=== PATIENT | female | born 1945 | race Caucasian/White ===

== ENCOUNTER 2025-05-24 13:49 | Emergency (ER) | payer MEDICARE, SELFPAY ==
[2025-05-24] VITALS (10 sets, daily range): BP systolic 111–186; BP diastolic 56–99; PULSE 81–113; RESP 16–24; TEMP 36.5–36.6; O2SAT 95–98; BMI 24.5
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
[2025-05-24 14:24] LABS: Hematocrit 42.5 % (37-47); Hemoglobin 14.4 g/dL (12.0-15.0); Immature Granulocytes Count 0.420 X10^3/uL (0.0-0.0); Mean Corp Hgb Conc 33.9 g/dL (32-36); Mean Corpuscular Volume 93.2 fL (81-99); Mean Platelet Vol. 10.5 fl (6.2-12.0); NRBC Flagged by Analyzer 0 % (0-5); Platelet Count 245 K/mm3 (150-450); RBC Distribution Width CV 12.4 % (11.6-14.6); RBC Distribution Width SD 42.9 fl (35.1-43.9); Red Blood Count 4.56 M/mm3 (4.2-5.4); White Blood Count 11.9 K/mm3 (4.4-11.0)
[2025-05-24 14:41] LABS: Alcohol, Blood (Medical)-Serum < 10.1 mg/dL (<=10.0); Anion Gap 13 (5-15); BUN 20 mg/dL (4-19); BUN/Creat Ratio 33.6 RATIO (10-20); Calcium,Total 9.3 mg/dL (7.6-11.0); Carbon Dioxide 22.9 mmol/L (21.0-32.0); Chloride 107 mmol/L (98-108); Estimated Creatinine Clearance 44.75 ml/min (50-250); Glucose 109 mg/dL (70-99); Potassium 3.3 mmol/L (3.3-5.1)
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
[2025-05-24 15:04] LABS: Troponin T High Sensitivity 17 ng/L (<=14)
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
--- OUTSIDE RECORDS SUMMARY | 2025-05-24 15:14 | XMS RPT_ITS | CCD ---
Author Organization [facility] Care Team Providers Care Procurement Forester Name Role Phone Tabin, Edelmira Kaci Unavailable Unavailab le Ita, Arthur Unavailable Unavailable Arsenio Arteaga Unavailable Unavail able DAI MOY Referring Unavailabl e Tabjag, Edelmira Unavailable Unavailable Arsenio Arteaga Unavailable Unavailable None, No PCP Unavailable Unavailable Tabin, Edelmira F Unavailable Unavailable Ita, Arthur Unavailable Unavailable Mick Edelmira F Unavailable Unavailable Arsenio Arteaga Unavailable Unavailable Unavailable Arsenio Arteaga MD Primary Care Provider [phone] Unavailable Unavailable Arsenio Arteaga Unavailable Janee Spivey Unavailable Dr. Thor James Admitting Un available Christiano, Dr. Pressley Referring Unavailable Dr. Arsenio Arteaga Primary Care Senha Hernandez, Dr. Keegan Leon Attending MD LAURENT Peck Attending Delaney ailsilvia Arteaga, Dr. Arsenio Unger Primary Care Sneha vashanon Arteaga, Dr. Arsenio Unger Primary Care Sneha vailable Elmira, Ms. Swati Richards Attending Sanam Arteaga, Dr. Arsenio Unger Primary Care Sneha vailavasquez Ku, Ms. Swati Richards Attending Sanam Arteaga, Dr. Arsenio Unger Primary Care Sneha vailable Elmira, Ms. Swati Richards Attending Sanam Arteaga, Dr. Arsenio Unger Primary Care Sneha vailavasquez Ku, Ms. Swati Richards Attending Dr. Arsenio Pandey Primary Care Sneha MD JANEE Mello Admitting Unavailable MD JANEE SPIVEY Attending Unavailable MD JANEE SPIVEY Referring Unavailable Arsenio Arteaga MD Primary Care Provide r CECILE FERRO Attending Unavailable ABAOmar BOWLES Referring Unavailable JENNI, ARSENIO POWERSONY Primary Care Unavail able SAPPHIRE FRANCO Attending Unavailable ARTEAGA, ARSENIO YOHANA Primary Care Unavail able ARTHUR JORDAN Attending Unavailable ARSENIO ARTEAGA Primary Care Unavail able JENNI, ARSENIO UNGER Primary Care Unavail silvia Arteaga MD, Arsenio Unger Unavailable [phone] ARSENIO SHABAZZ Referring Unavailable ARTEAGA, ARSENIO UNGER Primary Care Unavail Arsenio Garcia MD A Primary Care Provider [phone] LETY BENAVIDES Attending Unavailable SELF Referring Unavailable ARSENIO ARTEAGA A Primary Care Unavailable SRINIVASAN ARTEAGAWARD A Primary Care Unavailable EVAN DELVALLE Attending Unavailable LETY BENAVIDES Attending Unavailable SRINIVASAN ARTEAGAWARD A Primary Care Unavailable SELF Referring Unavailable Allergies Allergy Classification Reported Allergen(s) Allergy Type Date of Onset Reaction(s) Facility (8 sources) Penicillins; Translations: [PENICILLINS] Propensity to adverse reactions to drug (disorder) 3 Unknown [facility] Repository (1 source) Penicillin Drug Allergy Unknown [facility] (1 source) ALLERGIES NOT ON FILE; Translations: [ALLERGIES NOT ON FILE] Propensity to adverse reactions (disorder) [facility] 3 Repository Medications Current Medications Medication Drug Class(es) Dates Sig (Normalized) Sig (Original) acetaminophen 500 mg oral tablet (1 source) take 2 tablets by mouth three times daily as needed Tylenol 500 mg oral tablet ; 2 tab(s) orally 3 times a day, As Needed Quantity: 0 Refills: 0 Ordered: 21-Mar-2023 Rebecca Walton Generic Substitution Allowed amLODIPine 5 mg / benazepril hydrochloride 10 mg oral capsule (5 sources) Dihydropyridine Calcium Channel Chelsie, Angiotensin Converting Enzyme Inhibitor take 1 capsule by mouth once daily amLODIPine-benazepr il (LOTREL) 5-10 mg per capsule Take 1 capsule by mouth once daily. Active Comment on above: Take 1 capsule by cox branson once daily. cefuroxime 500 mg oral tablet (1 source) Cephalosporin Antibacterial Start: 03-23-2023 take 1 tablet by mouth twice daily at mealtime cefuroxime 500 mg oral tablet ; 1 tab(s) orally 2 times a day Quantity: 10 Refills: 0 Ordered: 23-Mar-2023 Janee Spivey Start: 23-Mar-2023 Generic Substitution Allowed Comments: Finish all this medication unless otherwise directed by prescriber.Medicati on should be taken with plenty of water.Take with food or milk. Comment on above: Finish all this medi cation unless otherwise directed by prescriber.Medication should be taken with plenty of water.Take with food or milk. ergocalciferol 0.2 mg/ml oral solution (3 sources) Provitamin D2 Compound ergocalciferol (Vitamin D-2) 200 mcg/mL (8,000 unit/mL) drops Take by mouth once daily. Active take 1 capsule by mouth every we ek ergocalciferol 1.25 mg (50,000 intl units) oral capsule ; 1 cap(s) orally once a week Quantity: 0 Refills: 0 Ordered: 21-Mar-2023 Toyin Fontana Generic Substitution Allowed Completed/Discontinued Medications Medication Drug Class(es) Dates Sig (Normalized) Sig (Original) amLODIPine 5 mg oral tablet (9 sources) Dihydropyridine Calcium Channel Chelsie Start: 06-23-2017 amLODIPine Besylate 5 MG Oral Tablet Quantity: 90 Refills: 0 Ordered: 16-Oct-2017 DO Start : 23-Jun-2017 Active Start: 06-23-2017 amLODIPine Bes ylate 5 MG Oral Tablet Quantity: 90 Refills: 0 Start : 23-Jun-2017 Active Start: 03-11-2011 End: 03-11-2011 take 1 tablet by mouth once daily amlodipine 5 mg tablet ; 1 tab(s) orally once a day Quantity: 30 Refills: 0 Ordered: 11-Mar-2011 Gretta Campbell Start: 11-Mar-2011 End: 11-Mar-2011 Generic Substitution Allowed ibuprofen 800 mg oral tablet (12 sources) Nonsteroidal Anti-inflammatory Drug Start: 06-23-2017 take 1 tablet by mouth twice daily Ibuprofen 800 MG Oral Tablet take 1 tablet by mouth twice a day for ONE MONTH Quantity: 60 Refills: 0 Ordered: 23-Jun-2017 DO Start : 23-Jun-2017 Active take 1 tablet by jayden th three times daily as needed ibuprofen 800 mg oral tablet ; 1 tab(s) orally 3 times a day, As Needed Quantity: 0 Refills: 0 Ordered: 21-Mar-2023 Rebecca Walton Generic Substitution Allowed Comment on above: Take 800 mg by mouth twice daily. Problems Active Problems Problem Classification Problem Date Documented Da te Episodic/Chronic Allergic reactions (1 source) Allergy status to penicillin; Translations: [Allergy status to penicillin] Onset: 03-27-2023 Episodic Coagulation and hemorrhagic disorders (1 source) Thrombocytopenia, unspecified; Translations: [Thrombocytopenia, unspecified] Onset: 03-28-2023 Chronic Deficiency and other anemia (1 source) Anemia, unspecified; Translations: [Anemia, unspecified] Onset: 03-28-2023 Episodic Essential hypertension (2 sources) Essential (primary) hypertension; Translations: [Essential (primary) hypertension] Onset: 03-22-2023 Chronic Fever of unknown origin (2 sources) Fever; Translations: [Fever, unspecified] 03-22-2023 Episodic Fluid and electrolyte disorders (3 sources) Hypokalemia; Translations: [Hypopotassemia] Onset: 03-22-2023 03-22-2023 Episodic Genitourinary symptoms and ill-defined conditions (3 sources) Increased frequency of urination; Translations: [Frequency of micturition] Onset: 01-24-2024 01-24-2024 Episodic Malaise and fatigue (1 source) Weakness; Translations: [Weakness] Onset: 03-27-2023 Episodic Osteoarthritis (20 sources) Arthritis of hip; Translations: [Unilateral primary osteoarthritis, unspecified hip] Onset: 11-12-2013 Chronic Other connective tissue disease (9 sources) History of total knee arthroplasty; Translations: [Presence of right artificial knee joint] Onset: 08-17-2016 Chronic Other connective tissue disease (1 source) Pain in right lower leg; Translations: [Pain in right lower leg] Onset: 03-28-2023 Episodic Other connective tissue disease (1 source) Pain in right leg; Translations: [Pain of right lower extremity] Onset: 11-01-2024 Episodic Other ear and sense organ disorders (2 sources) Mixed conductive AND sensorineural hearing loss; Translations: [Mixed hearing loss, bilateral] Chronic Other ear and sense organ disorders (2 sources) Bilateral hearing loss; Translations: [Mixed hearing loss, bilateral] Chronic Other ear and sense organ disorders (2 sources) Mixed conductive and sensorineural hearing loss, unilateral, 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; Translations: [Mixed conductive and sensorineural hearing loss, unilateral, 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] Onset: 08-28-2023 Chronic Other ear and sense organ disorders (2 sources) Sensorineural hearing loss, unilateral, right ear, with restricted hearing on the contralateral side; Translations: [Sensorineural hearing loss, unilateral, right ear, with restricted hearing on the contralateral side] Onset: 08-28-2023 Chronic Other ear and sense organ disorders (2 sources) Bilateral tinnitus; Translations: [Tinnitus, unspecified] Episodic Other ear and sense organ disorders (1 source) Presbycusis; Translations: [Presbycusis, bilateral] 09-19-2023 Episodic Other gastrointestinal disorders (1 source) Constipation; Translations: [Constipation, unspecified] 01-24-2024 Episodic Other gastrointestinal disorders (2 sources) Constipation, unspecified; Translations: [Constipation, unspecified] Onset: 01-24-2024 Episodic Other inflammatory condition of skin (2 sources) Other pruritus; Translations: [Other pruritus] Onset: 03-05-2024 Episodic Other nervous system disorders (2 sources) Difficulty walking; Translations: [Difficulty in walking] Chronic Other nervous system disorders (2 sources) Encephalopathy, unspecified; Translations: [Encephalopathy, unspecified] Onset: 03-22-2023 Chronic Other nervous system disorders (1 source) Difficulty in walking, not elsewhere classified; Translations: [Difficulty in walking, not elsewhere classified] Onset: 03-14-2023 Chronic Other nervous system disorders (1 source) Unspecified abnormalities of gait and mobility; Translations: [Unspecified abnormalities of gait and mobility] Onset: 03-27-2023 Episodic Other non-traumatic joint disorders (6 sources) Hip pain; Translations: [Pain in joint, pelvic region and thigh] Episodic Other non-traumatic joint disorders (6 sources) Hip stiff; Translations: [Stiffness of joint, not elsewhere classified, pelvic region and thigh] Episodic Other non-traumatic joint disorders (1 source) Stiffness of unspecified hip, not elsewhere classified; Translations: [Stiffness of unspecified hip, not elsewhere classified] Onset: 03-14-2023 Episodic Other non-traumatic joint disorders (1 source) Pain in left hip; Translations: [Pain in left hip] Onset: 03-14-2023 Episodic Prolapse of female genital organs (3 sources) Midline cystocele; Translations: [Cystocele, midline] Onset: 01-24-2024 01-24-2024 Chronic Residual codes; unclassified (4 sources) Disorientation, unspecified; Translations: [Disorientation, unspecified] Onset: 03-27-2023 Episodic Residual codes; unclassified (2 sources) Altered mental status, unspecified; Translations: [Altered mental status, unspecified] Onset: 03-22-2023 Episodic Residual codes; unclassified (1 source) Transient alteration of awareness; Translations: [Transient alteration of awareness] Onset: 03-27-2023 Episodic Residual codes; unclassified (1 source) Other amnesia; Translations: [Other amnesia] Onset: 03-27-2023 Episodic Spondylosis; intervertebral disc disorders; other back problems (5 sources) Osteoarthritis of lumbar spinal facet joint; Translations: [Spondylosis without myelopathy or radiculopathy, lumbar region] Onset: 12-25-2018 12-25-2018 Chronic Spondylosis; intervertebral disc disorders; other back problems (1 source) Spinal stenosis, lumbar region without neurogenic claudication; Translations: [Spinal stenosis, lumbar region without neurogenic claudication] Onset: 12-25-2018 Sprains and strains (1 source) Sprain of unspecified cruciate ligament of right knee, initial encounter; Translations: [Sprain of cruciate ligament of right knee, initial encounter] Onset: 11-01-2024 Episodic Superficial injury; contusion (2 sources) Contusion of right knee; Translations: [Contusion of right knee, initial encounter] 10-30-2024 Episodic Unclassified (2 sources) R41.0 DELIRIUM ACUTE 03-23-2023 Comment on above: R41.0 DELIRIUM ACUTE Unclassified (1 source) Lactate blood increase 03-22-2023 Unclassified (1 source) Unspecified dementia, unspecified severity, with agitation; Translations: [Unspecified dementia, unspecified severity, with agitation] Onset: 03-28-2023 Unclassified (1 source) Elevation of levels of liver transaminase levels; Translations: [Elevation of levels of liver transaminase levels] Onset: 03-28-2023 Unclassified (1 source) Contact with and (suspected) exposure to COVID-19; Translations: [Contact with and (suspected) exposure to COVID-19] Onset: 03-22-2023 Urinary tract infections (3 sources) Urinary tract infectious disease; Translations: [Urinary tract infection, site not specified] Onset: 03-22-2023 03-22-2023 Episodic Past or Other Problems Problem Classification Problem Date Documented Da te Episodic/Chronic Joint disorders and dislocations; trauma-related (5 sources) Acute tear of lateral meniscus of right knee; Translations: [Other tear of lateral meniscus, current injury, right knee, initial encounter] Onset: 01-05-2016 01-05-2016 Episodic Other bone disease and musculoskeletal deformities (5 sources) Osteopenia; Translations: [Other specified disorders of bone density and structure, other site] Onset: 12-25-2018 12-25-2018 Episodic Other connective tissue disease (5 sources) Iliotibial band friction syndrome of left knee; Translations: [Iliotibial band syndrome, left leg] Onset: 06-17-2014 06-17-2014 Episodic Other ear and sense organ disorders (2 sources) Tinnitus, bilateral; Translations: [Tinnitus, bilateral] Onset: 08-28-2023 Episodic Other non-traumatic joint disorders (8 sources) Pain in right knee; Translations: [Pain in joint, lower leg] Onset: 11-12-2013 11-12-2013 Episodic Other screening for suspected conditions (not mental disorders or infectious disease) (16 sources) Patient encounter status; Translations: [Other screening mammogram] Onset: 08-12-2013 03-22-2023 Episodic Spondylosis; intervertebral disc disorders; other back problems (10 sources) Chronic low back pain; Translations: [Lumbago with sciatica, left side] Onset: 12-25-2018 12-25-2018 Episodic Unclassified (6 sources) Patient encounter status; Translations: [Encounter for screening mammogram for malignant neoplasm of breast] Unclassified (1 source) ALT MENTAL 03-22-2023 Comment on above: ALT MENTAL Unclassified (1 source) DELIRIUM R41.0 03-22-2023 Comment on above: DELIRIUM R41.0 Unclassified (1 source) DELIRIUM R41.0. 03-23-2023 Comment on above: DELIRIUM R41.0. Unclassified (3 sources) Onset: 09-19-2023 09-19-2023 NEGATED: Highlighted row has not occurred!Residual codes; unclassified (17 sources) Disease Episodic Results Test Name Value Interpretation Reference Range Facility CNOVon 11-20-2024 CNOV Office Visit (ACMMOT ) -- MIKO REECE ([id number]) 1945 F Date Time Provider Department 11/20/24 10:30 AM LETY BENAVIDES ACLILLIAN During your visit today, we recorded the following information about you: Weight Height 59 kg 1.6 m Lety Benavides DO 11/20/2024 11:14 AM Signed Miko is here to 3 weeks to follow-up on her right knee sprain. She is doing well. She states she is resumed most of her normal activities. At this point she has unrestricted range of motion of her knee with no strength deficits. There is no gross instability of her prosthesis. Her right lower extremities grossly neurovascularly intact. At this point she can perform activities to her tolerance return to the office as needed. Assessment: Right knee contusion with history of right total knee arthroplasty I spent a total of 10 minutes on the date of the service which included preparing to see the patient, [id number] patient care, completing clinical documentation, performing a medically appropriate examination, and counseling and educating the patient/family/caregiver. Referring Provider: SELF [200] Allergies As of Date: 11/20/2024 Noted Allergy Reaction PENICILLINS 08/12/2013 16 - Unknown Comments: Pt had when wisdom teeth were removed, can't remember the reaction. Date Reviewed: 11/20/2024 Reviewed by: Pamela Wang - Fully Assessed Reason for Visit: Follow Up [171] Knee Pain [132] Primary Visit Diagnosis:Status post total right knee replacement using cement [Z96.651] Other Visit Diagnosis:Contusion of right knee, initial encounter [S80.01XA] Prescriptions as of 11/20/2024 - ibuprofen (MOTRIN) 800 mg tablet Take 800 mg by mouth twice daily. - amLODIPine-benazepril (LOTREL) 5-10 mg per capsule Take 1 capsule by mouth once daily. Problem List As Of Date 11/20/2024 Noted Resolved Special screening for malignant neoplasms, colo*08/12/2013 Knee pain, right [M25.561] 11/12/2013 Osteoarthritis of right knee [M17.11] 11/12/2013 Iliotibial band syndrome of left side [M76.32] 06/17/2014 Osteoarthritis of left knee [M17.12] 06/17/2014 Acute lateral meniscus tear of right knee [S83.*01/05/2016 Primary osteoarthritis of right knee [M17.11] 07/11/2016 Osteoarthrosis, localized, primary, knee [M17.1*07/14/2016 Status post total right knee replacement using *08/17/2016 Chronic bilateral low back pain with left-sided*12/25/2018 Osteopenia of lumbar spine [M85.88] 12/25/2018 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 Follow-up and Disposition History for Encounter Date Provider Department Center 11/20/2024 [id number], [facility] Encounter Status:Closed by LETY BENAVIDES on 11/20/24 [facility] ED NOTEon 11-01-2024 ED NOTE HNO ID: [id number] Author: RADHA MILIAN RN Service: ? Author Type: Registered Nurse Type: ED Notes Filed: 11/01/2024 17:41 Note Text: Reviewed d/c instructions with pt. Pt states that they understand and have no questions regarding d/c and follow- up. Pt was advised to follow up with their PCP and return to ED if symptoms worsen prior to follow-up with PCP. Pt verbalized understanding. [facility] ED NOTE HNO ID: [id number] Author: PATEL BAUMANN RN Service: Nursing Author Type: Registered Nurse Type: ED Notes Filed: 11/01/2024 15:26 Note Text: Report given to Radha ESPINOZA [facility] ED NOTE HNO ID: [id number] Author: PATEL BAUMANN RN Service: Nursing Author Type: Registered Nurse Type: ED Notes Filed: 11/01/2024 14:55 Note Text: Pt AANDOX3 comes to ED with c/o right knee pain, right welch pain, right ankle pain and r foot swelling that started on 10/22/2024 after a fall. Pt stated she went to see PCP and Makayla who did an xray. Pt stated Antonetten said xrays were negative for a fracture. Pt stated swelling to right knee and ankle. Pt not asking for pain meds at this time because she took ibuprofen before she came to ED. [facility] ED PROV NOTEon 11-01-2024 ED PROV NOTE HNO ID: [id number] Author: EVAN DELVALLE MD Service: Emergency Medicine Author Type: Physician Type: ED Provider Notes Filed: 11/01/2024 17:16 Note Text: ED Provider Note Patient Name: Miko Reece : 1945 SERVICE DATE: 11/01/24 History Patient presents with: Knee Pain: Right knee pain/injury that radiates down right leg- pt states she slipped on ice and fell on 10/22/24 and was seen by ortho who did an xray but pain has continued to get worse Leg Pain Location: Fell about a week ago injured right knee x-rays were negative still having pain and no pain to the right calf and right thigh Quality: Right leg. Severity: Moderate Onset quality: Sudden Duration: 10 days Timing: Constant Chronicity: New Context: Slipped and fell injured her right knee Relieved by: Nothing Worsened by: Flexion Associated symptoms: no chest pain, no cough, no shortness of breath, no sore throat, no vomiting and no wheezing PAST MEDICAL HISTORY Diagnosis Date Hypertension PAST SURGICAL HISTORY Procedure Laterality Date ARTHROCENTESIS ASPIRAND/INJ MAJOR JT/BURSA W/O US #3 Euflexxa Rt knee ARTHROCENTESIS ASPIRAND/INJ MAJOR JT/BURSA W/O US 04-23-15-Verdun right knee cortisone injection ARTHROCENTESIS ASPIRAND/INJ MAJOR JT/BURSA W/O US 05-19-15-Verdun #3 Euflexxa right knee ARTHROCENTESIS ASPIRAND/INJ MAJOR JT/BURSA W/O US 05-28-15-Verdun #3 Euflexxa right knee ARTHROCENTESIS ASPIRAND/INJ MAJOR JT/BURSA W/O US 01-26-16-Verdun #3 Euflexxa right knee ARTHRP KNE CONDYLEANDPLATU MEDIALANDLAT COMPARTMENTS Right 07/11/16 KNEE ARTHROSCOPY January 03, 2011 right PAST SURGICAL HISTORY OF 2002 Left big toe joint replacement FAMILY HISTORY Problem Relation Age of Onset Breast Cancer Mother 70 mastectomy Breast Cancer Daughter 43 double mastectomy Cancer Father unknown Prostate Cancer Brother x2 Social History Tobacco Use Smoking status: Never Smokeless tobacco: Never Vaping Use Vaping status: Never Used Substance and Sexual Activity Alcohol use: Yes Alcohol/week: 1.0 standard drink of alcohol Types: 1 Glasses of Wine (5oz) per week Comment: a small glass of wine every day or so Drug use: No Sexual activity: Not on file ALLERGIES Allergen Reactions Penicillins Unknown Pt had when wisdom teeth were removed, can't remember the reaction. Review of Systems Constitutional: Negative. HENT: Negative for sore throat. Eyes: Negative. Respiratory: Negative for cough, shortness of breath and wheezing. Cardiovascular: Negative for chest pain. Gastrointestinal: Negative for vomiting. Genitourinary: Negative. Musculoskeletal: Positive for gait problem. Skin: Negative. Psychiatric/Behavioral: Negative. All other systems reviewed and are negative. Physical Exam Vitals [11/01/24 1433] BP Pulse Temp Temp src Resp SpO2 Weight Height 191/86 106 36.8 ?C (98.2 ?F) Tympanic 16 97 % 59 kg (130 lb) -- Physical Exam Vitals and nursing note reviewed. Constitutional: Appearance: She is well-developed. HENT: Nose: Nose normal. Mouth/Throat: Mouth: Mucous membranes are moist. Eyes: Extraocular Movements: Extraocular movements intact. Conjunctiva/sclera: Conjunctivae normal. Pupils: Pupils are equal, round, and reactive to light. Cardiovascular: Rate and Rhythm: Normal rate and regular rhythm. Pulses: Normal pulses. Heart sounds: Normal heart sounds, S1 normal and S2 normal. No murmur heard. No gallop. Pulmonary: Effort: Pulmonary effort is normal. Breath sounds: Normal breath sounds. Abdominal: General: Bowel sounds are normal. Palpations: Abdomen is soft. Musculoskeletal: General: Normal range of motion. Cervical back: Normal range of motion and neck supple. Legs: Comments: Mild tenderness to the right calf. Mild tenderness medial aspect of the right knee. No laxity. No joint effusion. Full flexion extension to the right knee Skin: General: Skin is warm and dry. Capillary Refill: Capillary refill takes less than 2 seconds. Neurological: General: No focal deficit present. Mental Status: She is alert and oriented to person, place, and time. Psychiatric: Mood and Affect: Mood normal. Diagnostic Testing ED Labs Ordered and Reviewed - No data to display Procedures ED Course / Clinical Impression Clinical Impressions as of 11/01/24 1716 Sprain of cruciate ligament of right knee, initial encounter Pain of right lower extremity MDM / Disposition / Plan MEDICAL DECISION MAKING Number and Complexity of Problems Differential Diagnosis: DVT loose prosthesis MDM Data External documents reviewed prior inpatient notes. My EKG interpretation: My CT interpretation: My X-ray interpretation: My Ultrasound interpretation: Tests considered but not ordered Decision rules/scores evaluated: Discussed with: Treatment and Disposition ED Course: Patient suffered a mechanical injury about (more content not included)... Normal [facility] US DVT LOWER RTon 11-01-2024 US DVT LOWER RT * * *Final Report* * * DATE OF EXAM: Nov 01 2024 4:34PM ASU 1007 - US DVT LOWER RT / PROCEDURE REASON: Leg deep vein thrombosis (DVT), new symptoms * * * * Physician Interpretation * * * * EXAMINATION: RIGHT LOWER EXTREMITY DEEP VENOUS ULTRASOUND WITH DOPPLER IMAGING CLINICAL HISTORY: Leg pain or tenderness. TECHNIQUE: Grayscale with compression maneuvers, color Doppler and spectral Doppler imaging of the right proximal deep veins was performed. Grayscale with compression maneuvers of the peroneal and posterior tibial veins was performed. The right great and small saphenous veins were evaluated at their insertion to the deep system. The contralateral common femoral vein was imaged for comparison. Images were obtained and stored in a permanent archive. MQ: [id number] COMPARISON: None RESULT: RIGHT LOWER EXTREMITY PROXIMAL DEEP VEINS Distal External Iliac, Common Femoral and proximal Profunda Veins: Compression: Normal Doppler: Normal, spontaneous respirophasic flow. Normal response to augmentation. Femoral vein: Compression: Normal Doppler: Normal, spontaneous flow. Normal response to augmentation. Popliteal vein: Compression: Normal Doppler: Normal, spontaneous flow. Normal response to augmentation. CALF DEEP VEINS Peroneal veins: Normal compression. Posterior tibial veins: Normal compression. Gastrocnemius and Soleal veins: Not imaged. SUPERFICIAL VEINS Great saphenous: Patent and compressible at insertion into common femoral vein; not otherwise assessed. Small Saphenous: Patent and compressible in the proximal calf, not otherwise assessed. LEFT LOWER EXTREMITY (FOR COMPARISON) Common Femoral Vein: Compression: Normal Doppler: Normal, spontaneous respirophasic flow. Normal response to augmentation. IMPRESSION: Negative study for proximal DVT in the right lower extremity. Negative study for calf DVT in the right lower extremity. Negative study for superficial thrombophlebitis in the imaged segments of the right lower extremity. Substance Abuse Services Director: EMANI Transcribe Date/Time: Nov 01 2024 5:06P Dictated by : JANEE ALBA MD This examination was interpreted and the report reviewed and electronically signed by: JANEE ALBA MD on Nov 01 2024 5:08PM EST [id number] Normal [facility] XR ANKLE 3V AP/LAT/OBL RTon 11-01-2024 XR ANKLE 3V AP/LAT/OBL RT * * *Final Report* * * DATE OF EXAM: Nov 01 2024 3:23PM ASX [id number] - XR ANKLE 3V AP/LAT/OBL RT / PROCEDURE REASON: Ankle pain, no prior imaging * * * * Physician Interpretation * * * * [id number] INDICATION: Ankle pain, no prior imaging EXAMINATION: XR ANKLE 3V AP/LAT/OBL RT, XR KNEE 2V AP/LAT RT COMPARISON:None RESULT: 3 views of the right ankle demonstrate soft tissue swelling both medially and laterally. No acute bony abnormality is seen. Vascular calcifications are noted. 2 views of the right knee. Right knee prosthesis present. Soft tissue swelling noted involving suprapatellar and infrapatellar soft tissues. No acute abnormality identified IMPRESSION: No acute abnormality identified. Right knee prosthesis. Substance Abuse Services Director: PSCB Transcribe Date/Time: Nov 01 2024 3:30P Dictated by : GERONIMO FABIAN MD This examination was interpreted and the report reviewed and electronically signed by: GERONIMO FABIAN MD on Nov 01 2024 3:34PM EST [id number] [facility] XR KNEE 2V AP/LAT RTon 11-01 XR KNEE 2V AP/LAT RT * * *Final Report* * * DATE OF EXAM: Nov 01 2024 3:23PM ASX 5207 - XR KNEE 2V AP/LAT RT / PROCEDURE REASON: Trauma * * * * Physician Interpretation * * * * [id number] INDICATION: Ankle pain, no prior imaging EXAMINATION: XR ANKLE 3V AP/LAT/OBL RT, XR KNEE 2V AP/LAT RT COMPARISON:None RESULT: 3 views of the right ankle demonstrate soft tissue swelling both medially and laterally. No acute bony abnormality is seen. Vascular calcifications are noted. 2 views of the right knee. Right knee prosthesis present. Soft tissue swelling noted involving suprapatellar and infrapatellar soft tissues. No acute abnormality identified IMPRESSION: No acute abnormality identified. Right knee prosthesis. Substance Abuse Services Director: [facility] Transcribe Date/Time: Nov 01 2024 3:30P Dictated by : GERONIMO FABIAN MD This examination was interpreted and the report reviewed and electronically signed by: GERONIMO FABIAN MD on Nov 01 2024 3:34PM EST [id number] [facility] CNOVon 10-30-2024 CNOV Office Visit (SRIKANTH ) -- MIKO REECE ([id number]) 1945 F Date Time Provider Department 10/30/24 2:00 PM LETY BENVAIDES During your visit today, we recorded the following information about you: Weight Height 59 kg 1.6 m Lety Benavides DO 10/30/2024 2:42 PM Signed Addendum: Assessment/Plan: ASSESSMENT/PLAN: 1. Status post total right knee replacement using cement - ICD9: V43.65, ICD10: Z96.651 (primary diagnosis) At this point did have a discussion with regard to the nature of the problem in the context of her history of a right total knee arthroplasty. I did review the x-rays taken at the outside institution with the patient today. I did recommend the initiation of a home exercise program since she is improving already. She was in agreement this. Did instruct her today. She should continue to use anti-inflammatory medications and acetaminophen as needed for pain. She had no further questions at this time. 2. Contusion of right knee, initial encounter - ICD9: 924.11, ICD10: S80.01XA Lety DO Makayla I spent a total of 30 minutes on the date of the service which included preparing to see the patient, [id number] patient care, completing clinical documentation, obtaining and/or reviewing separately obtained history, performing a medically appropriate examination, counseling and educating the patient/family/caregiver, ordering medications, tests, or procedures, independently interpreting results (not separately reported), and communicating results to the patient/family/caregiver. I agree with the Chief Complaint, ROS, and Past Histories independently gathered by the clinical lab support technician and the remaining scribed note accurately describes my personal service to the patient. CRISTOBAL Reece is a 79 year old female who presents with complaint of right knee pain. Patient has a history of right TKA in 2016. She reports falling from standing without loss of consciousness about 1 week ago. She does report that her leg twisted underneath her. She did not fall directly onto the knee. Her pain is with weightbearing. She does have pain with bed mobility and with sit to stand. She denies numbness or tingling. Current Outpatient Medications Medication Sig ibuprofen (MOTRIN) 800 mg tablet Take 800 mg by mouth twice daily. amLODIPine-benazepril (LOTREL) 5-10 mg per capsule Take 1 capsule by mouth once daily. No current facility-administered medications for this visit. Review of Systems Constitutional: Negative. HENT: Negative. Respiratory: Negative. Cardiovascular: Negative. Gastrointestinal: Negative. Endocrine: Negative. Skin: Negative. Neurological: Negative for numbness. Hematological: Negative. Musculoskeletal: Positive for joint swelling. Right Knee Exam Tenderness The patient is experiencing tenderness in the medial joint line and lateral joint line (TTP in the posterior knee). Range of Motion Extension: 5 Flexion: 120 Tests Varus: negative Valgus: negative Patellar apprehension: negative Other Erythema: absent Scars: present Sensation: normal Pulse: present Swelling: mild Comments: Mild ecchymosis at the medial gastroc and medial ankle. Referring Provider: SELF [[id number]] Allergies As of Date: 10/30/2024 Noted Allergy Reaction PENICILLINS 08/12/2013 16 - Unknown Comments: Pt had when wisdom teeth were removed, can't remember the reaction. Date Reviewed: 10/30/2024 Reviewed by: Pamela Wang - Fully Assessed Reason for Visit: Knee Pain [132] Swelling [205] Primary Visit Diagnosis:Status post total right knee replacement using cement [Z96.651] Other Visit Diagnosis:Contusion of right knee, initial encounter [S80.01XA] Prescriptions as of 10/30/2024 - ibuprofen (MOTRIN) 800 mg tablet Take 800 mg by mouth twice daily. - amLODIPine-benazepril (LOTREL) 5-10 mg per capsule Take 1 capsule by mouth once daily. Problem List As Of Date 10/30/2024 Noted Resolved Special screening for malignant neoplasms, colo*08/12/2013 Knee pain, right [M25.561] 11/12/2013 Osteoarthritis of right knee [M17.11] 11/12/2013 Iliotibial band syndrome of left side [M76.32] 06/17/2014 Osteoarthritis of left knee [M17.12] 06/17/2014 Acute lateral meniscus tear of right knee [S83.*01/05/2016 Primary osteoarthritis of right knee [M17.11] 07/11/2016 Osteoarthrosis, localized, primary, knee [M17.1*07/14/2016 Status post total right knee replacement using *08/17/2016 Chronic bilateral low back pain with left-sided*12/25/2018 Osteopenia of lumbar spine [M85.88] 12/25/2018 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 Follow-up and Disposition History for Encounter Date (more content not included)... Normal [facility] XR KNEE RIGHT 4+ VIEWSon XR KNEE RIGHT 4+ VIEWS Interpreted By: Yasmeen Xavier, STUDY: XR KNEE RIGHT 4+ VIEWS; 10/23/2024 3:52 pm INDICATION: Signs/Symptoms:right knee pain. COMPARISON: none ACCESSION NUMBER(S): [id number] ORDERING CLINICIAN: INTERFACE UNSPECIFIELDPROVIDER FINDINGS: Right Total knee arthroplasty without evidence of hardware complication. No effusion. No fracture or dislocation. No osseous lesion. Extensive atherosclerotic calcifications of the arterial vasculature without IMPRESSION Right Total knee arthroplasty without evidence of hardware complication. MACRO none Signed by: Yasmeen Xavier 10/24/2024 3:55 PM Dictation workstation: [id number] Normal [facility] Creatine kinaseon 03-05-2024 CK [Catalytic activity/Vol] 87 U/L Normal 0-215 [facility] Comment on above: Performed By: #### 2 157-6 #### FARIDA Crenshaw ([id number]) [facility] ([facility]) [address] [place] [address] Lactate dehydrogenaseon 02-07 LDH Lactate to pyruvate reaction [Catalytic activity/Vol] 151 U/L Normal 84-246 [facility] Comment on above: Performed By: #### 1 4804-9 #### FARIDA Crenshaw ([id number]) [facility] ([facility]) [address] [place] [address] MISCELLANEOUS LAB TESTon SCAN RESULT See Scanned Result Normal [facility] Comment on above: Order Comment: Ivis almodovar Performed By: #### M ISC1 #### EXT NON INTERFACED LABS (BEAKER) ([facility]) [id number] [place] [address] Nuclear Abon 03-05-2024 Nuclear Ab Hep2 substrate Ql (S) Negative Normal Negative [facility] Comment on above: Result Comment: The Antinuclear Antibody (FAHAD) test was performed using indirect immunofluorescence assay with HEp-2 cells slide. Performed By: #### 5 9069-5 #### FARIDA Crenshaw ([id number]) [facility] ([facility]) [id number] [place] [address] POCT UA (nonautomated) maxwell celaya resultedon 01-24-2024 Glucose Test strip (U) [Mass/Vol] Negative NEGATIVE mg/dl [facility] Work Phone: Hemoglobin Ql (U) Negative NEGATIVE [facility] Work Phone: Leukocyte esterase Test strip Ql (U) Negative NEGATIVE [facility] Work Phone: Nitrite Ql (U) Negative NEGATIVE [facility] Work Phone: POC Protein, Urine Negative NEGATIVE, 30 (1+) mg/dl [facility] Work Phone: [facility] Work Phone: CBCon 03-28-2023 Erythrocyte distribution width (RBC) [Ratio] 15.2 % High 11.5 - 14.5 [facility] Comment on above: Performed By: #### C OAGS #### [facility] [address] [place] [address] Hematocrit (Bld) [Volume fraction] 29.0 % Low 36.0 - 46.0 [facility] Comment on above: Performed By: #### C OAGS #### [facility] [address] [place] [address] Hemoglobin (Bld) [Mass/Vol] 9.7 g/dL Low 12.0 - 16.0 [facility] Comment on above: Performed By: #### C OAGS #### [facility] [address] [place] [address] MCHC (RBC) [Mass/Vol] 33.4 g/dL Normal 32.0 - 36.0 [facility] Comment on above: Performed By: #### C OAGS #### [facility] [address] [place] [address] MCV (RBC) [Entitic vol] 90 fL Normal 80 - 100 [facility] Comment on above: Performed By: #### C OAGS #### [facility] [address] [place] [address] Platelets (Bld) [#/Vol] 125 10*3/uL Low 150 - 450 [facility] Comment on above: Performed By: #### C OAGS #### [facility] [address] [place] [address] RBC 3.21 x10E12/L Low 4.00 - 5.20 [facility] Comment on above: Performed By: #### C OAGS #### [facility] [address] [place] [address] WBC (Bld) [#/Vol] 4.9 10*3/uL Normal 4.4 - 11.3 [facility] Comment on above: Performed By: #### C OAGS #### [facility] [id number] [place] [address] COMPREHENSIVE PANELon 03-28- 2022 Albumin [Mass/Vol] 2.3 g/dL Low 3.4 - 5.0 [facility] Comment on above: Performed By: #### C MP #### [facility] [address] [place] [address] ALP [Catalytic activity/Vol] 182 U/L High 33 - 136 [facility] Comment on above: Performed By: #### C MP #### [facility] [id number] [place] [address] ALT [Catalytic activity/Vol] 37 U/L Normal 7 - 45 [facility] Comment on above: Result Comment: Елена ents treated with Sulfasalazine may generate falsely decreased results for ALT. Performed By: #### C MP #### [facility] [address] [place] [address] Anion gap [Moles/Vol] 11 mmol/L Normal 10 - 20 [facility] Comment on above: Performed By: #### C MP #### [facility] [address] [place] [address] AST [Catalytic activity/Vol] 58 U/L High 9 - 39 [facility] Comment on above: Performed By: #### C MP #### [facility] [address] [place] [address] Bilirubin [Mass/Vol] 1.0 mg/dL Normal 0.0 - 1.2 [facility] Comment on above: Performed By: #### C MP #### [facility] [address] [facility] [place] [address] Calcium [Mass/Vol] 7.8 mg/dL Low 8.6 - 10.3 [facility] Comment on above: Performed By: #### C MP #### [facility] [address] [facility] [place] [address] Chloride [Moles/Vol] 107 mmol/L Normal 98 - 107 [facility] Comment on above: Performed By: #### C MP #### [facility] [address] [place] [address] Creatinine [Mass/Vol] 0.53 mg/dL Normal 0.50 - 1.05 [facility] Comment on above: Performed By: #### C MP #### [facility] [address] [place] [address] eGFR FEMALE >90 Normal >90 [facility] Comment on above: Result Comment: CALC ULATIONS OF ESTIMATED GFR ARE PERFORMED USING THE 2020 CKD-EPI STUDY REFIT EQUATION WITHOUT THE RACE VARIABLE FOR THE IDMS-TRACEABLE CREATININE METHODS. https://jasn.asnjournals.org/content//ASN.33593728 88 Performed By: #### C MP #### [facility] [address] [facility] [place] [address] Glucose [Mass/Vol] 83 mg/dL Normal 74 - 99 [facility] Comment on above: Performed By: #### C MP #### [facility] [address] [place] [address] HCO3 (Bld) [Moles/Vol] 27 mmol/L Normal 21 - 32 [facility] Comment on above: Performed By: #### C MP #### [facility] [address] [place] [address] Potassium [Moles/Vol] 3.6 mmol/L Normal 3.5 - 5.3 [facility] Comment on above: Performed By: #### C MP #### [facility] [address] [place] [address] Protein [Mass/Vol] 5.2 g/dL Low 6.4 - 8.2 [facility] Comment on above: Performed By: #### C MP #### [facility] [address] [place] [address] Sodium [Moles/Vol] 141 mmol/L Normal 136 - 145 [facility] Comment on above: Performed By: #### C MP #### [facility] [address] [place] [address] Urea nitrogen [Mass/Vol] 30 mg/dL High 6 - 23 [facility] Comment on above: Performed By: #### C MP #### [facility] [address] [place] [address] MAGNESIUMon 03-28-2023 Magnesium [Mass/Vol] 1.96 mg/dL Normal 1.60 - 2.40 [facility] Comment on above: Performed By: #### C OAGS #### [facility] [address] [place] [address] PHOSPHORUSon 03-28-2023 Phosphate [Mass/Vol] 4.1 mg/dL Normal 2.5 - 4.9 [facility] Comment on above: Result Comment: The performance characteristics of phosphorus testing in heparinized plasma have been validated by the individual laboratory site where testing is performed. Testing on heparinized plasma is not approved by the FDA; however, such approval is not necessary. Performed By: #### C OAGS #### [facility] [address] [place] [address] ACUTE TOXICOLOGY PANEL, BLOO Don 03-27-2023 Acetaminophen [Mass/Vol] ug/mL Normal 10.0 - 30.0 [facility] Comment on above: Performed By: #### D RUBL #### [facility] [address] [place] [address] Ethanol [Mass/Vol] mg/dL Normal [facility] Comment on above: Result Comment: FOR MEDICAL USE ONLY. . REF VALUES <10 Performed By: #### D RUBL #### [facility] [address] [place] [address] SALICYLATE <3 Normal 4 - 20 [facility] Comment on above: Performed By: #### D RUBL #### [facility] [address] [place] [address] CBC AND DIFFERENTIALon 03-27 % AUTOMATED IMMATURE GRAN 1.5 % High 0.0 - 0.9 [facility] Comment on above: Result Comment: Mayra ture Granulocyte Count (IG) includes promyelocytes, myelocytes and metamyelocytes but does not include bands. Percent differential counts (%) should be interpreted in the context of the absolute cell counts (cells/L). Performed By: #### C BCDF #### [facility] [address] [place] [address] Basophils (Bld) [#/Vol] 0.03 10*3/uL Normal 0.00 - 0.10 [facility] Comment on above: Result Comment: Auto mated WBC differential has been confirmed by manual smear. Performed By: #### C BCDF #### [facility] [address] [place] [address] Basophils/100 WBC (Bld) 0.6 % Normal 0.0 - 2.0 [facility] Comment on above: Performed By: #### C BCDF #### [facility] [address] [place] [address] Eosinophils (Bld) [#/Vol] 0.02 10*3/uL Normal 0.00 - 0.40 [facility] Comment on above: Performed By: #### C BCDF #### [facility] [address] [place] [address] Eosinophils/100 WBC (Bld) 0.4 % Normal 0.0 - 6.0 [facility] Comment on above: Performed By: #### C BCDF #### [facility] [address] [place] [address] Erythrocyte distribution width (RBC) [Ratio] 14.9 % High 11.5 - 14.5 [facility] Comment on above: Performed By: #### C BCDF #### [facility] [address] [facility] [place] [address] Hematocrit (Bld) [Volume fraction] 35.6 % Low 36.0 - 46.0 [facility] Comment on above: Performed By: #### C BCDF #### [facility] [address] [facility] [place] [address] Hemoglobin (Bld) [Mass/Vol] 11.7 g/dL Low 12.0 - 16.0 [facility] Comment on above: Performed By: #### C BCDF #### [facility] [address] [place] [address] Lymphocytes (Bld) [#/Vol] 2.39 10*3/uL Normal 0.80 - 3.00 [facility] Comment on above: Performed By: #### C BCDF #### [facility] [id number] [place] [address] [place] [address] Lymphocytes/100 WBC (Bld) 50.1 % Normal 13.0 - 44.0 [facility] Comment on above: Performed By: #### C BCDF #### [facility] [address] [place] [address] [place] [address] MCHC (RBC) [Mass/Vol] 32.9 g/dL Normal 32.0 - 36.0 [facility] Comment on above: Performed By: #### C BCDF #### [facility] [address] [place] [address] MCV (RBC) [Entitic vol] 89 fL Normal 80 - 100 [facility] Comment on above: Performed By: #### C BCDF #### [facility] [address] [place] [address] Monocytes (Bld) [#/Vol] 0.60 10*3/uL Normal 0.05 - 0.80 [facility] Comment on above: Performed By: #### C BCDF #### [facility] [address] [place] [address] Monocytes/100 WBC (Bld) 12.6 % Normal 2.0 - 10.0 [facility] Comment on above: Performed By: #### C BCDF #### [facility] [address] [facility] [place] [address] Neutrophils (Bld) [#/Vol] 1.66 10*3/uL Normal 1.60 - 5.50 [facility] Comment on above: Performed By: #### C BCDF #### [facility] [address] [facility] [place] [address] Neutrophils/100 WBC (Bld) 34.8 % Normal 40.0 - 80.0 [facility] Comment on above: Performed By: #### C BCDF #### [facility] [address] [place] [address] Platelets (Bld) [#/Vol] 103 10*3/uL Low 150 - 450 [facility] Comment on above: Performed By: #### C BCDF #### [facility] [address] [place] [address] RBC 4.01 x10E12/L Normal 4.00 - 5.20 [facility] Comment on above: Performed By: #### C BCDF #### [facility] [address] [facility] [place] [address] WBC (Bld) [#/Vol] 4.8 10*3/uL Normal 4.4 - 11.3 [facility] Comment on above: Performed By: #### C BCDF #### [facility] [address] [place] [address] COAGULATION SCREENon 023 aPTT Coag (Bld) [Time] 25 s Low 26 - 39 [facility] Comment on above: Result Comment: THE APTT IS NO LONGER USED FOR MONITORING UNFRACTIONATED HEPARIN THERAPY. FOR MONITORING HEPARIN THERAPY, USE THE HEPARIN ASSAY. Performed By: #### C OAGS #### [facility] [address] [facility] [place] [address] PT Coag (PPP) [Time] 10.9 s Normal 9.8 - 13.4 [facility] Comment on above: Performed By: #### C OAGS #### [facility] [address] [place] [address] PT, INR 0.9 Normal 0.9 - 1.1 [facility] Comment on above: Performed By: #### C OAGS #### [facility] [address] [place] [address] COMPREHENSIVE PANELon 2022 Albumin [Mass/Vol] 2.7 g/dL Low 3.4 - 5.0 [facility] Comment on above: Performed By: #### C OAGS #### [facility] [address] [place] [address] ALP [Catalytic activity/Vol] 237 U/L High 33 - 136 [facility] Comment on above: Performed By: #### C OAGS #### [facility] [address] [place] [address] ALT [Catalytic activity/Vol] 46 U/L High 7 - 45 [facility] Comment on above: Result Comment: Елена ents treated with Sulfasalazine may generate falsely decreased results for ALT. Performed By: #### C OAGS #### [facility] [address] [place] [address] Anion gap [Moles/Vol] 14 mmol/L Normal 10 - 20 [facility] Comment on above: Performed By: #### C OAGS #### [facility] [address] [place] [address] AST [Catalytic activity/Vol] 82 U/L High 9 - 39 [facility] Comment on above: Performed By: #### C OAGS #### [facility] [address] [place] [address] Bilirubin [Mass/Vol] 1.6 mg/dL High 0.0 - 1.2 [facility] Comment on above: Performed By: #### C OAGS #### [facility] [address] [place] [address] Calcium [Mass/Vol] 8.5 mg/dL Low 8.6 - 10.3 [facility] Comment on above: Performed By: #### C OAGS #### [facility] [address] [facility] [place] [address] Chloride [Moles/Vol] 103 mmol/L Normal 98 - 107 [facility] Comment on above: Performed By: #### C OAGS #### [facility] [address] [place] [address] Creatinine [Mass/Vol] 0.73 mg/dL Normal 0.50 - 1.05 [facility] Comment on above: Performed By: #### C OAGS #### [facility] [address] [place] [address] GFR/1.73 sq M.predicted among non-blacks MDRD (S/P/Bld) [Vol rate/Area] 83 mL/min/{1.73_m2} Normal >90 [facility] Comment on above: Result Comment: CALC ULATIONS OF ESTIMATED GFR ARE PERFORMED USING THE 2020 CKD-EPI STUDY REFIT EQUATION WITHOUT THE RACE VARIABLE FOR THE IDMS-TRACEABLE CREATININE METHODS. https://jasn.asnjournals.org/content//ASN.40388977 88 Performed By: #### C OAGS #### [facility] [address] [place] [address] Glucose [Mass/Vol] 95 mg/dL Normal 74 - 99 [facility] Comment on above: Performed By: #### C OAGS #### [facility] [address] [place] [address] HCO3 (Bld) [Moles/Vol] 26 mmol/L Normal 21 - 32 [facility] Comment on above: Performed By: #### C OAGS #### [facility] [address] [place] [address] Potassium [Moles/Vol] 3.5 mmol/L Normal 3.5 - 5.3 [facility] Comment on above: Performed By: #### C OAGS #### [facility] [address] [facility] [place] [address] Protein [Mass/Vol] 6.1 g/dL Low 6.4 - 8.2 [facility] Comment on above: Performed By: #### C OAGS #### [facility] [address] [place] [address] Sodium [Moles/Vol] 139 mmol/L Normal 136 - 145 [facility] Comment on above: Performed By: #### C OAGS #### [facility] [address] [place] [address] Urea nitrogen [Mass/Vol] 42 mg/dL High 6 - 23 [facility] Comment on above: Performed By: #### C OAGS #### [facility] [address] [place] [address] HIV 1/2 ANTIGEN/ANTIBODY SCR EEN WITH REFLEX TO CONFIRMATIONon 03-27-2023 HIV 1/2 AG/AB SCREEN Non-Reactive Normal NONREACTIVE [facility] Comment on above: Result Comment: HIV Ag/Ab screen is performed using the [employer] HIV Ag/Ab Combo assay which detects the presence of HIV p24 antigen as well as antibodies to HIV-1 (Group M and O) and HIV-2. . No laboratory evidence of HIV infection. If acute HIV infection is suspected, consider testing for HIV RNA by PCR (viral load). Performed By: #### H IV #### [facility] [address] [place] [address] Lab Specimen Source Normal [facility] Comment on above: Performed By: #### H IV #### [facility] [address] [place] [id number] Performed By: #### S YPHR #### [facility] [address] [place] [address] MAGNESIUMon 03-27-2023 Magnesium [Mass/Vol] 2.17 mg/dL Normal 1.60 - 2.40 [facility] Comment on above: Performed By: #### C OAGS #### [facility] [address] [place] [address] NR MRI BRAIN WOon 03-27-2023 NR MRI BRAIN WO Patient Name: MIKO REECE STUDY: MRI BRAIN WO; 03/27/2023 4:35 pm INDICATION: Encephalopathy, Gait instability . COMPARISON: CT head dated 03/26/2023; ACCESSION NUMBER(S): [id number] ORDERING CLINICIAN: KEEGAN HERNANDEZ TECHNIQUE: Axial T2, FLAIR, DWI, gradient echo T2 and sagittal and coronal T1 weighted images of brain were acquired. FINDINGS: No diffusion restriction abnormality is present to suggest an acute infarct. No intracranial hemorrhage is identified. There is no mass effect or midline shift. [id number]-[id number] diffuse parenchymal volume loss is present without ventricular dilatation. Basal cisterns are patent. No abnormal extra-axial fluid collections are identified. Several small foci of hyperintense FLAIR and T2 signal are present in the periventricular and subcortical white matter bilateral cerebral hemispheres, a nonspecific finding likely representing sequela of microvascular disease. Visualized large arterial flow voids, including intracranial carotid and basilar artery are preserved. Bilateral mastoid effusions are present. Paranasal sinuses are unremarkable in appearance. IMPRESSION: 1. No evidence of new infarct or other acute intracranial abnormality. 2. Several small foci of hyperintense FLAIR and T2 signal present in the periventricular and subcortical white matter bilateral cerebral hemispheres are nonspecific finding, likely representing sequela of microvascular disease. 3. Bilateral mastoid effusions. Electronically signed by: LILLIE SNOWDEN MD Normal [facility] PHOSPHORUSon 03-27-2023 Phosphate [Mass/Vol] 4.0 mg/dL Normal 2.5 - 4.9 [facility] Comment on above: Result Comment: The performance characteristics of phosphorus testing in heparinized plasma have been validated by the individual laboratory site where testing is performed. Testing on heparinized plasma is not approved by the FDA; however, such approval is not necessary. Performed By: #### P HOS #### [facility] [address] [place] [address] Provider Note - ED Care Ingram sitionon 03-27-2023 Provider Note - ED Care Transition ED Care Transition: Chart Review: ED NOTES ED NOTES: 1999 -- received report from Dr Sena 5237 -- patient examined, chart reviewed RESULTS/VITAL SIGNS RESULTS: Recent Lab Results: I have reviewed these laboratory results: Ammonia, Plasma 26-Mar-2023 17:52:00 ResultValue Ammonia, Plasma 34 Glucose_POCT 26-Mar-2023 15:04:00 ResultValue Glucose-POCT 111 H Complete Blood Count + Differential 26-Mar-2023 14:30:00 ResultValue White Blood Cell Count 5.2 Red Blood Cell Count 3.98 L HGB 12.2 HCT 35.5 L MCV 89 MCHC 34.4 PLT 82 L RDW-CV 14.7 H Neutrophil % 51.0 Immature Granulocytes % 1.0 H Lymphocyte % 36.6 Monocyte % 11.0 Basophil % 0.4 Neutrophil Count 2.64 Lymphocyte Count 1.89 Monocyte Count 0.57 Basophil Count 0.02 Comprehensive Metabolic Panel 26-Mar-2023 14:30:00 ResultValue Glucose, Serum 112 H NA 136 K 3.6 CL 101 Bicarbonate, Serum 26 Anion Gap, Serum 13 BUN 47 H CREAT 1.01 GFR Female 56 A Calcium, Serum 8.7 ALB 2.8 L ALKP 203 H T Pro 6.2 L T Bili 2.3 H Alanine Aminotransferase, Serum 40 Aspartate Transaminase, Serum 78 H Urinalysis with Culture if Indicated 26-Mar-2023 14:27:00 ResultValue Color, Urine ESPERANZA Reference Range: STRAW,YELLOW Appearance, Urine HAZY Specific [place], Urine 1.020 pH, Urine 5.0 Protein, Urine 30(1+) A Glucose, Urine NEGATIVE Blood, Urine NEGATIVE Ketones, Urine 5(Trace) A Bilirubin, Urine NEGATIVE Urobilinogen, Urine 4.0 H Nitrite, Urine NEGATIVE Leukocyte Esterase, Urine NEGATIVE Urinalysis, Microscopic 26-Mar-2023 14:27:00 ResultValue White Cells 0-5 Red Blood Cells 0-5 Epithelial Cells, Squamous 3+ Radiology Results: Impression: 1. No evidence of acute cardiopulmonary process. Xray Chest 1 View [Mar 26 2023 4:15PM] Impression: No acute findings. CT Head without Contrast [Mar 26 2023 4:14PM] VITAL SIGNS: T PRBP SpO2O2(LPM) %FiO2 Method 27-Mar-2023 01:30:[id number] 93 26-Mar-2023 23:45:00-1247434/64 94 26-Mar-2023 21:45:00-3852311/58 90 26-Mar-2023 19:45:00-6274877/50 95 26-Mar-2023 17:45:00-5666800/51 95 room air, no respiratory support 26-Mar-2023 17:13:00-9995146/45 97 room air, no respiratory support 26-Mar-2023 16:15:00-9598749/62 96 room air, no respiratory support 26-Mar-2023 14:25:00-36.45511040/54 95 room air, no respiratory support MEDICAL DECISION MAKING/ED COURSE MDM/ED COURSE: S: Patient had presented to the emergency department for increasing confusion and generalized weakness. Being unable to safely ambulate even with a walker; therefore, transfer has been arranged by Dr. Sena. She was signed out to me pending bed placement. Patient and are notified that she has been accepted at [facility] and there is a bed available, but we are waiting for transport with ETA of 04 07. Patient is alert, cooperative, denying any pain. O: Rate and rhythm. Lungs clear to auscultation. Skin warm, pink, dry. Pleasantly confused, conversational. Moves all extremities. Following commands. A/P: Continue patient under safe supervision until transport arrives. Patient has been denying any needs at this time. CLINICAL IMPRESSION Diagnosis/Annotation: ED Dx Name:Confusion Code:R41.0 Name:Gait disturbance Code:R26.9 Disposition: transferred ATTESTATION CRITICAL CARE TIME Is this a critically ill patient: no Electronic Signatures: Debra Aviles) (Signed 27-Mar-2023 02:09) Authored: ED Notes, Results/Vital Signs, MDM/ED Course, Clinical Impression, Attestation, Chart Review, Scores Last Updated: 27-Mar-2023 02:09 by Debra Aviles) Normal [facility] RED CELL MORPHOLOGYon 2022 RBC morphology finding Nom (Bld) SEE COMMENT Normal [facility] Comment on above: Result Comment: NO S IGNIFICANT RBC ABNORMALITIES SEEN ON SMEAR REVIEW. Performed By: #### M ORP2 #### [facility] [address] [place] [address] SYPHILIS SCREENING WITH REFL EXon 03-27-2023 SYPHILIS TOTAL AB Non-Reactive Normal NONREACTIVE [facility] Comment on above: Result Comment: No s erologic evidence of syphilis infection. If recent exposure is suspected, repeat syphilis testing is recommended in 2 to 4 weeks. Performed By: #### S YPHR #### [facility] [address] [place] [address] VITAMIN B12on 03-27-2023 Cobalamin (Vitamin B12) [Mass/Vol] 1628 pg/mL High 211 - 911 [facility] Comment on above: Performed By: #### V TB12 #### [facility] [address] [place] [address] VITAMIN B12 Canceled Normal [facility] Comment on above: Order Comment: TEST VITAMIN B12 WAS CANCELLED, 03/27/2023 14:06 added to other order. Performed By: #### C OAGS #### [facility] [address] [place] [address] VITAMIN D, 25-HYDROXYon 03-09 VITAMIN D, 25-HYDROXY 90 ng/mL Normal [facility] Comment on above: Result Comment: . DEFICIENCY: < 20 NG/ML INSUFFICIENCY: 20-29 NG/ML SUFFICIENCY: 30-100 NG/ML THIS ASSAY ACCURATELY QUANTIFIES THE SUM OF VITAMIN D3, 25-HYDROXY AND VIT D2,25-HYDROXY. Performed By: #### V TDOH #### [facility] [address] [place] [address] AMMONIAon 03-26-2023 Ammonia (P) [Moles/Vol] 34 umol/L Normal [facility] Comment on above: Result Comment: . REFERENCE VALUES DAY 1 to DAY 7 <110 DAY 8 to DAY 14 < 90 DAY 15 to ADULT 16-53 Performed By: #### B LDC #### [facility] [address] [place] [address] BLOOD CULTURE, BACTERIALon 0 03-26-2023 BLOOD CULTURE, BACTERIAL LEFT HAND PATIENT: MIKO REECE LOCATION: [address]#: [id number] : 41 AGE: SEX: F ORDERED BY: LAURENT SENA SOURCE: Blood COLLECTED: 03/26/23 15:46 ANTIBIOTICS AT [place].: RECEIVED : 03/27/23 09:14 SITE: PERIPHERAL R E S U L T S BLOOD CULTURE, BACTERIAL FINAL 03/31/23 09:42 No Growth at 1 days No Growth at 2 days No Growth at 3 days NO GROWTH at 4 days - FINAL REPORT Normal [facility] Comment on above: Performed By: #### B LDC #### [facility] [address] [place] [address] BLOOD CULTURE, BACTERIAL RIGHT AC PATIENT: MIKO REECE LOCATION: [place] [address] BILL#: [id number] : 41 AGE: SEX: F ORDERED BY: LAURENT SENA SOURCE: Blood COLLECTED: 03/26/23 15:40 ANTIBIOTICS AT [place].: RECEIVED : 03/27/23 09:16 SITE: PERIPHERAL R E S U L T S BLOOD CULTURE, BACTERIAL FINAL 03/31/23 09:42 No Growth at 1 days No Growth at 2 days No Growth at 3 days NO GROWTH at 4 days - FINAL REPORT Normal [facility] Comment on above: Performed By: #### B LDC #### [facility] [address] [place] [address] CBC AND DIFFERENTIALon 03-26 % AUTOMATED IMMATURE GRAN 1.0 % High 0.0 - 0.9 [facility] Comment on above: Result Comment: Mayra ture Granulocyte Count (IG) includes promyelocytes, myelocytes and metamyelocytes but does not include bands. Percent differential counts (%) should be interpreted in the context of the absolute cell counts (cells/L). Performed By: #### C BCDF ####[facility] [place] [address] Basophils (Bld) [#/Vol] 0.02 10*3/uL Normal 0.00 - 0.10 [facility] Comment on above: Performed By: #### C BCDF ####[facility] [place] [address] Basophils/100 WBC (Bld) 0.4 % Normal 0.0 - 2.0 [facility] Comment on above: Performed By: #### C BCDF ####[facility] [place] [address] Erythrocyte distribution width (RBC) [Ratio] 14.7 % High 11.5 - 14.5 [facility] Comment on above: Performed By: #### C BCDF ####[facility] [place] [address] Hematocrit (Bld) [Volume fraction] 35.5 % Low 36.0 - 46.0 [facility] Comment on above: Performed By: #### C BCDF ####[facility] [place] [address] Hemoglobin (Bld) [Mass/Vol] 12.2 g/dL Normal 12.0 - 16.0 [facility] Comment on above: Performed By: #### C BCDF ####[facility] [place] [address] Lymphocytes (Bld) [#/Vol] 1.89 10*3/uL Normal 0.80 - 3.00 [facility] Comment on above: Performed By: #### C BCDF ####[facility] [place] [address] Lymphocytes/100 WBC (Bld) 36.6 % Normal 13.0 - 44.0 [facility] Comment on above: Performed By: #### C BCDF ####[facility] [place] [address] MCHC (RBC) [Mass/Vol] 34.4 g/dL Normal 32.0 - 36.0 [facility] Comment on above: Performed By: #### C BCDF ####[facility] [place] [address] MCV (RBC) [Entitic vol] 89 fL Normal 80 - 100 [facility] Comment on above: Performed By: #### C BCDF ####[facility] [place] [address] Monocytes (Bld) [#/Vol] 0.57 10*3/uL Normal 0.05 - 0.80 [facility] Comment on above: Performed By: #### C BCDF ####[facility] [place] [address] Monocytes/100 WBC (Bld) 11.0 % Normal 2.0 - 10.0 [facility] Comment on above: Performed By: #### C BCDF ####[facility] [place] [address] Neutrophils (Bld) [#/Vol] 2.64 10*3/uL Normal 1.60 - 5.50 [facility] Comment on above: Performed By: #### C BCDF ####[facility] [place] [address] Neutrophils/100 WBC (Bld) 51.0 % Normal 40.0 - 80.0 [facility] Comment on above: Performed By: #### C BCDF ####[facility] [place] [address] Platelets (Bld) [#/Vol] 82 10*3/uL Low 150 - 450 [facility] Comment on above: Performed By: #### C BCDF ####[facility] [place] [address] RBC 3.98 x10E12/L Low 4.00 - 5.20 [facility] Comment on above: Performed By: #### C BCDF ####[facility] [place] [address] WBC (Bld) [#/Vol] 5.2 10*3/uL Normal 4.4 - 11.3 [facility] Comment on above: Performed By: #### C BCDF ####[facility] [place] [address] COMPREHENSIVE PANELon 2022 Albumin [Mass/Vol] 2.8 g/dL Low 3.4 - 5.0 [facility] Comment on above: Performed By: #### B LDC #### [facility] [address] [place] [address] ALP [Catalytic activity/Vol] 203 U/L High 33 - 136 [facility] Comment on above: Performed By: #### B LDC #### [facility] [address] [place] [address] ALT [Catalytic activity/Vol] 40 U/L Normal 7 - 45 [facility] Comment on above: Result Comment: Елена ents treated with Sulfasalazine may generate falsely decreased results for ALT. Performed By: #### B LDC #### [facility] [address] [place] [address] Anion gap [Moles/Vol] 13 mmol/L Normal 10 - 20 [facility] Comment on above: Performed By: #### B LDC #### [facility] [address] [place] [address] AST [Catalytic activity/Vol] 78 U/L High 9 - 39 [facility] Comment on above: Performed By: #### B LDC #### [facility] [address] [place] [address] Bilirubin [Mass/Vol] 2.3 mg/dL High 0.0 - 1.2 [facility] Comment on above: Performed By: #### B LDC #### [facility] [address] [place] [address] Calcium [Mass/Vol] 8.7 mg/dL Normal 8.6 - 10.3 [facility] Comment on above: Performed By: #### B LDC #### [facility] [address] [place] [address] Chloride [Moles/Vol] 101 mmol/L Normal 98 - 107 [facility] Comment on above: Performed By: #### B LDC #### [facility] [address] [place] [address] Creatinine [Mass/Vol] 1.01 mg/dL Normal 0.50 - 1.05 [facility] Comment on above: Performed By: #### B LDC #### [facility] [address] [place] [address] GFR/1.73 sq M.predicted among non-blacks MDRD (S/P/Bld) [Vol rate/Area] 56 mL/min/{1.73_m2} Abnormal >90 [facility] Comment on above: Result Comment: CALC ULATIONS OF ESTIMATED GFR ARE PERFORMED USING THE 2020 CKD-EPI STUDY REFIT EQUATION WITHOUT THE RACE VARIABLE FOR THE IDMS-TRACEABLE CREATININE METHODS. https://jasn.asnjournals.org/content/early/ASN.08570586 88 Performed By: #### B LDC #### [facility] [address] [place] [address] Glucose [Mass/Vol] 112 mg/dL High 74 - 99 [facility] Comment on above: Performed By: #### B LDC #### [facility] [address] [place] [address] HCO3 (Bld) [Moles/Vol] 26 mmol/L Normal 21 - 32 [facility] Comment on above: Performed By: #### B LDC #### [facility] [address] [place] [address] Potassium [Moles/Vol] 3.6 mmol/L Normal 3.5 - 5.3 [facility] Comment on above: Performed By: #### B LDC #### [facility] [address] [place] [address] Protein [Mass/Vol] 6.2 g/dL Low 6.4 - 8.2 [facility] Comment on above: Performed By: #### B LDC #### [facility] [address] [place] [address] Sodium [Moles/Vol] 136 mmol/L Normal 136 - 145 [facility] Comment on above: Performed By: #### B LDC #### [facility] [address] [place] [address] Urea nitrogen [Mass/Vol] 47 mg/dL High 6 - 23 [facility] Comment on above: Performed By: #### B LDC #### [facility] [address] [place] [address] GLUCOSE-POCTon 03-26-2023 Glucose [Mass/Vol] 111 mg/dL High 74 - 99 [facility] Comment on above: Performed By: #### B LDC #### [facility] [address] [place] [address] Provider Note - ED v3on 03-09 Provider Note - ED v3 Provider Note: Results/Vital Signs: Pediatric Clinical Scoring (VERONICA) is no recent VERONICA charted on this account Chart Review: ED NOTES ED NOTES: CC: Confusion HPI: Patient was discharged home last after being treated for urinary tract infection and altered mental status. She was doing well until Monday when she began to sleep more and become less responsive. Today she was hard to arouse and get out of bed due to her lack of responsiveness. She is more confused than her baseline as well. Here in the ER she is awake alert and pleasantly confused. She denies any headache chest pain shortness of breath or abdominal pain. She has been taking cefuroxime For recent urine tract infection treated for 1 day in the hospital last week. PMH: Hypertension, arthritis, cervical atypia post conization procedure, hypertension, tonsillectomy, recent urine tract infection Social History Patient lives with her ROS: Except as noted above review of systems is negative and deemed to be noncontributory to today's episode of care. 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 Other complaints include: Patient to ED via WC from home, DCd from Med-Surg on for UTI. Still working on finishing prescribed cefuroxime. states that she has been confused and memory problems have not resolved. (1). Triage Information: Most recent Vital Sign Value Date Temp (F): 97.4 03-26-2023 14:25 Temp (C): 36.3 03-26-2023 14:25 Heart Rate (beats/min): 90 03-26-2023 14:25 Respirations (breaths/min): 16 03-26-2023 14:25 SpO2 (%): 95 03-26-2023 14:25 BP Systolic (mm Hg): 146 03-26-2023 14:25 BP Diastolic (mm Hg): 54 03-26-2023 14:25 PAST MEDICAL HISTORY ALLERGIES/INTOLERANCES: Allergy Allergen: penicillin Type: Drug Reaction: Unknown HEALTH HISTORY: No documented data. OUTPATIENT MEDICATIONS: Home Medications Review Status for Reconciliation: Incomplete Med Status: Incomplete Medication History Drug Name: amlodipine 5 mg tablet Instructions: 1 tab(s) orally once a day Drug Name: ibuprofen 800 mg oral tablet Instructions: 1 tab(s) orally 3 times a day, As Needed Drug Name: Tylenol 500 mg oral tablet Instructions: 2 tab(s) orally 3 times a day, As Needed Drug Name: ergocalciferol 1.25 mg (50,000 intl units) oral capsule Instructions: 1 cap(s) orally once a week Drug Name: cefuroxime 500 mg oral tablet Instructions: 1 tab(s) orally 2 times a day SIGNIFICANT EVENTS: Clinical Events Description:Surgical Procedure Additional Notes:Cervical Conization Leep Past Medical History Description:HTN Past Surgical History Description:Tonsillectomy Additional Notes:age 10 Description:Tubal ligation Additional Notes:1980s Description:Left foot great toe joint replacement Description:Right knee arthroscopy REVIEW OF SYSTEMS All other systems reviewed and are negative PHYSICAL EXAM CONSTITUTIONAL: Well appearing, well nourished, awake, alert, oriented to person, place, time/situation and in no apparent distress. HENMT: Airway patent, ears with clear tympanic membranes bilaterally. Nasal mucosa clear. Mouth with normal mucosa. Throat has no vesicles, no oropharyngeal exudates and uvula is midline. Face with no lymph node enlargement. EYES: Clear bilaterally, pupils equal, round and reactive to light. CARDIOVASCULAR: Normal rate, regular rhythm. Heart sounds S1, S2. No murmurs, rubs or gallops. PMI non-displaced. RESPIRATORY: Breath sounds clear and equal bilaterally. GASTROINTESTINAL: Abdomen soft, non-distended, no rebound, no guarding. Bowel sounds normal in all 4 quadrants. MUSCULOSKELETAL: Spine appears normal, range of motion is not limited, no muscle or joint tenderness. NEUROLOGICAL: Alert and oriented, no focal deficits, no motor or sensory deficits. SKIN: Skin normal color for race, warm, dry and intact. No evidence of trauma. PSYCHIATRIC: Alert and pleasantly confused. normal mood and affect. No apparent risk to self or others. CRITICAL CARE RESULTS: Recent Lab Results: I have reviewed these laboratory results: Ammonia, Plasma 26-Mar-2023 17:52:00 ResultValue Ammonia, Plasma 34 Glucose_POCT 26-Mar-2023 15:04:00 ResultValue Glucose-POCT 111 H Complete Blood Count + Differential 26-Mar-2023 14:30:00 ResultValue White Blood Cell Count 5.2 Red Blood Cell Count 3.98 L HGB 12.2 HCT 35.5 L MCV 89 MCHC 34.4 PLT 82 L RDW-CV 14.7 H Neutrophil % 51.0 Immature Granulocytes % 1.0 H Lymphocyte % 36.6 Monocyte % 11.0 Basophil % 0.4 Neutrophil Count 2.64 Lym (more content not included)... Normal [facility] Risk Screen - Adult Emergenc yon 03-26-2023 Risk Screen - Adult Emergency Preferred Language: Preferred Language: Preferred Language for Discussing Health Care (patient/designee)Persian Patient Preferred Pharmacy: Patient Preferred Pharmacy Statement: I have reviewed and updated the patient's preferred pharmacy selection for today's visit. Advanced Directives: Advance Directive/DNRno Family Violence Adult: Abuse Screen: Are you or have you been threatened or abused physically, emotionally, or sexually by anyoneno Learning Assessment (Patient): Learning Assessment (Patient): Patient is Able to be Assessed for Learningyes Factors Influencing Readiness to Learnacuteness of illness Factors that Impact Ability to Learnnone Devices/Methods Used to Communicatenone Learning Preferencesskill demonstration Cultural Considerationsnone Developmental Considerationsnone Zoroastrian Considerationsnone Learning Assessment (Other Learner): Learning Assessment (Other Learner): Other learner availableno Pressure Injury/TB/Substance: Pressure Injury: Do you have a coughno Smoking Statusunable to assess Admission Risk Screen: Significant IndicatorsComplete CAGE: CAGE: Is this an injured patient at a Trauma Center ([facility]/[place] no Electronic Signatures: Isis Linn (RN) (Signed 26-Mar-2023 14:32) Authored: Preferred Language, Patient Preferred Pharmacy, Advanced Directives, Family Violence Adult, Learning Assessment (Patient), Learning Assessment (Other Learner), Pressure Injury/TB/Substance, Pressure Injury, CAGE Last Updated: 26-Mar-2023 14:32 by Isis Linn (RN) Normal [facility] Triage - EDon 03-26-2023 Triage - ED Quick Triage: The patient and/or guardian verbally acknowledges placement for services into the following (when Urgent Care Service hours are operating):emergency department Chart Review: ARRIVAL INFORMATION Mode of Arrival: private vehicle CHIEF COMPLAINT MIKO REECE is a Female patient with a chief complaint of urinary tract infection. Other Complaints: Patient to ED via WC from home, DCd from Med-Surg on for UTI. Still working on finishing prescribed cefuroxime. states that she has been confused and memory problems have not resolved. Triage Date/Time: 26-Mar-2023 14:25 DESIREE: 3 Pain Rating (0-10): 3 = Mild Vital Signs: Temperature: 97.4F ( 36.3C) taken temporal Blood Pressure: 146/54 Mean: Heart Rate: 90 Respiratory Rate: 16 Pulse Oximetry: 95% on room air, no respiratory support. Height: 5 feet 2.00 inches. 157.4 CM Weight: 123.4 pounds. Calculated 56.0 kg. Calculated BMI (kg/m2): 22.603 Calculated BSA (m2) 1.56 Allergies: yes Patient has homicidal thoughts: no Risk Screens Suicide Risk Screen In the Past Month: Have you wished you were or wished you could go to sleep and not wake up no In the Past Month: Have you had any actual thoughts of killing yourself no In Your Lifetime: Have you ever done anything, started to do anything, or prepared to do anything to end your life no Ken Fall Scale Screening Has the patient fallen before (or is the patient in the ED as a result of a fall) has not had a fall Does the patient have an impaired gait does not have impaired gait Is the patient cognitively impaired cognitively impaired Ken Fall Scale History of falling (immediate or previous) yes (25) Secondary Diagnosis yes (15) Intravenous Therapy/ Heparin/Saline Lock yes (20) Gait/Transferring impaired (20) Ambulatory Aids crutches/walker/cane (15) Mental Status oriented to own ability (0) Kne Fall Risk Score: 95 Interventions: Ken Fall Interventions: HIGH INTERVENTIONS *Low and Moderate Interventions Plus: * supervised toileting at all times TRAVEL HISTORY Travel History Coronavirus Screening: no exposure or symptoms Travel Exposure History: NO travel to International locations in the past 30 days PAIN Pain Scale Used: KIKA Pain Rating (0-10): 3 = Mild Past Medical History: Past Medical History Reviewedyes Electronic Signatures: Farida Trimble (OLGA) (Signed 26-Mar-2023 14:33) Authored: Quick Triage, Risk Screens, Pain, Travel History, Chart Review, Scores, Past Medical History Last Updated: 26-Mar-2023 14:33 by Farida Trimble (OLGA) Normal [facility] UA MICROSCOPICon 03-26-2023 RBC 0-5 Normal 0-5 [facility] Comment on above: Performed By: #### B [facility] #### [facility] [address] [place] [address] SQUAMOUS EPITH. CELLS 3+ /HPF Normal [facility] Comment on above: Performed By: #### B LD #### [facility] [address] [place] [address] WBC 0-5 Normal 0-5 [facility] Comment on above: Performed By: #### B LD #### [facility] [address] [place] [address] URINALYSIS WITH CULTURE IF I NDICATEDon 03-26-2023 Appearance (U) HAZY Normal CLEAR [facility] Comment on above: Performed By: #### U ARFX #### [facility] [address] [place] [address] Bilirubin Ql (U) Negative Normal NEGATIVE [facility] Comment on above: Performed By: #### U ARFX #### [facility] [address] [place] [address] Color (U) ESPERANZA Normal STRAW,YELLOW [facility] Comment on above: Performed By: #### U ARFX #### [facility] [address] [place] [address] Glucose Ql (U) Negative Normal NEGATIVE [facility] Comment on above: Performed By: #### U ARFX #### [facility] [address] [place] [address] Hemoglobin Ql (U) Negative Normal NEGATIVE [facility] Comment on above: Performed By: #### U ARFX #### [facility] [address] [place] [address] Ketones Ql (U) 5(Trace) Abnormal NEGATIVE [facility] Comment on above: Performed By: #### U ARFX #### [facility] [address] [place] [address] Leukocyte esterase Test strip Ql (U) Negative Normal NEGATIVE [facility] Comment on above: Performed By: #### U ARFX #### [facility] [address] [place] [address] Nitrite Ql (U) Negative Normal NEGATIVE [facility] Comment on above: Performed By: #### U ARFX #### [facility] [address] [place] [address] pH (U) 5.0 [pH] Normal 5.0 - 8.0 [facility] Comment on above: Performed By: #### U ARFX #### [facility] [address] [place] [address] Protein Ql (U) 30(1+) Abnormal NEGATIVE [facility] Comment on above: Performed By: #### U ARFX #### [facility] [address] [place] [address] Specific gravity (U) [Rel density] 1.020 Normal 1.005 - 1.035 [facility] Comment on above: Performed By: #### U ARFX #### [address] [address] Urobilinogen (U) [Mass/Vol] 4.0 mg/dL High 0.0 - 1.9 [facility] Comment on above: Result Comment: SOME PIGMENTS AND MEDICATIONS MAY CAUSE A FALSE POSITIVE UROBILINOGEN Performed By: #### U ARFX #### [facility] [address] [place] [address] BASIC METABOLIC PANELon 03-09 Anion gap [Moles/Vol] 11 mmol/L Normal 10 - 20 [facility] Comment on above: Performed By: #### B LDC #### [facility] [address] [place] [address] Calcium [Mass/Vol] 7.9 mg/dL Low 8.6 - 10.3 [facility] Comment on above: Performed By: #### B LDC #### [facility] [address] [place] [address] Chloride [Moles/Vol] 100 mmol/L Normal 98 - 107 [facility] Comment on above: Performed By: #### B LDC #### [facility] [address] [place] [address] Creatinine [Mass/Vol] 0.86 mg/dL Normal 0.50 - 1.05 [facility] Comment on above: Performed By: #### B LDC #### [facility] [address] [place] [address] GFR/1.73 sq M.predicted among non-blacks MDRD (S/P/Bld) [Vol rate/Area] 68 mL/min/{1.73_m2} Normal >90 [facility] Comment on above: Result Comment: CALC ULATIONS OF ESTIMATED GFR ARE PERFORMED USING THE 2020 CKD-EPI STUDY REFIT EQUATION WITHOUT THE RACE VARIABLE FOR THE IDMS-TRACEABLE CREATININE METHODS. https://jasn.asnjournals.org/content/early//ASN.97756403 88 Performed By: #### B LD #### [facility] [address] [place] [address] Glucose [Mass/Vol] 78 mg/dL Normal 74 - 99 [facility] Comment on above: Performed By: #### B LDC #### [facility] [address] [place] [address] HCO3 (Bld) [Moles/Vol] 25 mmol/L Normal 21 - 32 [facility] Comment on above: Performed By: #### B LDC #### [facility] [address] [place] [address] Potassium [Moles/Vol] 3.4 mmol/L Low 3.5 - 5.3 [facility] Comment on above: Performed By: #### B LDC #### [facility] [address] [place] [address] Sodium [Moles/Vol] 133 mmol/L Low 136 - 145 [facility] Comment on above: Performed By: #### B LDC #### [facility] [address] [place] [address] Urea nitrogen [Mass/Vol] 29 mg/dL High 6 - 23 [facility] Comment on above: Performed By: #### B LDC #### [facility] [address] [place] [address] CBCon 03-23-2023 Erythrocyte distribution width (RBC) [Ratio] 14.0 % Normal 11.5 - 14.5 [facility] Comment on above: Performed By: #### B LDC #### [facility] [address] [place] [address] Hematocrit (Bld) [Volume fraction] 31.1 % Low 36.0 - 46.0 [facility] Comment on above: Performed By: #### B LDC #### [facility] [address] [place] [address] Hemoglobin (Bld) [Mass/Vol] 10.6 g/dL Low 12.0 - 16.0 [facility] Comment on above: Performed By: #### B LDC #### [facility] [address] [place] [address] MCHC (RBC) [Mass/Vol] 34.1 g/dL Normal 32.0 - 36.0 [facility] Comment on above: Performed By: #### B LDC #### [facility] [address] [place] [address] MCV (RBC) [Entitic vol] 92 fL Normal 80 - 100 [facility] Comment on above: Performed By: #### B LDC #### [facility] [address] [place] [address] Platelets (Bld) [#/Vol] 71 10*3/uL Low 150 - 450 [facility] Comment on above: Result Comment: Plat elet count verified by smear review. Performed By: #### B LDC #### [facility] [address] [place] [address] RBC 3.39 x10E12/L Low 4.00 - 5.20 [facility] Comment on above: Performed By: #### B LDC #### [facility] [address] [place] [address] WBC (Bld) [#/Vol] 9.0 10*3/uL Normal 4.4 - 11.3 [facility] Comment on above: Performed By: #### B LDC #### [facility] [address] [place] [address] EMR ADDONon 03-23-2023 ADDON CONFIRMATION REQUEST REC'D Normal [facility] Comment on above: Performed By: #### B LDC #### [facility] [address] [place] [address] FERRITINon 03-23-2023 FERRITIN 1311 ug/L High 8 - 150 [facility] Comment on above: Performed By: #### B LDC #### [facility] [address] [place] [address] IRON + TIBCon 03-23-2023 % SATURATION NOT CALC. Normal 25 - 45 [facility] Comment on above: Result Comment: One or more analytes used in this calculation is outside of the analytical measurement range. Calculation cannot be performed. Performed By: #### I ALICE ####[facility] [place] [address] Iron [Mass/Vol] ug/dL Abnormal 35 - 150 [facility] Comment on above: Performed By: #### I ALICE ####[facility] [place] [address] TIBC <154 Abnormal 240 - 445 [facility] Comment on above: Result Comment: Inte rpret results with caution. One or more analytes used in this calculation is outside of the analytical measurement range. Performed By: #### I ALICE ####[facility] [place] [address] Order Reconciliationon 03-23 Order Reconciliation Page 1 Discharge Reconciliation Document Reconciliation Type: Discharge requested on behalf of Janee Spivey (Physician) done by Janee Spivey) Discharge - Reconciliation: 23-Mar-2023 13:29 by: Janee Spivey) Home Medications EnteredHOME MEDICATIONS AT DISCHARGE DateReconciliation Comment/ Additional Information amlodipine 5 mg tablet 1 tab(s) orally once a day 11-Mar-2011 08:05 amlodipine 5 mg tablet 1 tab(s) orally once a day 11-Mar-2011 08:05 amlodipine 5 mg tablet is continued as amlodipine 5 mg tablet ergocalciferol 1.25 mg (50,000 intl units) oral capsule 1 cap(s) orally once a week 21-Mar-2023 23:43 ergocalciferol 1.25 mg (50,000 intl units) oral capsule 1 cap(s) orally once a week 21-Mar-2023 23:43 ergocalciferol 1.25 mg (50,000 intl units) oral capsule is continued as ergocalciferol 1.25 mg (50,000 intl units) oral capsule ibuprofen 800 mg oral tablet 1 tab(s) orally 3 times a day, As Needed 21-Mar-2023 23:10 ibuprofen 800 mg oral tablet 1 tab(s) orally 3 times a day, As Needed 21-Mar-2023 23:10 ibuprofen 800 mg oral tablet is continued as ibuprofen 800 mg oral tablet Tylenol 500 mg oral tablet 2 tab(s) orally 3 times a day, As Needed 21-Mar-2023 23:10 Tylenol 500 mg oral tablet 2 tab(s) orally 3 times a day, As Needed 21-Mar-2023 23:10 Tylenol 500 mg oral tablet is continued as Tylenol 500 mg oral tablet Current OrdersDateHOME MEDICATIONS AT DISCHARGE DateReconciliation Comment/ Additional Information Acetaminophen Tablet (TYLENOL)DOSE = 650 mg Oral Every 8 HoursClinician Notes: ALTERNATING WITH IBUPROFEN 22-Mar-2023 16:26 Acetaminophen is not required amLODIPine (NORVASC) TabletDOSE = 5 mg Oral Daily 22-Mar-2023 03:25 amLODIPine (NORVASC) is not required cefTRIAXone 1 gram/ Dextrose 5% IVPB Premixed Soln 50 mL (ROCEPHIN)Every 24 HoursRecommended Infusion Time: 30 minute(s) 22-Mar-2023 03:31 cefTRIAXone 1 gram/ Dextrose 5% IVPB Premixed Soln 50 mL is not required Enoxaparin SubCutaneous (LOVENOX)DOSE = 40 mg SubCutaneous Every 24 Hours 22-Mar-2023 03:31 Enoxaparin SubCutaneous is not required Ibuprofen Tablet (ADVIL, MOTRIN)DOSE = 600 mg Oral Every 8 HoursClinician Notes: ALTERNATING WITH TYLENOL 22-Mar-2023 16:25 Ibuprofen is not required Ondansetron Injectable (ZOFRAN)DOSE = 4 mg IntraVenous Push Every 4 Hours, PRN Nausea and/or Vomiting 22-Mar-2023 03:31 Ondansetron Injectable is not required Sodium Chloride 0.9% Infusion IV Bag Volume = 1,000 mL Run at: 75 mL/hr IntraVenous 22-Mar-2023 03:31 Sodium Chloride 0.9% Infusion is not required Sodium Chloride 0.9% Injectable Flush via Peripheral LineVolume = 10 mL IntraVenous Flush Every 8 Hours and as Needed 22-Mar-2023 03:31 Sodium Chloride 0.9% Injectable Flush is not required Home Medications Added During Discharge Reconciliation cefuroxime 500 mg oral tablet 1 tab(s) orally 2 times a day All Active Home Medications at time of Discharge Reconciliation: 23-Mar-2023 13:29 amlodipine 5 mg tablet 1 tab(s) orally once a day cefuroxime 500 mg oral tablet 1 tab(s) orally 2 times a day ergocalciferol 1.25 mg (50,000 intl units) oral capsule 1 cap(s) orally once a week ibuprofen 800 mg oral tablet 1 tab(s) orally 3 times a day, As Needed Tylenol 500 mg oral tablet 2 tab(s) orally 3 times a day, As Needed Normal [facility] RED CELL MORPHOLOGYon 2022 RBC morphology finding Nom (Bld) SEE COMMENT Normal [facility] Comment on above: Result Comment: NO S IGNIFICANT RBC ABNORMALITIES SEEN ON SMEAR REVIEW. Performed By: #### M ORP2 #### [facility] [address] [place] [address] Rehab Note-individual therap yon 03-23-2023 Rehab Note-individual therapy Rehab: Info: Disciplinephysical therapist Mode of Treatmentphysical therapy; individual therapy Time IN10:32 Time OUT10:56 Total Treatment [id number] Patient in ... at end of sessionchair; alarm on; tray table in front of pt, all needs within reach Communicated with ... at end of sessionbedside nurse Patient Effortgood Symptoms Noted During/After Treatmentnone Treatment Considerations/CommentsCha ir alarm Fall precautions Confusion UA shows 1+ bacteria with +white cells, culture pending Patient Response to TreatmentPt in good spirits this AM. Continues to present with intermittent confusion and requires increased time to respond with questions as well as short, simple cues. Pt with difficulty multitasking as she needed to stop walking in order to answer therapists questions regarding pain. Pt also demonstrated decreased safety awareness around stairs, as therapist instructed pt to ascend/descend 2 steps, but pt continued down other side of staircase towards window despite cueing. Pt also began ambulating towards chair without ww impulsively, with mildly unsteady gait and CGA. Overall, pt functioning at supervision level but confusion remains. Recommend low intensity PT needs at d/c to address home safety. Patient/Family/Caregiver Comments/ObservationsPt cleared for PT by RN. Pt reports feeling much better today. I think they said I can go home tonight. They don't think I'm nuts anymore. Pt reports seeing Peter in outpatient for back pain and was scheduled for reassessment on day of admission. Reports having RLE pain. Initially describes symptoms from groin, thigh, knee (previous TKA) to anterior lower leg. Upon ambulation, pt primarily c/o R thigh and knee pain, but is easily distracted and unable to clarify symptoms. Vision/Cognition: Affect/Mental Status (Cognitive)confused Mobility/Tone: Transfer Assessment/Interventionssi t to stand transfer; stand to sit transfer Sit-Stand [place] (Transfers)supervision Sit-Stand Assistive Device (Transfers)walker, front-wheeled Stand-Sit [place] (Transfers)supervision Stand-Sit Assistive Device (Transfers)walker, front-wheeled Gait/Stairs Locomotiongait/ambulation independence; gait/ambulation assistive device; stairs negotiation Gait Locomotion (Gait)supervision Assistive Device (Gait Training)walker, front-wheeled Stairs Negotiation (Stairs)stairs activity; handrail location [place] Level (Stairs Training)supervision; pt reports going up stairs at home on her butt due to RLE pain; pt has 10 stairs, landing, +10 stairs with L HR to bedroom Handrail Location (Stairs Training)left side (ascending); both hands on L HR Comment, Gait/Stairs Trainingamb 150'x2 with slow, steady gait navigated 2x6 steps x2 Safety Issues Impacting Function (Mobility)ability to follow commands; impulsivity; judgment; positioning of assistive device; sequencing abilities Impairments Impacting Function (Mobility)cognition; pain Sensory: Pain Locationc/o RLE pain, but does not rate intensity Outcomes Tools: Turning from your back to your side while in a flat bed without using bedrails none Moving from lying on your back to sitting on the side of a flat bed without using bedrailsnone Moving to and from bed to chair (including a wheelchair)none Standing up from a chair using your arms (e.g. wheelchair or bedside chair) none To walk in hospital roomnone Climbing 3-5 steps with railingnone AM-PAC (PT) Total Score24 Short Term Goals: Bed Mobility: Date [id number] Bed Mobility: [place] Level Goalmodified independent Transfer: Established Transfer: Transfer Type Goalall transfers Transfer: [place] Level Goalmodified independent Gait: Established Gait: [place] Level Goalmodified independent; Sunil goals contingent upon patient cognitive improvement. Otherwise will default to supervision level goals. Gait: Assistive Device Goalrolling walker Gait: Distance Goal50 Stair: Established Stair: [place] Level Goalstand-by assist Stair: Goal Detailswith/HR/AD as needed for home entry. Education: Learnerpatient Barriers to Learningcognitive limitations barrier; acuteness of illness barrier Methoddemonstration; verbal Outcome Evaluation1=partially meets; needs review Topicfall prevention; proper use of adaptive equipment to increase safety and decrease fall risk Outcome Summary: Progress: Physical Therapyprogress toward functional goals as expected DC Recommendations: Discharge Recommendation (PT Eval)LOW intensity PT services at d/c; pt with new onset of confusion and decreased safety awareness Demonstrates Need for Referral to Another Service (PT Eval)speech language pathology Electronic Signatures: Jonna Sotelo (PT) (Signed 23-Mar-2023 11:26) Authored: Info, Vision/Cognition, Mobility/Tone, Senso (more content not included)... Normal [facility] Admission Risk Screen - Adul ton 03-22-2023 Admission Risk Screen - Adult Allergies: Allergies: penicillin: Unknown Patient Verification: New W ID Band Applied in my Departmentyes Patient Identity Verified Bypatient ID Band FULL Name, include Middle, spelling matches patient's ID used for verificationyes ID Band Matches Patient ID used for Verficationyes ID Band MRN Matches EMR MRNyes Visitor Restriction: Coronavirus Visitor Restriction: Reasonable restrictions to in-person visitors will be observed due to current coronavirus pandemic. Travel History: COVID-19 Screening Completedno exposure or symptoms(1) Travel or Exposure Past 30 DaysNO travel to International locations in the past 30 days Ebola AlertFor Ebola-like Symptoms: Isolate Patient and Notify Provider/Athletic Scout For Contact: Notify Provider/Athletic Scout Advance Directive: Advance Directive/DNRno Advance Directive Information Givenpatient/family declined Ken Fall Screen: History of falling (immediate or previous)no (0) Secondary Diagnosisyes (15) Intravenous Therapy/ Heparin/Saline Lockyes (20) Gait/Transferringnormal/be drest/wheelchair (0) Ambulatory Aidscrutches/walker/cane (15) Mental Statusoverestimates/forget s limitations (15) Score: Low risk (<25). Moderate risk (25-44). High risk (>44).65 Ken InterventionsHIGH INTERVENTIONS *Low and Moderate Interventions Plus: * supervised toileting at all times Family Violence Screen: Are you or have you been threatened or abused physically, emotionally, or sexually by anyoneno Do you feel UNSAFE going back to the place where you are livingno Clinical assessment: Are there any apparent signs of injuries/behaviors that could be related to abuse/neglectno Social Service Consult for abuse/neglect needed this visitno Functional Screen: Functional Screen: In the recent/past 2-4 weeks, patient or family have noticedno issues that require a speech/language consult at this time AM-PAC- Basic Mobility/Daily Activity: Patient baseline bedboundno Turning from your back to your side while in a flat bed without using bedrailsnone Moving from lying on your back to sitting on the side of a flat bed without using bedrailsnone Moving to and from bed to chair (including a wheelchair)none Standing up from a chair using your arms (e.g. wheelchair or bedside chair) none To walk in hospital rooma vaishali Climbing 3-5 steps with railinga vaishali Basic Mobility - Total Score22 Putting on and taking off regular lower body clothingnone Bathing (including washing, rinsing, drying)none Putting on and taking off regular upper body clothingnone Toileting, which includes using toilet, bedpan or urinalnone Taking care of personal grooming such as brushing teethnone Eating Mealsnone Daily Activity - Total Score24 Learning Assessment (Patient): Patient is Able to be Assessed for Learningyes Factors Influencing Readiness to Learnacuteness of illness Factors that Impact Ability to Learnacuteness of illness, comprehension Devices/Methods Used to Communicatecommunication board Learning Preferencesindividual instruction; verbal instruction Cultural Considerationsnone Developmental Considerationsnone Zoroastrian Considerationsnone Learning Assessment (Other Learner): Other learner availableno Depression Screen: During the past month, have you often been bothered by feeling down, depressed or hopelessno During the past month, have you often had little interest or pleasure in doing thingsno Have you had any thoughts of harming anyone elseunable to assess (1) [place] Suicide: Risk Screen Not Applicable/Able to Answerable to be screened In the Past Month: Have you wished you were or could go to sleep and not wake upno In the Past Month: Have you had any actual thoughts of killing yourselfno Lifetime: Have you ever done, started to do, or prepared to do anything to end your lifeno [place] Suicide Risknegative Adult Nutrition Screen: Have you recently lost weight without tryingunsure Have you been eating poorly because of a decreased appetiteno Malnutrition Screening Tool Score2 Malnutrition Screening Tool RiskMST = 2 or more At Risk. Eating poorly and/or recent weight loss Nutrition Consult needed this visityes Can Patient Participate in Room Serviceyes, with assistance Patient requires Paper Dishes/Plastic Utensilsno Pain Screen: Pain Scalenumerical 0-10 Pain Scale Educationteaching provided Current Pain Level3 = Mild Acceptable Pain Level3 = Mild Expression of Pain (nonverbal)verbalization Chronic Painyes Chronic Lower Extremity pain locationright, leg Spiritual Screen: Are there any cultural, spiritual, gnosticism practices/values/needs that are important for us to knowno CAGE: Is this an injured patient at a Trauma Center ([facility]/Nicky/Teo/Mikel/Omar Martell/Ronni): no (2) Vaccinations: Vaccination - Influenza Vaccination Screen: (more content not included)... [facility] BLOOD CULTURE, BACTERIALon 0 03-22-2023 BLOOD CULTURE, BACTERIAL PATIENT: MIKO REECE LOCATION: [place] [address] BILL#: [id number] : 41 AGE: SEX: F ORDERED BY: MYRNA BROOKS SOURCE: Blood COLLECTED: 03/22/23 16:53 ANTIBIOTICS AT [place].: RECEIVED : 03/23/23 09:08 SITE: PERIPHERAL R E S U L T S BLOOD CULTURE, BACTERIAL FINAL 03/27/23 09:42 No Growth at 1 days No Growth at 2 days No Growth at 3 days NO GROWTH at 4 days - FINAL REPORT [facility] Comment on above: Performed By: #### B LDC ####[id number] [place] [address] BLOOD CULTURE, BACTERIAL PATIENT: MIKO REECE LOCATION: [place] [address] BILL#: [id number] : 41 AGE: SEX: F ORDERED BY: MYRNA BROOKS SOURCE: Blood COLLECTED: 03/22/23 16:45 ANTIBIOTICS AT [place].: RECEIVED : 03/23/23 09:06 SITE: PERIPHERAL R E S U L T S BLOOD CULTURE, BACTERIAL FINAL 03/27/23 09:42 No Growth at 1 days No Growth at 2 days No Growth at 3 days NO GROWTH at 4 days - FINAL REPORT [facility] Comment on above: Performed By: #### B LDC #### [facility] [address] [place] [address] CBCon 03-22-2023 Erythrocyte distribution width (RBC) [Ratio] 14.0 % Normal 11.5 - 14.5 [facility] Comment on above: Performed By: #### B LDC #### [facility] [address] [place] [address] Hematocrit (Bld) [Volume fraction] 36.7 % Normal 36.0 - 46.0 [facility] Comment on above: Performed By: #### B LDC #### [facility] [address] [place] [address] Hemoglobin (Bld) [Mass/Vol] 12.1 g/dL Normal 12.0 - 16.0 [facility] Comment on above: Performed By: #### B LDC #### [facility] [address] [place] [address] MCHC (RBC) [Mass/Vol] 33.0 g/dL Normal 32.0 - 36.0 [facility] Comment on above: Performed By: #### B LDC #### [facility] [address] [place] [address] MCV (RBC) [Entitic vol] 94 fL Normal 80 - 100 [facility] Comment on above: Performed By: #### B LDC #### [facility] [address] [place] [address] Platelets (Bld) [#/Vol] 124 10*3/uL Low 150 - 450 [facility] Comment on above: Performed By: #### B LDC #### [facility] [address] [place] [address] RBC 3.90 x10E12/L Low 4.00 - 5.20 [facility] Comment on above: Performed By: #### B LDC #### [facility] [address] [place] [address] WBC (Bld) [#/Vol] 9.9 10*3/uL Normal 4.4 - 11.3 [facility] Comment on above: Performed By: #### B LDC #### [facility] [address] [place] [address] CT BILATERAL LOWER EXT WO CO NTRASTon 03-22-2023 CT BILATERAL LOWER EXT WO CONTRAST Patient Name: MIKO REECE STUDY: CT BILATERAL LOWER EXT WO CONTRAST; ; 03/21/2023 10:03 pm INDICATION: alterered LOC h/o falling, hip pain, fever. ?occult fx, ?joint effusion . COMPARISON: None. ACCESSION NUMBER(S): [id number] ORDERING CLINICIAN: DEBRA AVILES TECHNIQUE: Noncontrast axial CT images of the bilateral hips with sagittal coronal reconstructed images. FINDINGS: Right hip: No acute fracture or malalignment. Moderate hip osteoarthrosis. No osseous destruction or aggressive periosteal bone formation is there is a trace right hip joint effusion. The imaged the gluteal and proximal thigh musculature is within normal limits. There is calcification of the femoral artery. Left hip: No acute fracture or malalignment. Moderate hip osteoarthrosis. No osseous destruction or aggressive periosteal bone formation. No hip joint effusion. The imaged gluteal and proximal thigh musculature is within normal limits. There are calcifications of the femoral artery. IMPRESSION: No acute fracture or malalignment. Moderate bilateral hip osteoarthrosis. Trace right hip joint effusion. Electronically signed by: AZRA FIELDS MD [facility] Discharge Planning Hidl1vc 0 03-22-2023 Discharge Planning Note2 Discharge Planning: Planned Dispositionhome [facility] < 20yes Home Health Consultedno; Pt wants to go outpt PT (Adult Med/Surg) Is the Patient Being Discharged on an Opioidno Anticipated Discharge [id number] Discharge Planning 03/23/2023 1033 Met with pt in room: she recognized this SW but did not remember meeting with me yesterday. She was very shocked by that as she was under the impression that her SO sent her here for no reason. She is now accepting that she was altered and that after treatment and good rest, she is getting better. [facility] today is 19. PT was going to outpt PT and she would like to resume this therapy. PT is willing to see neurology if this happens again and 'I will trust Geroinmo if he sees this level of confusion again. Pt feels she has everything she needs to manage her health at home. MARIBELL Gary Assessment: Discharge Planning Assessment [id number] Discharge Planning Assessment Completed byMARIBELL Gary Primary Contact [facility] and Number[facility] [phone] Prior Level of Functioningindependent- recently using a walker Lives Withsignificant other(1) Living Arrangementshouse(1) Stated Reason for AdmissionConfusion(2) Arrived Fromemergency department (2) PCPE. Jenni Equipment Currently Used at Homewalker Resource/Environmental Concernsnone(2) Anticipated Transition Tosaint charles with help/services(2) [facility](2) InsuranceAnthem Medicare Anticipated Changes Related to Illnessnone Equipment Needed After Dischargenone Anticipated Discharge Facility/Level of Care [facility] - New Discharge Planning Comments03/22/2023 0932 Met with pt in room: she lives with her SO- Geronimo and has been independent with ADLS. Just this week she purchased a walker for safety. PT/OT evals pending- [facility] 18. Pt is a little more alert today but not entirely focussed. She does not understand why she is here and does not agree that she was confused. SW to follow for transitional support. MARIBELL Gary Social Determinants of Health Identifiedconfused Transportation Home Who/HowSO/car Medication Adherence/Afford/Obtainyes Nursing Checklist: Lines/Cathetersremoved/winston ropriate for next level of care Discharge Med Rec Reconciled with Dennis Patient has Prescriptionsyes Transportation for Discharge Confirmedyes Follow up Reviewedyes Discharge Instructions Reviewed WithPatient Discharge Instructions Outcomeverbalize recall/understanding Discharge Instructions Review Completed with Patient/Family (diet, activity, pt instructions)yes Discharge Documentation: Discharge/Transfer Date/[id number] 15:17 Discharged Accompanied Bysignificant other/partner Transportation Methodprivate car Discharge Modewheelchair Code StatusCode Status order at time of discharge: Full Code Discharge Order Writtenyes [place] DNR Form Sent with Patient and/or Familyn/a Valuables/Medications/Belo ngings Returnedyes Final Disposition.Home Electronic Signatures: Jossy Hernández (OLGA) (Signed 23-Mar-2023 16:11) Authored: Discharge Planning, Nursing Checklist, Discharge Documentation Deepti Magdaleno) (Signed 23-Mar-2023 11:42) Authored: Discharge Planning, Assessment, Discharge Documentation Last Updated: 23-Mar-2023 16:11 by Jossy Hernández (OLGA) References: 1. Data Referenced From PT Evaluation v2-physical therapy 22-Mar-2023 08:39 2. Data Referenced From Patient Profile - Adult v2 21-Mar-2023 23:58 [facility] Discharge Hikenlu6jx 06-14-2 023 Discharge Profile2 Discharge Orders: Anticipated Discharge Date: Anticipated Discharge [id number] Code Status: Code Status at Discharge: Full Code DNR Order Additional Instructions (peds only): Activity: activity as tolerated. May shower. May return to school/work Instructions: No pushing, pulling, or lifting objects greater than 10 pounds. Weight-bearing Instructions: full weight bearing. Diet: Dietresume normal diet Call Provider If (Homegoing Patients): Breathing faster than normal. Breathing harder than normal or having retractions. Fever of 100.4 F (38 C) or higher. Temperature is greater than 102 degrees. Chills. Drinking less than normal. Not being able to go 4-6 hours between albuterol treatments. Urinating less than normal, over 1 day. Urinating less than 4 times per day. Acting very sleepy and difficult to awaken. Vomiting (throwing up) and not able to eat or drink for 12 hours. 3 or more loose, watery bowel movements in 24 hours (diarrhea). Hospital Course (Home Care/Gold Form): Hospital Course: Hospital Course: include significant abnormal lab values MIKO REECE is a 78 year old Female with a PMH of HTN, arthritis who presents to [facility] ED due to altered mental status. Patient states that she is unsure why she is here and would like to get to the bottom of it. is not present in the room during exam, but reports state that he reported the patient fell one week ago. states that the patient has had intermittent confusion as well. The patient has been coming to the outpatient PT team at [facility] from a long time, and the stated that he thinks maybe the patient caught something from the hospital. Patient attests to this as well saying she fell in the bathtub from a mechanical fall on her tailbone. Denies hitting head. In addition, patient states that her keeps saying she is confused but she repeatedly tells us im not nuts. Patient is able to deny CP, palpitations, SOB, cough, fever, n/v/d, COREAS, abdominal pain, changes in vision/hearing. 10 points ROS negative except what was discussed above. 1) Acute Encephalopathy likely 2/2 UTI vs other - UA shows 1+ bacteria with +white cells, culture pending - no leukocytosis - On Rocephin IV Day 2---> to finish out course of cefuroxime 500mg by mouth twice a day - CT Head, C spine negative for acute findings - denies new medications, recent illness, ill contacts - I saw the patient a second time today after my initial exam and noted that she was having an episode where she was responsive to her name but was essentially AOX0 and repeatedly closing her eyes. Borderline lethargic and not able to follow commands or answer questions appropriately. Several minutes later, she came out of this episode and returned to her baseline AOx3. She had no recollection that of this episode occurring. I am considering that this patient may potentially have an underlying seizure disorder that has not been previously diagnosed. She did deny knowledge of a seizure hx and I could not locate any reports of this in the EMR. I dod not think this is acute delirium. However, her symptoms may also be secondary to the UTI. - Will continue to monitor and assess for any other episodes of the above. May consider Neurology/EEG/MRI based on clinical course and findings. 2) mild UTI- will finish out cefuroxime. If episodes of this occur out of the context of a correlative cause like UTI, may consider neurology or other workup. Provider FINAL REVIEW of Orders: Final Review: Final Review of Medication Reconciliation and Orders Completedby Physician Reviewing ProviderJanee Spivey MD at 23-Mar-2023 13:34:25 Other Clinician Instructions: Other Instructions: Hearing Examiner/Care Transitions Team InstructionsMARIBELL Gary, CARE TRANSITIONS [phone]. It is important to me that you understand your transition plan so that you are able to remain healthy outside of the hospital. I am available for any concerns, questions you may have after discharge. The number above is a secure message line. If I do not answer, please leave a message and I will return your call as soon as I get back to the office: M-F 8-4:30pm. Electronic Signatures: Janee Spivey) (Signed 23-Mar-2023 13:34) Authored: Discharge Orders, Hospital Course (Home Care/Gold Form), Provider FINAL REVIEW of Orders Deepti Magdaleno) (Signed 22-Mar-2023 10:13) Authored: Discharge Orders, Other Clinician Instructions, Gold Form - Pbx Manager Summary Last Updated: 23-Mar-2023 13:34 by Janee Spivey) [facility] Nutrition Therapy-Assessment on 03-22-2023 Nutrition Therapy-Assessment Assessment Subjective/Objective: Note Type: Assessment Note Authored by: Registered Dietitian Editor [employer] Nutrition Note: The patient is a 78 year old Female with delirium. MST = 2 or more At Risk. Unsure of wt loss. HPI: Pt presented to the ED with altered mental status. According to patient's she fell about a week ago and had injured her hip. She went to the hospital after the fall and has been having fatigue and congestion since discharge. reports she is not eating or drinking and is having confusion off and on. also report she can not sleep due to hip pain. called squad for ongoing confusion. MARGARETN consulted - pt reported on admission she was unsure if she has had wt loss. Pt admitted with poor / decline in cognition. %PO for breakfast per flowsheet - 75% Pt discussed at IDT meeting. PT recommending mild intensity therapy if cognition clears, OT eval pending. Pt visited at lunch, able to feed herself, but could not stay awake to eat her meal. Medical Surgical History: HTN Objective Information: T PRBPMAPSpO2 [id number]% Date/Time03/22 5: 5: 5: 5: 5: 5:51 Range(36.7C - 38.3C ) (92 - 121 ) (15 - 23 ) (99 - 158 )/ (51 - 80 ) (71 - 106 ) (94% - 96% ) Highest temp of 38.3 C was recorded at 03/21 20:03 Pain reported at 03/22 8:51: 0 = None Weights 03/21 23:58: Weight in kg (Weight (kg)) 55.9 03/21 23:58: Weight in lbs ((lbs)) 123.2 03/21 23:58: BMI (kg/m2) (BMI (kg/m2)) 22.911 Height/Weight: Height in feet: 5 feet Height in inches: 3 inch(es) Height in cm: 160 centimeter(s) Weight (kg): 55.9 BMI (kg/m2): 21.835 square meter DBW (kg): 59 %DBW: 95 Weight history/ % weight change: Per community rec: *limited wt hx 09/21/21 - 130 lbs / 59 kg Recent Lab Results: Results: I have reviewed these laboratory results: Complete Blood Count 22-Mar-2023 06:40:00 ResultValue White Blood Cell Count 9.9 Red Blood Cell Count 3.90 L HGB 12.1 HCT 36.7 MCV 94 MCHC 33.0 PLT 124 L RDW-CV 14.0 Thyroid Stimulating Hormone, Serum 22-Mar-2023 06:40:00 ResultValue Thyroid Stimulating Hormone, Serum 0.97 Comprehensive Metabolic Panel 21-Mar-2023 19:30:00 ResultValue Glucose, Serum 125 H NA 136 K 3.2 L CL 96 L Bicarbonate, Serum 29 Anion Gap, Serum 14 BUN 24 H CREAT 0.90 GFR Female 65 Calcium, Serum 8.8 ALB 4.0 ALKP 93 T Pro 7.7 T Bili 1.1 Alanine Aminotransferase, Serum 28 Aspartate Transaminase, Serum 32 Current Active Medications/PN: amLODIPine (NORVASC), Tablet DOSE = 5 mg Oral Daily, 22-Mar-2023 Enoxaparin SubCutaneous, (LOVENOX) DOSE = 40 mg SubCutaneous Every 24 Hours, 22-Mar-2023 Acetaminophen, Tablet (TYLENOL) DOSE = 650 mg Oral Every 4 Hours, PRN Pain - Mild (1-3), 22-Mar-2023 Ondansetron Injectable, (ZOFRAN) DOSE = 4 mg IntraVenous Push Every 4 Hours, PRN Nausea and/or Vomiting, 22-Mar-2023 Sodium Chloride 0.9% Injectable Flush, via Peripheral Line Volume = 10 mL IntraVenous Flush Every 8 Hours and as Needed, 22-Mar-2023 cefTRIAXone 1 gram/ Dextrose 5% IVPB Premixed Soln 50 mL, (ROCEPHIN) Every 24 Hours Recommended Infusion Time: 30 minute(s), 22-Mar-2023 Sodium Chloride 0.9% Infusion, IV Bag Volume = 1,000 mL Run at: 75 mL/hr IntraVenous , 22-Mar-2023 Nutrition Orders: Diet May Participate in Room Service W. Assistance, Yes Order entered from Admission Screens., 22-Mar-2023 Diet, Regular, 22-Mar-2023 Food/Nutrition Related History: Energy Intake: fair 50-75% GI Symptoms: none, BM 03/21/23 Oral Problems: denies Mobility: difficulty with normal activity, -home with significant other; some difficulty with activity due to decrease in cognition Nutrition Focused Physical Findings: Physical Findings: deferred lethargy; decline in cognition Edema: Edema: none Physical Findings (nutrition deficiency/toxicity): Skin: WDL Estimated Needs: kcals/day: [id number] Predictive Equation Used: kcals/kg; 25-30 gms protein/day: 59 Weight Used: actual body wt; 1.0 mL fluid/day: 1 mL/Kcal Nutrition Diagnosis: Additional Assessment Information: Difficult to determine nutrition status at this time due to lethargy and lack of weight history. Not appropriate to send nutrition supplements at this time as pt unable to stay awake to safety eat lunch. Nutrition Interventions: Individualized Nutrition Prescription Provided for: diet, fluids Coordination of Care with: IDT meeting Nutrition Education: Diet Education: not applicable Nutrition Goals: Goals: Nutrition Therapy: oral intake greater than 75%, lab values within normal limits, maintain stable weight Nutrition Goal Outcomes: will assess upon f/u Nutrition Therapy Recommendations: Nutrition Therapy Recommendations: Agree with regular liberalized diet; encourage intake and offer intake (more content not included)... [facility] OT Evaluation v2-occupationa l therapyon 03-22-2023 OT Evaluation v2-occupational therapy Rehab: Info: Mode of Treatmentoccupational therapy Time IN11:20 Time OUT11:40 Total Treatment [id number] Patient in ... at end of sessionbed, 2 railings up; alarm on Communicated with ... at end of sessionbedside nurse Patient Effortadequate Symptoms Noted During/After Treatmentnone Patient Profile Reviewedyes Onset of Illness/Injury or Date of [id number] Reason for ReferralAltered mental status, UTI Referring PhysicianDajonn Barrera NP General Observations of PatientNsg cleared patient for evaluation. Pt supine in bed, confused and cold. Pertinent History of Current Functional Problemincreased confusion, brought to ER for assessment. Found to have UTI Hand Dominanceright Hearing Precautions/LimitationsWFL Precautions/Limitationsfal l precautions Limitations/Impairmentssaf ety/cognitive Ambulation Skills - Previous Level of Functionindependent Transfer Skills - Previous Level of Functionindependent ADL Skills - Previous Level of Functionindependent Living Arrangementshouse Lives Withsignificant other Vision/Cognition: Affect/Mental Status (Cognitive)confused Orientation Status (Cognition)person; oriented to; place Cognitive Function (Cognitive)executive function deficit; memory deficit Executive Function Deficit (Cognition)severe deficit; insight/awareness of deficits; planning/decision making; problem solving/reasoning; organization/sequencing; judgment Memory Deficit (Cognitive)moderate deficit; short-term memory; long-term memory; recall, recent events ROM: Upper Extremity: Range of Motionleft upper extremity ROM WFL; right upper extremity ROM WFL Hand: Range of MotionB arthritic changes in hands MMT: Upper Extremity: Manual Muscle Testing (MMT)left upper extremity strength WFL; right upper extremity strength WFL Mobility/Tone: Bed Mobility Assessment/Interventionssu pine to sit; sit to supine Rheact-jr-Zav [place] (Bed Mobility)supervision; verbal cues Dxb-ik-Akeehw [place] (Bed Mobility)minimum assist (75% patient effort); 1 person assist; verbal cues Transfer Assessment/Interventionssi t to stand transfer; stand to sit transfer; toilet transfer Sit-Stand [place] (Transfers)supervision; verbal cues Sit-Stand Assistive Device (Transfers)walker, front-wheeled Stand-Sit [place] (Transfers)supervision; verbal cues Stand-Sit Assistive Device (Transfers)walker, front-wheeled Toilet [place] (Transfers)standby assist; verbal cues Toilet Assistive Device (Transfer)walker, front-wheeled Gait/Stairs Locomotiongait/ambulation independence; gait/ambulation assistive device Gait Locomotion (Gait)verbal cues; contact guard; 1 person assist Assistive Device (Gait Training)walker, front-wheeled Safety Issues Impacting Function (Mobility)ability to maintain safety precautions; insight into deficits/self awareness; problem solving; judgment; sequencing abilities; awareness of need for assistance Impairments Impacting Function (Mobility)balance; endurance/activity tolerance; cognition ADL: BADL Assessment/Interventiontoi leting; lower body dressing; upper body dressing [place] Level (Upper Body Dressing)minimum assist (75% patient effort) [place] Level (Lower Body Dressing)moderate assist (50% patient effort) [place] Level (Toileting)moderate assist (50% patient effort) Impairments, BADL Safety/Performancecognitio n Cognitive Impairments, BADL Safety/Performanceinsight into deficits/self awareness; judgment; problem solving/reasoning; sequencing abilities Motor: Sitting, Static (Balance)good balance Sitting, Dynamic (Balance)good balance Standing, Static (Balance)fair balance Standing, Dynamic (Balance)fair balance Sensory: Pre-Treatment Pain Rating0/10 - no pain Post-Treatment Pain Rating0/10 - no pain Health: Observed Emotional Statecooperative Plan of Care Reviewed Withpatient Impression: Criteria for Skilled Therapeutic Interventions Met (OT Eval)yes; treatment indicated OT DiagnosisImpaired ADL's and cognition Patient/Family Goals Statement (OT Eval)unable to state Rehab Potential (OT Eval)good, to achieve stated therapy goals Therapy Frequency (OT Eval)2 times/wk Predicted Duration of Therapy Intervention5 days Functional Limitations in Following Categoriesself-care Expected Duration Therapy Eymykiv78 minutes; 30 minutes Planned Therapy Interventions (OT Eval)transfer training; ADL retraining Outcomes Tools: Putting on and taking off regular lower body clothinga lot Bathing (including washing, rinsing, drying)a lot Toileting, which includes using toilet, bedpan or urinala lot Putting on and taking off regular upper body clothinga little Taking care of personal grooming such as brushing teetha little Eating Mealsa little AM-PAC (OT) Total Score15 Short Term Goals: Bed Mobility: Date [id number] Bed Mobility: [place] Level Goalmodified (more content not included)... [facility] Order Reconciliationon 03-22 Order Reconciliation Page 1 Admission Reconciliation Document Reconciliation Type: ED to Observation requested on behalf of Janee Barrera (Advanced Practice Nurse-Admit) done by Janee Barrera ([facility]) ED to Observation - Reconciliation: 22-Mar-2023 03:25 by: Janee Barrera ([facility]) ED to Observation - AutoLinked: 22-Mar-2023 03:25 by: Janee Barrera ([facility]) Home MedicationsEnteredLast Dose TakenReconciled with current Order Reconciliation Comment/ Additional Information amlodipine 5 mg tablet 1 tab(s) orally once a day AM amLODIPine (NORVASC) TabletDOSE = 5 mg Oral Dailyamlodipine 5 mg tablet continued as the inpatient order amLODIPine (NORVASC) ergocalciferol 1.25 mg (50,000 intl units) oral capsule 1 cap(s) orally once a [id number] Reviewed and Held ibuprofen 800 mg oral tablet 1 tab(s) orally 3 times a day, As Needed 22-Mar-2023 Reviewed and Held Tylenol 500 mg oral tablet 2 tab(s) orally 3 times a day, As [id number] Reviewed and Held [facility] PT Evaluation v2-physical th erapyon 03-22-2023 PT Evaluation v2-physical therapy Rehab: Info: Mode of Treatmentphysical therapy Time IN08:15 Time OUT08:43 Total Treatment [id number] Patient in ... at end of sessionchair; alarm on Communicated with ... at end of sessionbedside nurse; CTA/NA/PROGRAM RESEARCH SPECIALIST Patient Effortgood Symptoms Noted During/After Treatmentincreased pain; Has some minor R knee discomfort with ambulation. Patient Profile Reviewedyes Onset of Illness/Injury or Date of [id number] Reason for ReferralAssess mobility after admission with delirium. Referring PhysicianDajonn Barrera NP General Observations of PatientAlert. Patient familiar to therapist from past and current OP courses of PT. She was initially unable to identify this facility and is unable to recall her ambulance transfer here yesterday. (patient typically A@)x4). Pertinent History of Current Functional ProblemFound to be confused by SO. To [facility] for assessment and management. Hearing Precautions/LimitationsWFL Precautions/Limitationsfal l precautions Limitations/Impairmentssaf ety/cognitive Ambulation Skills - Previous Level of Functionindependent Transfer Skills - Previous Level of Functionindependent Living Arrangementshouse Lives Withsignificant other Vision/Cognition: Affect/Mental Status (Cognitive)unable/difficul t to assess Orientation Status (Cognition)person; verbal cues/prompts needed for orientation; time ROM: Upper Extremity: Range of Motionleft upper extremity ROM WFL; right upper extremity ROM WFL Lower Extremity: Range of Motionleft lower extremity ROM WFL; right lower extremity ROM WFL MMT: Upper Extremity: Manual Muscle Testing (MMT)left upper extremity strength WFL; right upper extremity strength WFL Lower Extremity: Manual Muscle Testing (MMT)left lower extremity strength WFL; right lower extremity strength WFL Mobility/Tone: Bed Mobility Assessment/Interventionssu pine to sit to supine Supine to Sit to Supine [place] (Bed Mobility)supervision; verbal cues Transfer Assessment/Interventionssi t to stand transfer; stand to sit transfer Sit-Stand [place] (Transfers)supervision; verbal cues Stand-Sit [place] (Transfers)supervision; verbal cues Gait/Stairs Locomotiongait/ambulation independence; distance ambulated; gait deviations; gait/ambulation assistive device Gait Locomotion (Gait)supervision; verbal cues Assistive Device (Gait Training)walker, front-wheeled Distance in Feet (Gait Training)50 Gait Deviations Identified (Gait)decrease trunk rotation; increased time in double stance; decreased velocity of limb motion; decreased step length; decreased stride length Comment, Gait/Stairs TrainingMildly R antalgic gait 2/2 knee pain. Safety Issues Impacting Function (Mobility)ability to maintain safety precautions; insight into deficits/self awareness; problem solving Impairments Impacting Function (Mobility)balance; endurance/activity tolerance; pain Sensory: Pre-Treatment Pain Rating0/10 - no pain Post-Treatment Pain Rating0/10 - no pain Pain LimitationFunctional mobility limited due pain Health: Observed Emotional Statecooperative Plan of Care Reviewed Withpatient Impression: Criteria for Skilled Therapeutic Interventions Met (PT Eval)yes PT DiagnosisDecreased mobility, mild deconditioning. Physical Therapy PrognosisGood Functional Level at Time of Evaluation (PT Eval)Supervision Patient/Family Goals Statement (PT Eval)None voiced System Pathology/Pathophysiology Noted (PT Eval)genitourinary Impairments Found (PT Eval)aerobic capacity/endurance; gait, locomotion, and balance Functional Limitations in Following Categoriescommunity/leisur e; mobility/gait; stairs Disability: Inability to Perform Actions/Activities of Required Roles community/leisure Assessment (PT Eval)Patient demonstrating mild mobility deficits related to new onset of delirium. Will benefit from progressive mobility training as her cognition improves. Rehab Potential (PT Eval)good, to achieve stated therapy goals Therapy Frequency (PT Eval)3 times/wk Predicted Duration of Therapy Intervention7 days Expected Duration Therapy [id number] minutes Planned Therapy Interventions (PT Eval)balance training; bed mobility training; gait training; home exercise program; neuromuscular re-education; patient/family education; stair training; strengthening; transfer training Outcomes Tools: Turning from your back to your side while in a flat bed without using bedrails none Moving from lying on your back to sitting on the side of a flat bed without using bedrailsa little Moving to and from bed to chair (including a wheelchair)a little Standing up from a chair using your arms (e.g. wheelchair or bedside chair)a little To walk in hospital rooma little Climbing 3-5 steps with railinga little AM-PAC (PT) Total Score19 Short Term Goals: Bed Mobility: Date [id number] Bed Mobility: [place] Level Goalmodified (more content not included)... Normal [facility] Patient Profile - Adult v2on 03-22-2023 Patient Profile - Adult v2 Profile: Initial Info: How to be AddressedVirgin[place] Spoken Language PreferredEnglish Stated Reason for AdmissionConfusion Wants Family/Rep Notified of Admissionn/a; family present Notify PCPnotify PCP Informed of Patient Visiting Rightsyes [facility] Patient Belongingsremains with patient Patient Belongings Remaining with Patientclothing Medications Brought to Hospitalno General Health: Weight in kg55.9 kilogram(s)(1) Weight in wnd795.2 pound(s) Weight Methodactual (measured) (1) Scale Typebed (1) Height in cm156.2 centimeter(s)(1) Height in feet5 feet Height in inches1.5 inch(es) Height Methodstated BMI (kg/m2)22.911 square meter RSP Based Care: How would you like to participate in your careI don't know What is the number one concern for you during this hospitalizationI don't know why Im here What is the most important thing we can do to support you during this hospitalizationI don't know Is there anything we need to know to best care for youno Substance: Smoking Statusnever smoker (2) Alcohol Usedenies(3) Drug Usedenies (3) Health Mgmt: Symptoms/Conditions Managed at [facility] coordinator (May Saunders, [place] Only) Previous Colonoscopyno Colonoscopy Final Recommendationschedule colonoscopy Sleep Apnea Screeningno Previous Osteoporosis Screeningno Over 65yes Prior coronary calcium scoringno Without known coronary artery disease and one of the following risk factors none Coronary Calcium Final Recommendationscreening not indicated Relationship/Environ: Resource/Environmental Concernsnone Primary Source of Support/Comfortspouse Lives Withspouse Living Arrangementshouse Services [facility] Anticipated Transition Tosaint charles with help/services Significant IndicatorsComplete Information Review: Allergies, Home Meds and Significant Events have been Reviewed and Verified with Patient/Familyyes ALLERGY, INTOLERANCE, ADVERSE EVENT: Allergies: penicillin: Drug, Unknown, Active Electronic Signatures: Toyin Fontana (OLGA) (Signed 22-Mar-2023 00:48) Authored: Initial Info, General Health, RSP Based Care, Substance, Health Mgmt, Relationship/Environ, Additional Information Last Updated: 22-Mar-2023 00:48 by Toyin Fontana (OLGA) References: 1. Data Referenced From 1. Vital Signs 21-Mar-2023 23:55 2. Data Referenced From Provider Note - ED v3 21-Mar-2023 22:17 3. Data Referenced From Risk Screen - Adult Emergency 21-Mar-2023 20:20 Normal [facility] Provider Note - ED v3on 03-09 Provider Note - ED v3 Provider Note: Chart Review: ED NOTES ED NOTES: This patient presents to the emergency department via ambulance for altered mental status. According to patient's she had a fall about a week ago and had injured her hip. She was getting outpatient physical therapy for it. says he thinks she might of picked something up at the hospital because she had some fatigue and congestion and spent 3 days in bed. He says she was not eating or drinking very well and has been confused off and on. He said last night she could not sleep at all because she said her hip was hurting and was confused again this evening; therefore, he had the squad bring her. EMS reports patient was febrile for them. States that she was [place] negative but oriented only to person. Patient is denying any pain anywhere. She ambulated from house to the ambulance stretcher without any limp. She does not recall the fall. She is oriented to person only at this time. HISTORY OF PRESENTING ILLNESS MIKO is a 78 year old Female and was seen by me at 21-Mar-2023 19:50 for a chief complaint of altered mental status . Other complaints include: To ED via EMS with report of altered mental status. Per EMS, patient fell one week ago, did not seek medical attention. states she hasn't been sleeping d/t right leg/hip pain. noted patient is confused today. On arrival, patient oriented to name only.(1). The historian is the Jacki. Triage Information: Most recent Vital Sign Value Date Temp (F): 101.1 03-21-2023 20:03 Temp (C): 38.3 03-21-2023 20:03 Heart Rate (beats/min): 111 03-21-2023 20:03 Respirations (breaths/min): 20 03-21-2023 20:03 SpO2 (%): 95 03-21-2023 20:03 BP Systolic (mm Hg): 156 03-21-2023 20:03 BP Diastolic (mm Hg): 78 03-21-2023 20:03 PAST MEDICAL HISTORY CURRENT OR FORMER SUBSTANCE USE: Tobacco/Nicotine Use: never smoker ALLERGIES/INTOLERANCES: Allergy Allergen: penicillin Type: Drug Reaction: Unknown HEALTH HISTORY: No documented data. OUTPATIENT MEDICATIONS: Home Medications Review Status for Reconciliation: Complete Med Status: Patient Currently Takes Medications Drug Name: amlodipine 5 mg tablet Instructions: 1 tab(s) orally once a day Drug Name: ibuprofen 800 mg oral tablet Instructions: 1 tab(s) orally 3 times a day, As Needed Drug Name: Tylenol 500 mg oral tablet Instructions: 2 tab(s) orally 3 times a day, As Needed SIGNIFICANT EVENTS: Clinical Events Description:Surgical Procedure Additional Notes:Cervical Conization Leep Past Medical History Description:HTN Past Surgical History Description:Tonsillectomy Additional Notes:age 10 Description:Tubal ligation Additional Notes: Description:Left foot great toe joint replacement Description:Right knee arthroscopy PHYSICAL EXAM CONSTITUTIONAL: Appearance: well appearing Distress: no apparent Mentation: awake and alert (oriented only to person) Nourishment: well HENMT: Head Examination: atraumatic Face: no signs of abnormality Ear: - BILATERAL TM's CLEAR Throat: normal pharynx EYES: Clear bilaterally, pupils equal, round and reactive to light. CARDIOVASCULAR: Normal rate, regular rhythm. Heart sounds S1, S2. No murmurs, rubs or gallops. PMI non-displaced. RESPIRATORY: Breath sounds clear and equal bilaterally. GASTROINTESTINAL: Abdomen soft, non-distended, no rebound, no guarding. Bowel sounds normal in all 4 quadrants. MUSCULOSKELETAL: Spine appears normal, range of motion is not limited, no muscle or joint tenderness. No meningismus. NEUROLOGICAL: Level of Consciousness: alert and follows commands Neck: normal Speech: clear NIH Stroke Scale: NIH (baseline) NIH 1a. Level of Consciousness: (0) Alert; keenly responsive NIH 1b. LOC Questions: (1) Answers one question correctly NIH 1c. LOC Commands: (0) Performs both tasks correctly NIH 2. Best Gaze: (0) Normal NIH 3. Visual: (0) No visual loss NIH 4. Facial Palsy: (0) Normal symmetrical movements NIH 5a. Motor Arm, Left: (0) No drift; limb holds 90 (or 45) degrees for full 10 secs NIH 5b. Motor Arm, Right: (0) No drift; limb holds 90 (or 45) degrees for full 10 secs NIH 6a. Motor Leg, Left: (0) No drift; leg holds 30 degree position for full 5 secs NIH 6b. Motor Leg, Right: (0) No drift; leg holds 30 degree position for full 5 secs NIH 7: Limb Ataxia: (0) Absent NIH 8: Sensory: (0) Normal; no sensory loss NIH 9. Best Language: (1) Zlgx-sp-biqnbrln aphasia; some obvious loss of fluency or facility of comprehension, w/o significant limitation on ideas expressed or form of expression. Reduction of speech and/or comprehension, however, makes conversation about provided material difficult or impossible. For example, in conversation about provided materials, examiner can identify picture or naming card content from patient's response. NIH 10. Dysarthria: (0) Normal (more content not included)... Normal [facility] TSHon 03-22-2023 TSH Qn 0.97 m[IU]/L Normal 0.44 - 3.98 [facility] Comment on above: Result Comment: TSH testing is performed using different testing methodology at [facility] than at other [facility]. Direct result comparisons should only be made within the same method. Performed By: #### B LDC #### [facility] [address] [place] [address] BLOOD CULTURE, BACTERIALon 0 03-21-2023 BLOOD CULTURE, BACTERIAL PATIENT: MIKO REECE LOCATION: [place] [address] BILL#: [id number] : 41 AGE: SEX: F ORDERED BY: DEBRA AVILES SOURCE: Blood COLLECTED: 03/21/23 20:35 ANTIBIOTICS AT [place].: RECEIVED : 03/22/23 10:07 SITE: R E S U L T S BLOOD CULTURE, BACTERIAL FINAL 03/26/23 11:42 No Growth at 1 days No Growth at 2 days No Growth at 3 days NO GROWTH at 4 days - FINAL REPORT Normal [facility] Comment on above: Performed By: #### B LDC #### [facility] [address] [place] [address] BLOOD CULTURE, BACTERIAL PATIENT: MIKO REECE LOCATION: [place] [address] BILL#: [id number] : 41 AGE: SEX: F ORDERED BY: DEBRA AVILES SOURCE: Blood COLLECTED: 03/21/23 20:35 ANTIBIOTICS AT [place].: RECEIVED : 03/22/23 10:07 SITE: R E S U L T S BLOOD CULTURE, BACTERIAL FINAL 03/26/23 11:42 No Growth at 1 days No Growth at 2 days No Growth at 3 days NO GROWTH at 4 days - FINAL REPORT Normal [facility] Comment on above: Performed By: #### B [facility] #### [facility] [address] [place] [address] CBC AND DIFFERENTIALon 03-21 % AUTOMATED IMMATURE GRAN 0.5 % Normal 0.0 - 0.9 [facility] Comment on above: Result Comment: Mayra ture Granulocyte Count (IG) includes promyelocytes, myelocytes and metamyelocytes but does not include bands. Percent differential counts (%) should be interpreted in the context of the absolute cell counts (cells/L). Performed By: #### C BCDF #### [facility] [address] [place] [address] Basophils (Bld) [#/Vol] 0.01 10*3/uL Normal 0.00 - 0.10 [facility] Comment on above: Performed By: #### C BCDF #### [facility] [address] [place] [address] Basophils/100 WBC (Bld) 0.1 % Normal 0.0 - 2.0 [facility] Comment on above: Performed By: #### C BCDF #### [facility] [address] [place] [address] Erythrocyte distribution width (RBC) [Ratio] 13.5 % Normal 11.5 - 14.5 [facility] Comment on above: Performed By: #### C BCDF #### [facility] [address] [place] [address] Hematocrit (Bld) [Volume fraction] 42.7 % Normal 36.0 - 46.0 [facility] Comment on above: Performed By: #### C BCDF #### [facility] [address] [place] [address] Hemoglobin (Bld) [Mass/Vol] 14.4 g/dL Normal 12.0 - 16.0 [facility] Comment on above: Performed By: #### C BCDF #### [facility] [address] [place] [address] Lymphocytes (Bld) [#/Vol] 0.55 10*3/uL Low 0.80 - 3.00 [facility] Comment on above: Performed By: #### C BCDF #### [facility] [address] [place] [address] Lymphocytes/100 WBC (Bld) 5.2 % Normal 13.0 - 44.0 [facility] Comment on above: Performed By: #### C BCDF #### [facility] [address] [place] [address] MCHC (RBC) [Mass/Vol] 33.7 g/dL Normal 32.0 - 36.0 [facility] Comment on above: Performed By: #### C BCDF #### [facility] [address] [place] [address] MCV (RBC) [Entitic vol] 91 fL Normal 80 - 100 [facility] Comment on above: Performed By: #### C BCDF #### [facility] [address] [place] [address] Monocytes (Bld) [#/Vol] 0.43 10*3/uL Normal 0.05 - 0.80 [facility] Comment on above: Performed By: #### C BCDF #### [facility] [address] [place] [address] Monocytes/100 WBC (Bld) 4.1 % Normal 2.0 - 10.0 [facility] Comment on above: Performed By: #### C BCDF #### [facility] [address] [place] [address] Neutrophils (Bld) [#/Vol] 9.49 10*3/uL High 1.60 - 5.50 [facility] Comment on above: Performed By: #### C BCDF #### [facility] [address] [place] [address] Neutrophils/100 WBC (Bld) 90.1 % Normal 40.0 - 80.0 [facility] Comment on above: Performed By: #### C BCDF #### [facility] [address] [place] [address] Platelets (Bld) [#/Vol] 180 10*3/uL Normal 150 - 450 [facility] Comment on above: Performed By: #### C BCDF #### [facility] [address] [place] [address] RBC 4.70 x10E12/L Normal 4.00 - 5.20 [facility] Comment on above: Performed By: #### C BCDF #### [facility] [address] [place] [address] WBC (Bld) [#/Vol] 10.5 10*3/uL Normal 4.4 - 11.3 [facility] Comment on above: Performed By: #### C BCDF #### [facility] [address] [place] [address] COMPREHENSIVE PANELon 2022 Albumin [Mass/Vol] 4.0 g/dL Normal 3.4 - 5.0 [facility] Comment on above: Performed By: #### B LDC #### [facility] [address] [place] [address] ALP [Catalytic activity/Vol] 93 U/L Normal 33 - 136 [facility] Comment on above: Performed By: #### B LDC #### [facility] [address] [place] [address] ALT [Catalytic activity/Vol] 28 U/L Normal 7 - 45 [facility] Comment on above: Result Comment: Елена ents treated with Sulfasalazine may generate falsely decreased results for ALT. Performed By: #### B LDC #### [facility] [address] [place] [address] Anion gap [Moles/Vol] 14 mmol/L Normal 10 - 20 [facility] Comment on above: Performed By: #### B LDC #### [facility] [address] [place] [address] AST [Catalytic activity/Vol] 32 U/L Normal 9 - 39 [facility] Comment on above: Performed By: #### B LDC #### [facility] [address] [place] [address] Bilirubin [Mass/Vol] 1.1 mg/dL Normal 0.0 - 1.2 [facility] Comment on above: Performed By: #### B LDC #### [facility] [address] [place] [address] Calcium [Mass/Vol] 8.8 mg/dL Normal 8.6 - 10.3 [facility] Comment on above: Performed By: #### B LDC #### [facility] [address] [place] [address] Chloride [Moles/Vol] 96 mmol/L Low 98 - 107 [facility] Comment on above: Performed By: #### B LDC #### [facility] [address] [place] [address] Creatinine [Mass/Vol] 0.90 mg/dL Normal 0.50 - 1.05 [facility] Comment on above: Performed By: #### B LDC #### [facility] [address] [place] [address] GFR/1.73 sq M.predicted among non-blacks MDRD (S/P/Bld) [Vol rate/Area] 65 mL/min/{1.73_m2} Normal >90 [facility] Comment on above: Result Comment: CALC ULATIONS OF ESTIMATED GFR ARE PERFORMED USING THE 2020 CKD-EPI STUDY REFIT EQUATION WITHOUT THE RACE VARIABLE FOR THE IDMS-TRACEABLE CREATININE METHODS. https://jasn.asnjournals.org/content/early//ASN.60823170 88 Performed By: #### B LDC #### [facility] [address] [place] [address] Glucose [Mass/Vol] 125 mg/dL High 74 - 99 [facility] Comment on above: Performed By: #### B LDC #### [facility] [address] [place] [address] HCO3 (Bld) [Moles/Vol] 29 mmol/L Normal 21 - 32 [facility] Comment on above: Performed By: #### B LDC #### [facility] [address] [place] [address] Potassium [Moles/Vol] 3.2 mmol/L Low 3.5 - 5.3 [facility] Comment on above: Performed By: #### B LDC #### [facility] [address] [place] [address] Protein [Mass/Vol] 7.7 g/dL Normal 6.4 - 8.2 [facility] Comment on above: Performed By: #### B LDC #### [facility] [address] [place] [address] Sodium [Moles/Vol] 136 mmol/L Normal 136 - 145 [facility] Comment on above: Performed By: #### B LDC #### [facility] [address] [place] [address] Urea nitrogen [Mass/Vol] 24 mg/dL High 6 - 23 [facility] Comment on above: Performed By: #### B LDC #### [facility] [address] [place] [address] CORONAVIRUS 2019 BY PCRon SARS-CoV-2 (COVID-19) RNA JOSÉ+probe Ql (Unsp spec) Not detected Normal Not Detected [facility] Comment on above: Result Comment: . This test has received FDA Emergency Use Authorization (EUA) and has been verified by [facility]. This test is only authorized for the duration of time that circumstances exist to justify the authorization of the emergency use of in vitro diagnostic tests for the detection of SARS-CoV-2 virus and/or diagnosis of COVID-19 infection under section 564(b)(1) of the Act, 21 U.S.C. 360bbb-3(b)(1), unless the authorization is terminated or revoked sooner. [facility] is certified under CLIA-88 as qualified to perform high complexity testing. Testing is performed in the [facility] laboratory located at [address] [place] [address]. SARS-CoV-2/Flu/RSV Multiplex Test: Fact sheet for providers: https://www.fda.gov/media/628986/download Fact sheet for patients: https://www.fda.gov/media/239144/download Performed By: #### B LDC #### [facility] [address] [place] [address] Lab Specimen Source Nasal, Nasopharyngeal Normal [facility] Comment on above: Performed By: #### B LDC #### [facility] [address] [place] [address] Covid 19 Resultson 3 SARS-CoV-2 (COVID-19) RNA JOSÉ+probe Ql (Unsp spec) NEGATIVE COVID-19 Test Coronaviruses are common world-wide and are the cause of many common colds. SARS-COV2 is a new coronavirus that began circulating worldwide in 2019 so we are calling it COVID-19. It has been estimated that four out of five patients with COVID-19 will recover at home without the need for medical attention. Symptoms of COVID-19 may include cough, fever, shortness of breath, loss of taste or smell and other flu-like symptoms including chills, sore muscles, sore throat, and headache. Severe illness is more common in older people and people with other health problems such as high blood pressure, obesity, and immune system problems. If the test is positive, you have COVID-19. You will be contacted by the ordering physicians office and instructed to remain on home isolation, in accordance with CDC guidelines. You may also be contacted by the [facility] to see if any of your close contacts may have been exposed to the virus and need to quarantine. If the test is negative, you likely do not have COVID-19 at this time, but you still may have a different illness that can spread to other people (like Influenza, or the Flu) and could still be at risk for getting COVID-19. We recommend that you stay away from other people to limit the spread of illness until your symptoms are improving and you are fever-free for 24 hours without the use of fever lowering medications such as acetaminophen or ibuprofen. No test is 100% accurate so if you are still concerned you may have COVID-19, talk to your doctor about the need to continue to stay away from others. Medicines Unless your provider told you not to use the following: Acetaminophen (Tylenol and others) is generally safe. Anti-inflammatory medications, such as Ibuprofen (Advil or Motrin) or Naproxen (Aleve) can also be used. Yvgl-nce-xvtawnp cough and cold medicines can be used according to the instructions on the package. Some wrkg-opc-mwiuvem medicines also contain acetaminophen. Make sure you are not taking more than your recommended dose. For those not hospitalized, there is no specific treatment available for this illness. Antibiotics do not treat Coronaviruses. Follow-Up Follow up with your doctor by scheduling a virtual visit or consider follow-up at one of our urgent care fever clinics. If you are having difficulty breathing, or are very weak and having difficulty standing, this is a medical emergency. Call 911 or have someone take you to the nearest emergency room immediately. If possible, wear a facemask. Additional guidance from the CDC for patients who tested POSITIVE for COVID-19 How to isolate: Isolate yourself in a specific room at home and limit your contact with others. Use a separate bathroom from other members of the household, when possible. Leave home only to get essential medical care. Do not go to work, school or public areas. Avoid using public transportation, ride-sharing, or taxis. Restrict contact with pets and other animals. If you must care for your pet or be around animals while you are sick, wash your hands before and after your interaction and wear a facemask. Make sure that shared spaces in the home have good airflow, such as by an air conditioner or an opened window, weather permitting. Personal Hygiene Procedures: Wear a face mask when in the same room as other people or pets. If a face mask interferes with your breathing, others should wear a mask when sharing space with you. Frequent hand-washing: wash your hands with soap and water for at least 20 seconds. If soap and water are not available, use alcohol-based hand street light servicer helper. Avoid touching your eyes, nose, and mouth with unwashed hands. Household Hygiene Procedures: Avoid sharing personal household items such as dishes, glassware, cups, eating utensils, towels or bedding with other people or pets in your home. After use, these items should be washed with soap and hot water. Disinfect all high-touch surfaces every day with antibacterial cleaning solutions such as Lysol wipes, bleach, cleansers, etc. High-touch surfaces include tabletops, doorknobs, bathroom fixtures, toilets, phones, keyboards, tablets and bedside tables. Immediately clean any surfaces that may have blood, poop or body fluids on them, using antibacterial cleaning solutions such as Lysol wipes, bleach, cleansers, etc. If clothing or bedding come into contact with blood, poop or body fluids, they should be washed immediately. Follow the directions on the laundry detergent and clothing labels but hot water is recommended when possible. Stopping home isolation precautions: If possible, consult your doctor before stopping home isolation precautions. According to the CDC, you can discontinue home isolation precautions when you have met both of these criteria: Your fever and respiratory symptoms have been gone for 24 melissa (more content not included)... Normal [facility] LACTATEon 03-21-2023 Lactate [Moles/Vol] 1.1 mmol/L Normal 0.4 - 2.0 [facility] Comment on above: Result Comment: Isabela puncture immediately after or during the administration of Metamizole may lead to falsely low results. Testing should be performed immediately prior to Metamizole dosing. Performed By: #### L ACT ####[address] [address] Lactate [Moles/Vol] 2.1 mmol/L High 0.4 - 2.0 [facility] Comment on above: Result Comment: Isabela puncture immediately after or during the administration of Metamizole may lead to falsely low results. Testing should be performed immediately prior to Metamizole dosing. Performed By: #### B LDC #### [facility] [address] [place] [address] Risk Screen - Adult Emergenc yon 03-21-2023 Risk Screen - Adult Emergency Preferred Language: Preferred Language: Preferred Language for Discussing Health Care (patient/designee)Persian Patient Preferred Pharmacy: Patient Preferred Pharmacy Statement: I have reviewed and updated the patient's preferred pharmacy selection for today's visit. Advanced Directives: Advance Directive/DNRunable to answer Family Violence Adult: Abuse Screen: Are you or have you been threatened or abused physically, emotionally, or sexually by anyoneunable to assess Clinical assessment: Are there any apparent signs of injuries/behaviors that could be related to abuse/neglectno Learning Assessment (Patient): Learning Assessment (Patient): Patient is Able to be Assessed for Learningno Reason Unable to Assessdevelopmental level Learning Assessment (Other Learner): Learning Assessment (Other Learner): Other learner availableno Pressure Injury/TB/Substance: Pressure Injury: Pressure Injury Present on Admissionno Do you have a coughno Smoking Statusnever smoker Alcohol Usedenies Drug Usedenies Admission Risk Screen: Significant IndicatorsComplete CAGE: CAGE: Is this an injured patient at a Trauma Center ([facility]/[place]): no Electronic Signatures: Gwen Linn (RN PRN) (Signed 21-Mar-2023 20:21) Authored: Preferred Language, Patient Preferred Pharmacy, Advanced Directives, Family Violence Adult, Learning Assessment (Patient), Learning Assessment (Other Learner), Pressure Injury/TB/Substance, Pressure Injury, CAGE Last Updated: 21-Mar-2023 20:21 by Gwen iLnn (RN PRN) Normal [facility] Triage - EDon 03-21-2023 Triage - ED Chart Review: ARRIVAL INFORMATION Mode of Arrival: ambulance Agency Name: [facility] CHIEF COMPLAINT MIKO REECE is a Female patient with a chief complaint of altered mental status. Other Complaints: To ED via EMS with report of altered mental status. Per EMS, patient fell one week ago, did not seek medical attention. states she hasn't been sleeping d/t right leg/hip pain. noted patient is confused today. On arrival, patient oriented to name only. Triage Date/Time: 21-Mar-2023 20:03 DESIREE: 3 Pain Rating (0-10): unable to assess Vital Signs: Temperature: 101.1F ( 38.3C) taken oral Blood Pressure: 156/78 Mean: Heart Rate: 111 Respiratory Rate: 20 Pulse Oximetry: 95% on room air, no respiratory support. Height: 5 feet 3.00 inches. 160.0 CM Weight: 126.7 pounds. Calculated 57.5 kg. Calculated BMI (kg/m2): 22.460 Calculated BSA (m2) 1.60 [place] Coma Scale: Best Eye Response: (E4) spontaneous Best Motor Response: (M6) obeys commands Best Verbal Response: (V5) oriented Juan Score: 15 Allergies: no Patient has homicidal thoughts: unable to assess Last Known Well: known Time Last Known Well Date/Time: 18-Mar-2023 Risk Screens Suicide Risk Screen [place] Risk Screen: unable to assess [place] Risk Screen Ken Fall Scale Screening Unable to assess unable to assess Interventions: Ken Fall Interventions: HIGH INTERVENTIONS *Low and Moderate Interventions Plus: * supervised toileting at all times TRAVEL HISTORY Travel History Coronavirus Screening: no exposure or symptoms Travel Exposure History: NO travel to International locations in the past 30 days PAIN Pain Scale Used: KIKA Pain Rating (0-10): unable to assess Past Medical History: Past Medical History Reviewedyes Electronic Signatures: Gwen Linn (RN PRN) (Signed 21-Mar-2023 20:13) Entered: Risk Screens, Pain, Travel History, Chart Review, Scores, Past Medical History Authored: Quick Triage, Risk Screens, Pain, Travel History, Chart Review, Scores, Past Medical History Last Updated: 21-Mar-2023 20:13 by Gwen Linn (RN PRN) Normal [facility] UA MICROSCOPICon 03-21-2023 AMORPHOUS CRYSTAL 3+ /HPF Abnormal [facility] Comment on above: Performed By: #### U AMIC ####[facility] [place] [address] BACTERIA 1+ /HPF Abnormal [facility] Comment on above: Performed By: #### U AMIC ####[facility] [place] [address] RBC 0-5 Normal 0-5 [facility] Comment on above: Performed By: #### U AMIC ####[facility] [place] [address] SQUAMOUS EPITH. CELLS FEW Normal [facility] Comment on above: Performed By: #### U AMIC ####[facility] [place] [address] WBC 5-20 Abnormal 0-5 [facility] Comment on above: Performed By: #### U AMIC ####[facility] [place] [address] URINALYSIS WITH CULTURE IF I NDICATEDon 03-21-2023 Appearance (U) HAZY Normal CLEAR [facility] Comment on above: Performed By: #### U ARFX #### [facility] [address] [place] [address] Bilirubin Ql (U) Negative Normal NEGATIVE [facility] Comment on above: Performed By: #### U ARFX #### [facility] [address] [place] [address] Color (U) YELLOW Normal STRAW,YELLOW [facility] Comment on above: Performed By: #### U ARFX #### [facility] [address] [place] [address] Glucose Ql (U) Negative Normal NEGATIVE [facility] Comment on above: Performed By: #### U ARFX #### [facility] [address] [place] [address] Hemoglobin Ql (U) SMALL(1+) Abnormal NEGATIVE [facility] Comment on above: Performed By: #### U ARFX #### [facility] [address] [place] [address] Ketones Ql (U) 5(Trace) Abnormal NEGATIVE [facility] Comment on above: Performed By: #### U ARFX #### [facility] [address] [place] [address] Leukocyte esterase Test strip Ql (U) Negative Normal NEGATIVE [facility] Comment on above: Performed By: #### U ARFX #### [facility] [address] [place] [address] Nitrite Ql (U) Negative Normal NEGATIVE [facility] Comment on above: Performed By: #### U ARFX #### [facility] [address] [place] [address] pH (U) 5.0 [pH] Normal 5.0 - 8.0 [facility] Comment on above: Performed By: #### U ARFX #### [facility] [address] [place] [address] Protein Ql (U) 30(1+) Abnormal NEGATIVE [facility] Comment on above: Performed By: #### U ARFX #### [facility] [address] [place] [address] Specific gravity (U) [Rel density] 1.016 Normal 1.005 - 1.035 [facility] Comment on above: Performed By: #### U ARFX #### [facility] [address] [place] [address] Urobilinogen (U) [Mass/Vol] 2.0 mg/dL High 0.0 - 1.9 [facility] Comment on above: Result Comment: Due to a manufacturing issue, low positive urobilinogen results may be falsely positive. Correlate with urine bilirubin and additional clinical/laboratory findings to assess the risk of hemolytic anemia or liver disease. If clinically indicated, repeat testing with an alternate method is available by contacting the laboratory within 24 hours. . Some pigments and medications may cause a false positive urobilinogen. Performed By: #### U ARFX #### [facility] [address] [place] [address] Lab Specimen Source Normal [facility] Comment on above: Performed By: #### U ARFX #### [facility] [address] [place] [address] Performed By: #### U AMIC ####[address] [address] URINE CULTURE,BACTERIALon URINE CULTURE,BACTERIAL PATIENT: MIKO REECE LOCATION: [address]#: [id number] : 41 AGE: SEX: F ORDERED BY: DEBRA AVILES SOURCE: URINE COLLECTED: 03/21/23 20:13 ANTIBIOTICS AT [facility].: RECEIVED : 03/22/23 10:42 SITE: R E S U L T S URINE CULTURE,BACTERIAL FINAL 03/23/23 10:09 NO GROWTH Normal [facility] Comment on above: Performed By: #### U RINC #### [facility] [address] [place] [address] PT Progress Noteon 3 PT Progress Note Therapy Diagnosis Assessed Difficulty walking (719.7) (R26.2) Hip stiffness (719.55) (M25.659) Left hip pain (719.45) (M25.552) Plan Progress with POC, as tolerated. Assessment Some difficulty with ER stretch. Patient was slightly unsteady during agility ladder trials. She was able to complete all exercise with no increase in pain. Response to treatment: improved joint mobility/ROM and improved knowledge and understanding of condition. Patient was able to complete today's treatment with some difficulty. Insurance Insurance reviewed Visit number: 3 Subjective Patient reports:. Patient states she has no pain today, feels slightly unsteady on her feet. She had a bout of illness last week and has not done any of her exercises at home. Notes stiffness in B hips. Home program performing as directed: No. Precautions: Fall Risk: low Treatment Time in clinic started at 9:00 Time in clinic ended at 9:46 Total time in clinic is 46 minutes. Therapeutic exercise (36552): timed minutes 46, units 3 . phyiostep x10 min, chandler hip and back ext 3x10, hip ER stretch 5x15 sec, side lying hip abd 2x10, bridges 3x10, agility ladder drills x4 patterns. 'Scores and Scales' Signatures Electronically signed by : Clair Lagnua SHIFT LAB TECHNICIAN; Mar 14 2023 9:45AM EST (Author) Electronically signed by : Keegan Marquez PT; Mar 14 2023 12:45PM EST (Author) Normal [facility] Progress Noteon 3 PT Progress Note Therapy Diagnosis Assessed Hip stiffness (719.55) (M25.659) Difficulty walking (719.7) (R26.2) Plan Progress with POC, as tolerated. Assessment Noting patient to be limited with B ER of hips. Completing all interventions well. Response to treatment: improved joint mobility/ROM, improved strength, improved flexibility and improved knowledge and understanding of condition. Insurance Insurance reviewed Visit number: 2 Subjective Patient reports:. Patient states on Monday she was feeling good and walked about a mile and a half. [place] very sore the next day with sharp pains up to 8/10. Today is feeling better, but still having soreness in L groin region. Home program performing as directed: Yes. Treatment Time in clinic started at 125 pm Time in clinic ended at 210 pm Total time in clinic is 45 minutes. Therapeutic exercise (17689):. phyiostep x10 min, chandler hip and back ext 3x10, hip ER stretch 5x15 sec, side lying hip abd 2x10, bridges 3x10, agility ladder drills x4 patterns. 'Scores and Scales' Signatures Electronically signed by : Chaya Millan SHIFT LAB TECHNICIAN; Mar 07 2023 2:14PM EST (Author) Electronically signed by : Keegan Marquez, PT; Mar 07 2023 4:30PM EST (Author) Normal [facility] PT Initial Evaluationon 02-07 PT Initial Evaluation Therapy Diagnosis Assessed Hip stiffness (719.55) (M25.659) Difficulty walking (719.7) (R26.2) Plan of Care Goals: Goals set and discussed today. By discharge MIKO REECE will achieve the following goals: Flexibility: Patient will be I in HEP to maintain flexibility gained in clinic Gait/Locomotion: Ambulate >10 minutes with no hip pain >1/10 to allow community ambulation with comfort. Pain: Decrease pain to <=1/10 for quality of life improvement during ADL's Range Of Motion/Joint Mobility: Increase bilateral hip ER to >=60, abduction >=30, and extension to >=20 to facilitate increase ease of car transfers and push off during push off.. Strength: Increase hip girdle MMT to 5/5 to allow return to full community based ambulatory activities. Planned interventions include: education/instruction, gait training, home program, neuromuscular re-education, therapeutic activities and therapeutic exercises. Frequency and duration: 1 time(s) a week, for 4 weeks. Potential to achieve rehab goals is good Plan of care was developed with input and agreement by the patient. Assessment Patient referred by ortho for soft tissue balancing 2/2 pain associated with decreased R hip ROM and adaptive gait changes. She will benefit from clinic based instruction with strong HEP component. Clinical Presentation: Stable and/or uncomplicated characteristics. Level of Complexity: low Problem List: activity limitations, flexibility, gait/locomotion, pain, range of motion/joint mobility and strength. Reason For Visit Initial Evaluation. Referred by: Swati Ku [employer] Adult Risk Screening There are no spiritual/cultural practices/values/needs that are important to know Initial Fall Risk Screening: MIKO has not fallen in the last 6 months. MIKO does not have a fear of falling. She does not need assistance with sitting, standing or walking. Does not need assistance walking in her home. She does not need assistance in an unfamiliar setting. The patient is not using an assistive device. Pain Scale: On a scale of 0 to 10, the patient rates the pain at 3. Please identify location of pain: R inguinal. Pain Quality: aching. The pain makes it hard for the patient to do these things: walking. Do you feel UNSAFE? The patient feels safe in the home. Depression/Suicide Screening: She does not have a risk of suicide. Insurance Insurance reviewed Visit number: 1 35$ Onset Date: 2021 Subjective Mechanism of Injury:. Patient referred by ortho 2/2 R inguinal and anterior thigh pain. Also some occasional R lumbar pain and stiffness of insidious onset. Xrays positive for mild R hip OA, no issues noted with the R TKR done 6-7 years ago. Patient referred for soft tissue rebalancing. Little improvement with chiropractic treatment of lumbar spine. Pain Exacerbating Factors: stairs, walking and weightbearing. Pain Relieving Factors: stretching. Medical Screening: Reviewed medical history form with patient and medical screening assessed. Precautions: Fall Risk: low Functional Assessment Prior level of function: I. Functional limitations: walking and stairs . Patient stated goal(s) for treatment include: relieving pain , increasing mobility , walking with a normal gait , reducing symptoms , reducing/preventing future occurrences and returning to regular activity levels . Work Status: retired. Current Status: unchanged. Living Environment: reviewed and no concern. Objective Ortho ROM / Joint Mobility (Range of Motion in degrees) Hip: (Barlow = P! Denotes Pain with Movement) Extension: R Active 5, L Active 8. External Rotation: R Active 46, L Active 50. Internal Rotation: R Active 12, L Active 18. Knee: (Barlow = P! Denotes Pain with Movement) Knee within normal limits active on the right side. Knee motion within normal limits active on the left. Foot and Ankle: (Barlow = P! Denotes Pain with Movement) Foot and Ankle within normal limits active on the right side. Foot and Ankle motion within normal limits active on the left. Flexibility Right: hip flexors tight, quadriceps tight, hamstrings hypermobile. Left: hip flexors tight, quadriceps tight, hamstrings hypermobile. Gait / Mobility Gait: Amb to dept without AD. Noted decrease lumbar rotation and decreased hip extension at toe off R>L. Deviation: decrease push-off Strength Hip: (Barlow: P! Denotes Pain with Movement) Extension: 3+/5 on right and 4-/5 on left. Abduction: 4-/5 on right and 4-/5 on left. Knee: (Barlow: P! Denotes Pain with Movement) Knee strength was within normal limits bilaterally. Foot and Ankle: (Barlow: P! Denotes Pain with Movement) Foot and ankle strength was within normal limits bilaterally. Neurological Neurological Myotomal Testing No focal weakness. Neurological Dermatomal Testing No sensory abnormality. Balance and Coordination Static Standing Balance: right single (more content not included)... Normal [facility] IO UA (nonautomated w/o micr oscopy)on 09-21-2021 Protein (U) [Mass/Vol] Negative GW-Psglc-Vit tor Work Phone: IO UA (nonautomated w/o microscopy) Negative VB-Enofp-Rvi tor Work Phone: LMPon 09-21-2021 Last menstrual period start date post menopausal HY-Zoxlr-Tcp tor Work Phone: CNOVon 12-31-2018 CNOV Office Visit (RMRIHL ) -- BRITTANIEMIKO SUAREZ ([id number]) 1945 F Date Time Provider Department 12/31/18 1:00 PM [facility] OPEN (OPEN/1T)RMRIHL During your visit today, we recorded the following information about you: Colette Woodall Tech 12/31/2018 1:14 PM Signed Radiology Service Progress Note PATIENT NAME: Miko Reece DATE OF SERVICE: December 31, 2018 TIME: 1:13 PM PATIENT IDENTITY VERIFICATION COMPLETED USING TWO (2) METHODS: Patient confirmed name verbally and ID band matches.. PATIENT GENDER DATA: Female. status: : No status: NO. PATIENT RELEVANT IMPLANT DATA REVIEWED: Yes RADIOLOGY DEPARTMENT: MR; Exam(s) Completed: Spine: Lumbar spine PERIPHERAL IV DATA: Not applicable SIGNED BY: Colette Woodall December 31, 2018 1:13 PM Referring Provider: DAI MOY [[id number]] Allergies As of Date: 12/31/2018 Noted Allergy Reaction PENICILLINS 08/12/2013 16 - Unknown Comments: Pt had when wisdom teeth were removed, can't remember the reaction. Date Reviewed: 12/25/2018 Reviewed by: Dai Moy - Fully Assessed Reason for Visit: Radiology MRI [1487] Visit Diagnosis:Spinal stenosis of lumbar region without neurogenic claudication [M48.061] Order(s):MRI LUMBAR SPINE WO IVCON [[id number]] Order #: [id number] #:[id number] Prescriptions as of 12/31/2018 Sig: IBUPROFEN 800 MG TABLET Take 800 mg by mouth twice da* AMLODIPINE 5 MG-BENAZEPRIL 10* Take 1 capsule by mouth once * Problem List As Of Date 12/31/2018 Noted Resolved Special screening for malignant neoplasms, colo*INVALID FOR* Knee pain, right [M25.561] INVALID FOR* Osteoarthritis of right knee [M17.11] INVALID FOR* Iliotibial band syndrome of left side [M76.32] INVALID FOR* Osteoarthritis of left knee [M17.12] INVALID FOR* Acute lateral meniscus tear of right knee [S83.*INVALID FOR* Primary osteoarthritis of right knee [M17.11] INVALID FOR* Osteoarthrosis, localized, primary, knee [M17.1*INVALID FOR* Status post total right knee replacement using *INVALID FOR* Chronic bilateral low back pain with left-sided*INVALID FOR* Osteopenia of lumbar spine [M85.88] INVALID FOR* 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] INVALID FOR* Spinal stenosis of lumbar region without neurog*INVALID FOR* Encounter Status:Closed by FERN CONDON on 12/31/18 [facility] MRI LUMBAR SPINE WO IVCONon 12-31-2018 MRI LUMBAR SPINE WO IVCON * * *Final Report* * * DATE OF EXAM: Dec 31 2018 1:08PM [facility] 0303 - MRI LUMBAR SPINE WO IVCON / PROCEDURE REASON: Spinal stenosis of lumbar region without neurogenic claudication * * * * Physician Interpretation * * * * RESULT: EXAMINATION: MRI LUMBAR SPINE WO IVCON CLINICAL HISTORY: Low back pain radiating to the left groin TECHNIQUE: Routine lumbosacral spine MR protocol without gadolinium. MQ: [id number] COMPARISON: None. RESULT: Counting reference: Lumbosacral junction. For the purposes of this report, Alignment: Alignment is anatomic. Bone marrow signal/fracture: Chronic mild anterior wedge deformity and superior endplate concavity of T12. No evidence of a focal marrow replacement process. No other distinct fracture deformities. Conus: The conus is within normal limits of signal intensity and morphology. Paraspinal soft tissues: Paraspinal soft tissues are within normal limits. Lower thoracic spine: Visualized lower thoracic canal and foramina are patent. T12-L1: Canal and foramina are patent. L1-L2: Canal and foramina are patent. L2-L3: Mild disc height loss and bulging. Mild right greater than left subarticular zone encroachment and otherwise patent spinal canal. Minimal bilateral foraminal narrowing. L3-L4: Mild disc height loss and bulging and mild facet hypertrophy. Mild bilateral subarticular zone encroachment and otherwise patent spinal canal. Mild bilateral foraminal stenosis. L4-L5: Minimal disc pseudobulging and moderate facet hypertrophy. Mild bilateral subarticular zone encroachment and otherwise patent spinal canal. No significant foraminal stenosis. L5-S1: Facet hypertrophy. No significant spinal canal or foraminal stenosis. Sacrum and iliac wings: The visualized sacrum and iliac wings are within normal limits. IMPRESSION: Degenerative changes notable for multilevel subarticular zone encroachment, as well as mild bilateral foraminal stenosis at L3-4. No high-grade spinal canal stenosis. Anatomic Thoracic/Lumbar Variant: None. L4-5 is considered the level of the iliac crest and assume there are 5 lumbar-type vertebrae. Transcribed Using Voice Recognition Transcribe Date/Time: Dec 31 2018 1:43P Dictated by: CECILE FELICIANO MD This examination was interpreted and the report reviewed and electronically signed by: CECILE FELICIANO MD on Dec 31 2018 1:54PM EST [id number] [facility] PROGRESSon 12-31-2018 Protein mass conc HNO ID: [id number] Author: Colette Woodall (Tech) Service: ? Author Type: Solution Coordinator Type: Progress Notes Filed: 12/31/2018 1:14 PM Note Text: Radiology Service Progress Note PATIENT NAME: Miko Reece DATE OF SERVICE: December 31, 2018 TIME: 1:13 PM PATIENT IDENTITY VERIFICATION COMPLETED USING TWO (2) METHODS: Patient confirmed name verbally and ID band matches.. PATIENT GENDER DATA: Female. status: : No status: NO. PATIENT RELEVANT IMPLANT DATA REVIEWED: Yes RADIOLOGY DEPARTMENT: MR; Exam(s) Completed: Spine: Lumbar spine PERIPHERAL IV DATA: Not applicable SIGNED BY: Colette Woodall December 31, 2018 1:13 PM [facility] Vital Signs Date Time Vital Sign Value Performing Clinician Facility 11-20-2024 10:17-0500 Body height 160 cm Lety Verdun DO Work Phone: [facility] 11-20-2024 10:17-0500 Body mass index (BMI) [Ratio] 23.03 kg/m2 Lety Verdun DO Work Phone: [facility] 11-20-2024 10:17-0500 Body weight 58.97 kg Lety Verdun DO Work Phone: [facility] 10-30-2024 13:58-0500 Body height 160 cm Lety Verdun DO Work Phone: [facility] 10-30-2024 13:58-0500 Body mass index (BMI) [Ratio] 23.03 kg/m2 Lety Verdun DO Work Phone: [facility] 10-30-2024 13:58-0500 Body weight 58.97 kg Lety Verdun DO Work Phone: [facility] 01-24-2024 10:05-0400 Body height 152.4 cm Arthur Jordan MD Work Phone: [facility] 01-24-2024 10:05-0400 Body mass index (BMI) [Ratio] 25.19 kg/m2 Arthur Jordan MD Work Phone: [facility] 01-24-2024 10:05-0400 Body weight 58.51 kg Arthur Jordan MD Work Phone: [facility] 01-24-2024 10:05-0400 Diastolic blood pressure 68 mm[Hg] Arthur Jordan MD Work Phone: [facility] 01-24-2024 10:05-0400 Systolic blood pressure 168 mm[Hg] Arthur Jordan MD Work Phone: [facility] 03-23-2023 14:00-0400 Body temperature 98.42 [degF] Edjose Arteaga Other Phone: [facility] 03-23-2023 14:00-0400 Diastolic blood pressure 57 mm[Hg] Edward Arteaga Other Phone: [facility] 03-23-2023 14:00-0400 Heart rate 110 /min Edward Arteaga Other Phone: [facility] 03-23-2023 14:00-0400 Respiratory rate 19 /min Edward Arteaga Other Phone: [facility] 03-23-2023 14:00-0400 SaO2% (BldA) [Mass fraction] 94 % Edward Arteaga Other Phone: [facility] 03-23-2023 14:00-0400 Systolic blood pressure 117 mm[Hg] Edward Arteaga Other Phone: [facility] 02-15-2023 12:50-0400 Body height 160 cm Lety Verdun DO Work Phone: [facility] 02-15-2023 12:50-0400 Body weight 58.97 kg Lety Verdun DO Work Phone: [facility] 09-21-2021 13:28-0500 Body height 160.02 cm Arsenio Arteaga Work Phone: SL-Lxeby-Jlhlzf Work Phone: 09-21-2021 13:28-0500 Body mass index (BMI) [Ratio] 23.03 kg/m2 Arsenio Marillo Work Phone: AC-Uazzy-Uiqhfq Work Phone: 09-21-2021 13:28-0500 Body surface area Derived from formula 1.61 m2 Arsenio Tatum Arteaga Work Phone: LW-Cimye-Svxxpq Work Phone: 09-21-2021 13:28-0500 Body weight 58.97 kg Arsenio Marillo Work Phone: HP-Ujzdy-Bjjiki Work Phone: 09-21-2021 13:28-0500 Diastolic blood pressure 70 mm[Hg] Arsenio Marillo Work Phone: QP-Nqjqz-Qvgtjq Work Phone: 09-21-2021 13:28-0500 Systolic blood pressure 168 mm[Hg] Arsenio Marillo Work Phone: WA-Euagm-Utftdq Work Phone: 09-21-2021 13:28-0500 3 1 Arsenio Marillo Work Phone: AV-Hiljy-Pcgdfa Work Phone: Comment on above: GRAV PARA 09-19-2020 14:32-0500 BMI (Body Mass Index) 23.74 kg/m2 Arthur Almanzauja VF-Wbxrq-Syynbgpnm 3315 Work Phone: 09-19-2020 14:32-0500 Body Temperature 97.3 [degF] Arthur Ita AK-Foflw-Cmixzy andra 3315 Work Phone: 09-19-2020 14:32-0500 Body weight 60.78 kg Arthur Ita TH-Cmypj-Aklzxla la 3315 Work Phone: 09-19-2020 14:32-0500 BP Diastolic 77 mm[Hg] Arthur Jordan QQ-Cguzo-Vvetbsk la 3315 Work Phone: 09-19-2020 14:32-0500 BP Systolic 171 mm[Hg] Arthur Jordan PY-Ksgao-Fefbmuw la 3315 Work Phone: 09-19-2020 14:32-0500 BSA (Body Surface Area) 1.63 m2 Arthur Jordan RG-Bzntj-Qypwghcud 3315 Work Phone: 09-19-2020 14:32-0500 Height 160.02 cm Arthur Jordan MB-Eldji-Iddkiyh la 3315 Work Phone: 09-19-2020 14:32-0500 Pulse (Heart Rate) 95 /min Arthur Jordan MP-Ahuja-Asht abula 3315 Work Phone: 08-29-2020 13:42-0500 BMI (Body Mass Index) 24.27 kg/m2 Edelmira Jimenezin IG-Urwsj-Rbtddirhr 3315 Work Phone: 08-29-2020 13:42-0500 Body Temperature 97.3 [degF] Edelmira Jimenezin HH-Njpef-Oltrgv andra 3315 Work Phone: 08-29-2020 13:42-0500 Body weight 62.14 kg Edelmira Jimenezin VE-Whfkc-Unquahl la 3315 Work Phone: 08-29-2020 13:42-0500 BP Diastolic 65 mm[Hg] Edelmira Tabin MC-Quqtq-Xqyvdrd la 3315 Work Phone: 08-29-2020 13:42-0500 BP Systolic 150 mm[Hg] Edelmira Tonyin GE-Fbmeh-Zcucqbc la 3315 Work Phone: 08-29-2020 13:42-0500 BSA (Body Surface Area) 1.65 m2 Edelmira Tabin UD-Oukrj-Dwnvuqrup 331 Work Phone: 08-29-2020 13:42-0500 Height 160.02 cm Edelmira Barton MP-Ahuja-Ashtabu la 3317 Work Phone: 08-29-2020 13:42-0500 Pulse (Heart Rate) 73 /min Edelmira Barton MP-Ahuja-Asht abula 3313 Work Phone: Encounters Encounter Date Encounter Type Care Provider Facility Start: 11-20-2024 End: 11-20-2024 Patient encounter procedure Lety Whitmann DO Work Phone: [facility] Orthopaedic Comment on above: Status post total ri ght knee replacement using cement (Primary Dx); Contusion of right knee, initial encounter Start: 11-20-2024 End: 11-20-2024 ambulatory LETY BENAVIDES Facility:[id number] Start: 11-01-2024 End: 11-01-2024 Emergency department patient visit ARSENIO RUTLEDGEO Facility:[id number] Start: 11-01-2024 End: 11-01-2024 Telephone encounter Swati Ku APRN.[employer] Work Phone: Orthopaedics Comment on above: Patient Question Start: 10-30-2024 End: 10-30-2024 ambulatory LETY BENAVIDES Facility:[facility] Start: 10-30-2024 End: 10-30-2024 Patient encounter procedure Lety Whitmann DO Work Phone: Orthopaedics Comment on above: Status post total ri ght knee replacement using cement (Primary Dx); Contusion of right knee, initial encounter Start: 10-23-2024 End: 10-23-2024 ambulatory [facility] Start: 10-23-2024 End: 10-23-2024 Subsequent hospital visit by physician Con X-Ray 2 [facility] Comment on above: Right knee pain Start: 03-05-2024 End: 03-05-2024 ambulatory ARSENIO UNGER [facility] Start: 01-24-2024 End: 01-24-2024 ambulatory [facility] Ambulatory Start: 01-24-2024 End: 01-24-2024 Office outpatient visit 25 minutes Arthur Jordan MD Work Phone: [facility] Comment on above: Midline cystocele (P rimary Dx); Urine frequency; Constipation, unspecified constipation type Start: 09-19-2023 End: 09-19-2023 ambulatory [facility] Ambulatory Start: 09-19-2023 End: 09-19-2023 Office outpatient new 30 minutes Sapphire Franco MD Work Phone: [facility] Comment on above: Presbycusis of both ears (Primary Dx) Start: 08-28-2023 End: 08-28-2023 ambulatory [facility] Ambulatory Start: 03-27-2023 End: 03-28-[address] Thor James Facility: Start: 03-26-2023 End: 03-27-2023 Emergency department patient visit MD LAURENT SENA Facility:[facility] Start: 03-21-2023 End: 03-23-2023 Evaluation and management of inpatient Janee Mascorro Rm [id number] 01 Tele Start: 03-21-2023 End: 03-22-[address] Arsenio Arteaga Facility:[facility] Start: 03-14-2023 Patient encounter procedure rAsenio Arteaga Work Phone: [facility] Work Phone: Start: 03-14-[address] Arsenio Arteaga Facility:[facility] Start: 03-07-2023 Patient encounter procedure Arsenio Arteaga Work Phone: [facility] Work Phone: Start: 03-07-[address] Arsenio Arteaga Facility:[facility] Start: 02-28-[address] Arsenio Arteaga Facility:[facility] Start: 02-17-2023 Telephone encounter Swati Ku APRN.[employer] Work Phone: [facility] Comment on above: Orders Start: 02-15-2023 End: 02-15-2023 Patient encounter procedure Lety Benavides DO Work Phone: Orthopaedics Comment on above: Arthritis of hip (Pr imary Dx); Status post total right knee replacement using cement Start: 09-21-2021 Chart Update Arsenio prakash Work Phone: [place] Work Phone: Start: 09-19-2020 Patient encounter procedure Arthur Jordan MA-Iimlg-Ljxgymnza 3315 Work Phone: Start: 08-29-2020 Patient encounter procedure Edelmira Tabin FC-Uqdsk-Xfcirxydo 3315 Work Phone: Start: 01-30-2019 Patient encounter procedure Edelmira Tabin RY-Vigmx-Zsitklqof 3315 Work Phone: Start: 01-23-2019 Patient encounter procedure Edelmira Tabin AW-Kgayr-Acenxcpiu 3315 Work Phone: Start: 01-16-2019 Patient encounter procedure Edelmira Tabin CU-Hfpck-Qiyafrtad 3315 Work Phone: Start: 01-03-2019 Patient encounter procedure Edelmira Tabin BF-Dfulg-Lvtuurzep 3315 Work Phone: Start: 12-31-2018 End: 12-31-2018 Patient encounter procedure [facility] Start: 10-28-2017 Ambulatory Edelmira Kaci Humphrey acility:[id number] Procedures Date Procedure Procedure Detail Performing Clinician Start: 11-20-2024 Follow-up visit Follow Up LETY VE RDUN Start: 01-24-2024 POCT UA (NONAUTOMATED) CECILE FERRO Start: 01-24-2024 Urnls dip stick/tabl et rgnt non-auto w/o micrscp Arthur Jordan MD Work Phone: Start: 08-28-2023 COMPREHENSIVE HEARING TEST CECILE FERRO Start: 03-21-2023 End: 03-21-2023 EKG impression Debra Aviles Start: 08-25-2020 MG Breast screening Lindy lynnesingh Barton Plan of Treatment Date Care Activity Detail Author Start: 03-28-2026 Diabetes Screening Diabetes Screenin g [facility] Start: 11-20-2024 End: 11-20-2024 Patient encounter procedure 11/20/2024 10:30 AM EST Office Visit Orthopaedics [address], [place] [id number] Lety Benavides DO [address] [place] [address] est pt 3 wk f/u Orthopaedics Comment on above: est pt 3 wk f/u Start: 10-09-2024 Advance Directive Discussion Advance Directive Discussion [facility] Start: 06-09-2024 COVID-19 Vaccine ( season) COVID-19 Vaccine ( season) [facility] Start: 06-09-2024 Covid-19 Vaccine ( season) Covid-19 Vaccine ( season) [facility] Start: 06-09-2024 Influenza vaccination U [facility] Start: 06-09-2023 COVID-19 Vaccine ( season) COVID-19 Vaccine ( season) [facility] Start: 06-09-2023 Influenza vaccination [facility] Start: 03-22-2023 End: 03-22-2024 [facility] Start: 03-21-2023 JORDANA, Provider : Keegan Marquez, Status: Pen, Time: 2:00 PM JORDANA, Provider: Keegan Marquez, Status: Pen, Time: 2:00 PM [facility] Work Phone: Start: 03-14-2023 [email or web address], Provider : Chaya Millan, Status: Pen, Time: 9:00 AM PTFUADULT4, Provider: Chaya Millan, Status: Pen, Time: 9:00 AM [facility] Work Phone: Start: 10-09-2022 ADVANCE DIRECTIVE DISCUSSION ADVANCE DIRECTIVE DISCUSSION [facility] Start: 10-09-2022 DEPRESSION ASSESSMENT DEPRESSION ASS ESSMENT [facility] Start: 06-18-2021 COVID-19 VACCINE (3 - Booster for Pfizer series) COVID-19 VACCINE (3 - Booster for Pfizer series) [facility] Start: 06-18-2021 COVID-19 Vaccine (3 - Pfizer series) COVID-19 Vaccine (3 - Pfizer series) [facility] Start: 07-13-2019 DIABETES SCREEN DIABETES SCREEN [facility] Start: 2018 RSV High Risk: (Elde rly (60+) or Population) (1 - 1-dose 75+ series) RSV High Risk: (Elderly (60+) or Population) (1 - 1-dose 75+ series) [facility] Start: 2018 RSV Vaccine (1 - 1-d ose 75+ series) RSV Vaccine (1 - 1-dose 75+ series) [facility] Start: 01-07-2008 BONE DENSITY BONE DENSITY [facility] Start: 01-07-2008 Pneumococcal Vaccine : 65+ Years (1 - PCV) Pneumococcal Vaccine: 65+ Years (1 - PCV) [facility] Start: 01-07-2008 Pneumococcal Vaccine : 65+ Years (1 of 1 - PCV) Pneumococcal Vaccine: 65+ Years (1 of 1 - PCV) [facility] Start: 01-07-2008 PNEUMOCOCCAL: 65+ (1 - PCV) PNEUMOCOCCAL: 65+ (1 - PCV) [facility] Start: 01-07-2008 Screening for osteoporosis Bone Density Screening [facility] Start: 1993 Pneumococcal vaccination Pneumococcal Vaccine (1 of 1 - PCV) [facility] Start: 1993 Pneumococcal Vaccine : 50+ (1 of 1 - PCV) Pneumococcal Vaccine: 50+ (1 of 1 - PCV) [facility] Start: 1993 SHINGRIX VACCINE (1 of 2) SHINGRIX VACCINE (1 of 2) [facility] Start: 1993 Zoster Vaccines (1 o f 2) Zoster Vaccines (1 of 2) [facility] Start: 03-31-1965 DTaP/Tdap/Td Vaccine s (1 - Tdap) DTaP/Tdap/Td Vaccines (1 - Tdap) [facility] Start: 1962 Urine microalbumin profile [facility] Start: 1961 Anxiety Screening Anxiety Screening [facility] Start: 1961 Depression Screening Depression Scre ening [facility] Start: 1943 Lipid panel Lipid Panel [facility] Start: 1943 Medicare Annual Wellness Visit Medicare Annual Wellness Visit (AWV) [facility] End: 10-23-2024 XR Knee - right 4 Views [facility] Service Are a Work Phone: Comment on above: Once for 1 Occurrenc es starting 10/23/2024 until 10/23/2024 Payers Date Payer Category Payer Medicare (Managed Care) [id number]. [id number] 2023 Medicare [id number] 2021 Medicare [id number] 2021 Unknown 2021 Unknown [id number] 1943 Unknown [id number] 1943 Unknown [id number] 1943 Unknown [id number] 2. [id number] 1943 Unknown [id number] 2.16 [id number] 1943 Unknown [id number] 2. [id number] 1943 Unknown [id number] 2. [id number] 1943 Unknown [id number] [id number] 1943 Unknown [id number] 2.16.8 [id number] 1943 Unknown [id number] 2.16.8 [id number] 1943 Unknown [id number] 2.16.8 [id number] 1943 Unknown [id number] 2.16.8 [id number] 1943 Unknown [id number] 2.16.8 [id number] Medicare [id number] Social History Date Type Detail Facility Assertion Tobacco smoking consumption unknown (finding) XU-Toekw-Yiqaqalwd 4154 Work Phone: Start: 11-12-2013 End: 09-19-2023 Tobacco smoking status SDIS Never smoked tobacco [facility] Start: 11-12-2013 Tobacco use and exposure Smokeless tobacco non-user [facility] Start: 02-15-2023 End: 11-20-2024 Alcohol intake Current drinker of alcohol (finding) [facility] Start: 02-15-2023 End: 11-20-2024 Alcohol intake [facility] Start: 08-12-2013 Alcohol Comment a small glass of wine every day or so [facility] Start: 1945 Sex Assigned At Not on file [facility] Tobacco smoking consumption unknown [facility] Start: 09-19-2023 Tobacco use and exposure User of smokeless tobacco [facility] Work Phone: Start: 02-15-2023 End: 09-19-2023 Gender identity Not on file [facility] Work Phone: Start: 09-09-2023 End: 10-23-2024 Exposure to SARS-CoV-2 (event) Not sure [facility] National Score (1-100), lower number is lower risk 84 [facility] Medical Equipment Procedure Code Equipment Code Equipment Origin al Text Equipment Identifier Dates Cement Smartset Bone Medium Viscosity 40gm - [id number] Start: 07-11-2016 Dnr-Oc-U-Kind Implant - [id number] Start: 07-11-2016 Comment on above: Description: joie e retaining Bzk-Az-W-Kind Implant - [id number] Start: 07-11-2016 Comment on above: Description: patella Mzu-Ws-X-Kind Implant - [id number] Start: 07-11-2016 Comment on above: Description: tibia Ldj-Ex-X-Kind Implant - [id number] Start: 07-11-2016 Comment on above: Description: femur Functional Status Date Assessment Result Facility 07-14-2016 Are you deaf, or do you have serious difficulty hearing No 07/14/2016 5:03 PM Jami Panchal, OLGA No [facility] 07-14-2016 Are you blind, or do you have serious difficulty seeing, even when wearing glasses No 07/14/2016 5:03 PM Jami Panchal, RN No [facility] 07-14-2016 Do you have serious difficulty walking or climbing stairs Yes 07/14/2016 5:03 PM Jami Panchal, RN Yes [facility] 07-14-2016 Do you have difficul ty dressing or bathing Yes 07/14/2016 5:03 PM Jami Panchal, RN Yes [facility] 07-14-2016 Because of a physica l, mental, or emotional condition, do you have difficulty doing errands alone such as visiting a physician's office or shopping Yes 07/14/2016 5:03 PM Jami Panchal, RN Yes [facility] Functional observable [facility] NEGATED: Highlighted row Functional performance Functional status health issues are not documented Disease Lizzy 2264 Work Phone: Mental Status Date Assessment Result Facility 03-22-2023 Cognitive functi ons [id number] [facility] 07-14-2016 Because of a physical, mental, or emotional condition, do you have serious difficulty concentrating, remembering, or making decisions Yes 07/14/2016 5:03 PM EDT Jami Fink, RN Yes [facility] NEGATED: Highlighted row Cognitive function [Interpretation] Cognitive status health issues are not documented Disease Lizzy [id number] Work Phone: Clinical Notes 02-15-2023 to 11-20-2024 Lety Benavides DO - 11/20/2024 10:17 AM ESTTelephone Encounter - Tessa Roland MA - 11/01/2024 1:34 PM ESTTelephone Encounter - Tessa Roland MA - 11/01/2024 1:34 PM EST Note Date & Type Note Facility 11-20-2024 Note HNO ID: [id number] Author: LETY BENAVIDES DO Service: ? Author Type: Physician Type: Progress Notes Filed: 11/20/2024 11:14 Note Text: Miko is here to 3 weeks to follow-up on her right knee sprain. She is doing well. She states she is resumed most of her normal activities. At this point she has unrestricted range of motion of her knee with no strength deficits. There is no gross instability of her prosthesis. Her right lower extremities grossly neurovascularly intact. At this point she can perform activities to her tolerance return to the office as needed. Assessment: Right knee contusion with history of right total knee arthroplasty I spent a total of 10 minutes on the date of the service which included preparing to see the patient, umlx-wg-fkew patient care, completing clinical documentation, performing a medically appropriate examination, and counseling and educating the patient/family/caregiver. [facility] 11-20-2024 History of Present illness Narrative Miko is here to 3 weeks to follow-up on her right knee sprain. She is doing well. She states she is resumed most of her normal activities. At this point she has unrestricted range of motion of her knee with no strength deficits. There is no gross instability of her prosthesis. Her right lower extremities grossly neurovascularly intact. At this point she can perform activities to her tolerance return to the office as needed. Assessment: Right knee contusion with history of right total knee arthroplasty I spent a total of 10 minutes on the date of the service which included preparing to see the patient, pogh-fp-rdbt patient care, completing clinical documentation, performing a medically appropriate examination, and counseling and educating the patient/family/caregiver. documented in this encounter [facility] 11-01-2024 Telephone encounter Note Patient called to let us know that she was having pain from her welch to ankle on her right side. She stated that pain started yesterday morning after being seen on Monday. Advised patient that since Dr Benavides is not in the office, she could be seen at [facility]. Provided patient with hours of operation. Patient verbalized understanding. TESSA ROLAND MA [facility] 11-01-2024 Miscellaneous Notes Patient called to let us know that she was having pain from her welch to ankle on her right side. She stated that pain started yesterday morning after being seen on Monday. Advised patient that since Dr Benavides is not in the office, she could be seen at [facility]. Provided patient with hours of operation. Patient verbalized understanding. TESSA ROLAND MA documented in this encounter [facility] 10-30-2024 Note HNO ID: [id number] Author: LETY BENAVIDES DO Service: ? Author Type: Physician Type: Progress Notes Filed: 10/30/2024 14:42 Note Text: Addendum: Assessment/Plan: ASSESSMENT/PLAN: 1. Status post total right knee replacement using cement - ICD9: V43.65, ICD10: Z96.651 (primary diagnosis) At this point did have a discussion with regard to the nature of the problem in the context of her history of a right total knee arthroplasty. I did review the x-rays taken at the outside institution with the patient today. I did recommend the initiation of a home exercise program since she is improving already. She was in agreement this. Did instruct her today. She should continue to use anti-inflammatory medications and acetaminophen as needed for pain. She had no further questions at this time. 2. Contusion of right knee, initial encounter - ICD9: 924.11, ICD10: S80.01XA Lety Benavides DO I spent a total of 30 minutes on the date of the service which included preparing to see the patient, iwjd-sl-yhih patient care, completing clinical documentation, obtaining and/or reviewing separately obtained history, performing a medically appropriate examination, counseling and educating the patient/family/caregiver, ordering medications, tests, or procedures, independently interpreting results (not separately reported), and communicating results to the patient/family/caregiver. I agree with the Chief Complaint, ROS, and Past Histories independently gathered by the clinical lab support technician and the remaining scribed note accurately describes my personal service to the patient. CRISTOBAL Reece is a 79 year old female who presents with complaint of right knee pain. Patient has a history of right TKA in 2016. She reports falling from standing without loss of consciousness about 1 week ago. She does report that her leg twisted underneath her. She did not fall directly onto the knee. Her pain is with weightbearing. She does have pain with bed mobility and with sit to stand. She denies numbness or tingling. Current Outpatient Medications Medication Sig ibuprofen (MOTRIN) 800 mg tablet Take 800 mg by mouth twice daily. amLODIPine-benazepril (LOTREL) 5-10 mg per capsule Take 1 capsule by mouth once daily. No current facility-administered medications for this visit. Review of Systems Constitutional: Negative. HENT: Negative. Respiratory: Negative. Cardiovascular: Negative. Gastrointestinal: Negative. Endocrine: Negative. Skin: Negative. Neurological: Negative for numbness. Hematological: Negative. Musculoskeletal: Positive for joint swelling. Right Knee Exam Tenderness The patient is experiencing tenderness in the medial joint line and lateral joint line (TTP in the posterior knee). Range of Motion Extension: 5 Flexion: 120 Tests Varus: negative Valgus: negative Patellar apprehension: negative Other Erythema: absent Scars: present Sensation: normal Pulse: present Swelling: mild Comments: Mild ecchymosis at the medial gastroc and medial ankle. [facility] 10-30-2024 History of Present illness Narrative Addendum: Assessment/Plan: ASSESSMENT/PLAN: 1. Status post total right knee replacement using cement - ICD9: V43.65, ICD10: Z96.651 (primary diagnosis) At this point did have a discussion with regard to the nature of the problem in the context of her history of a right total knee arthroplasty. I did review the x-rays taken at the outside institution with the patient today. I did recommend the initiation of a home exercise program since she is improving already. She was in agreement this. Did instruct her today. She should continue to use anti-inflammatory medications and acetaminophen as needed for pain. She had no further questions at this time. 2. Contusion of right knee, initial encounter - ICD9: 924.11, ICD10: S80.01XA Lety Benavides, I spent a total of 30 minutes on the date of the service which included preparing to see the patient, [id number] patient care, completing clinical documentation, obtaining and/or reviewing separately obtained history, performing a medically appropriate examination, counseling and educating the patient/family/caregiver, ordering medications, tests, or procedures, independently interpreting results (not separately reported), and communicating results to the patient/family/caregiver. I agree with the Chief Complaint, ROS, and Past Histories independently gathered by the clinical lab support technician and the remaining scribed note accurately describes my personal service to the patient. CRISTOBAL Reece is a 79 year old female who presents with complaint of right knee pain. Patient has a history of right TKA in 2016. She reports falling from standing without loss of consciousness about 1 week ago. She does report that her leg twisted underneath her. She did not fall directly onto the knee. Her pain is with weightbearing. She does have pain with bed mobility and with sit to stand. She denies numbness or tingling. Current Outpatient Medications Medication Sig ibuprofen (MOTRIN) 800 mg tablet Take 800 mg by mouth twice daily. amLODIPine-benazepril (LOTREL) 5-10 mg per capsule Take 1 capsule by mouth once daily. No current facility-administered medications for this visit. Review of Systems Constitutional: Negative. HENT: Negative. Respiratory: Negative. Cardiovascular: Negative. Gastrointestinal: Negative. Endocrine: Negative. Skin: Negative. Neurological: Negative for numbness. Hematological: Negative. Musculoskeletal: Positive for joint swelling. Right Knee Exam Tenderness The patient is experiencing tenderness in the medial joint line and lateral joint line (TTP in the posterior knee). Range of Motion Extension: 5 Flexion: 120 Tests Varus: negative Valgus: negative Patellar apprehension: negative Other Erythema: absent Scars: present Sensation: normal Pulse: present Swelling: mild Comments: Mild ecchymosis at the medial gastroc and medial ankle. documented in this encounter [facility] 01-24-2024 History of Present illness Narrative Subjective Patient ID: Miko Reece is a 79 y.o. female who presents for Consult prolapse. Review of my last note, Arthur Jordan MD Physician Specialty: Obstetrics and Gynecology Progress Notes Signed Encounter Date: 09/21/2021 Signed Orders IO UA (nonautomated w/o microscopy); Status:Resulted - Requires Verification,Retrospective Authorization; Done: [id number] 01:25PM Patient Discussion/Summary Its been about a year since we saw Miko. 76 years old. 3 children all born vaginally She has known pelvic organ prolapse that recently had some vaginal itching. She want to make sure there is no infection On exam today we do see cystocele at the introitus. It is a grade 3 prolapse. I do not see any evidence of infection but there is some thinning of the tissues consistent with atrophy after menopause She states that she does not empty completely so she does a technique that seems to be consistent with double voiding. We discussed the importance of emptying her bladder on a regular basis. In terms of her prolapse has not really affected her quality of life. Have reassured her it can safe to continue monitoring. If it worsens or affects her quality of life we can discuss surgical correction Impression is recent vaginal itching, no evidence of infection. Prolapse that is consistent with grade 3 The patient was counseled regarding diagnostic results, instructions for management, risk factor reductions, prognosis, patient and family education, impressions, risks and benefits of treatment options and importance of compliance with treatment. total time of encounter was 28 minutes and 21 minutes was spent counseling. Chief Complaint C/O prolapse. Review of Systems Constitutional: no fever, no chills, no recent weight gain, no recent weight loss and no fatigue. Eyes: no eye pain, no vision problems and no dryness of the eyes. ENT: no hearing loss, no nosebleeds and no sinus congestion. Cardiovascular: no chest pain, no palpitations and no orthopnea. Respiratory: no shortness of breath, no cough and no wheezing. Gastrointestinal: no abdominal pain, no constipation, no nausea, no diarrhea and no vomiting. Genitourinary: vaginal itching, but no dysuria, no urinary incontinence, no vaginal dryness, no dyspareunia, no pelvic pain, no dysmenorrhea, no sexual problems, no change in urinary frequency, no vaginal discharge, no unexplained vaginal bleeding and no lesion/sore. Musculoskeletal: no back pain, no joint swelling and no leg edema. Integumentary: no rashes, no skin lesions, no nipple discharge, no breast pain and no breast lump. Neurological: no headache, no numbness and no dizziness. Psychiatric: no sleep disturbances, no anxiety and no depression. Endocrine: no hot flashes, no loss of hair and no hirsutism. Hematologic/Lymphatic: no swollen glands, no tendency for easy bleeding and no tendency for easy bruising. All other systems have been reviewed and are negative for complaint. Active Problems Problems Encounter for screening mammogram for malignant neoplasm of breast (V76.12) (Z12.31) Hip stiffness (719.55) (M25.659) Left hip pain (719.45) (M25.552) Visit for screening mammogram (V76.12) (Z12.31) Allergies Medication No Known Drug Allergies Recorded By: Carmen Clements; 08/29/2020 11:42:54 AM Current Meds Medication Name Instruction amLODIPine Besylate 5 MG Oral Tablet Ibuprofen 800 MG Oral Tablet take 1 tablet by mouth twice a day for ONE MONTH Vitals Vital Signs Recorded: [id number] 01:28PM Systolic 168 Diastolic 70 Height 5 ft 3 in Weight 130 lb BMI Calculated 23.03 kg/m2 BSA Calculated 1.61 LMP post menopausal 3 Para 3 Physical Exam Constitutional: Alert and in no acute distress. Well developed, well nourished Head and Face: Head and face: normal Eyes: Normal external exam - nonicteric sclera, extraocular movements intact (EOMI) and no ptosis. Ears, Nose, Mouth, and Throat: External inspection of ears and nose: normal Neck: no neck asymmetry. Supple and thyroid not enlarged and there were no palpable thyroid nodules Cardiovascular: Heart rate and rhythm were normal, normal S1 and S2, no gallops, and no murmurs Pulmonary: No respiratory distress and clear bilateral breath sounds Chest: Breasts: normal appearance, no nipple discharge and no skin changes and palpation of breasts and axillae: no palpable mass and no axillary lymphadenopathy Abdomen: soft nontender; no abdominal mass palpated, no organomegaly and no hernias Genitourinary: external genitalia: normal, no inguinal lymphadenopathy, Bartholin's urethral and Palatine's glands: normal, urethra: normal, bladder: normal on palpation and perianal area: normal Vagina: normal. Cervix: Normal. Uterus: Normal. Right Adnexa/parametria: Normal. Left Adnexa/parametria: Normal. Musculoskeletal: no joint swelling seen, normal movements of all extremities Skin: normal skin color and pigmentation, normal skin turgor, and no rash. Neurologic: cranial nerves: non-focal. grossly intact Psychiatric: alert and oriented x 3., affect normal to patient baseline and mood: appropriate Results/Data IO UA (nonautomated w/o microscopy) [id number] 01:25PM Arthur Jordan Test Name Result Flag Reference IO Glucose - Urine Negative IO Blood Negative IO Protein, Urine Negative IO Nitrite, Urine Negative IO Leukocytes Negative IO Glucose - Urine Negative IO Blood Negative IO Protein, Urine Negative IO Nitrite, Urine Negative IO Leukocytes Negative Signatures Electronically signed by : Arthur Jordan MD; Sep 21 2021 1:40PM EST (Author) Last signed by: Arthur oJrdan MD at 09/21/2021 1:40 PM Presents today complaining of increased constipation. Seen her primary. Has increased fiber. Wondering if it is related to prolapse. Reassured her that typically prolapse does not cause constipation. Occasionally patients do have to splint to help complete emptying. She is not having to do this Exam her prolapse is very stable. Grade 2-3 cystocele. Would recommend follow-up with gastroenterology Review of Systems Gastrointestinal: Positive for constipation. Objective Physical Exam Genitourinary: General: Normal vulva. Vagina: Prolapsed vaginal mena present. Comments: Grade 2-3 cystocele Assessment/Plan Recommend seeing gastroenterology for constipation. Stable pelvic organ prolapse Arthur Jordan MD 01/24/24 10:26 AM documented in this encounter [facility] Work Phone: 09-19-2023 History of Present illness Narrative History Of Present Illness Miko Reece is a 78 y.o. female presenting with high pressure in left ear. She is kindly referred by Dr. Cecile Ferro. She had a hearing test done on 08.28.2023, which has shown type c tympanogram in her left ear with -176 dapa. I have not seen effusion on both sides on today's examination. I recommend considering using hearing aids. Plan 1-follow-up as needed Past Medical History She has no past medical history on file. Surgical History She has no past surgical history on file. Social History She has no history on file for tobacco use, alcohol use, and drug use. Family History No family history on file. Allergies Patient has no known allergies. Review of Systems None listed Physical Exam General appearance: Healthy-appearing, well-nourished, well groomed, in no acute distress. Head and Face: Atraumatic with no masses, lesions, or scarring. Salivary glands: No tenderness of the parotid glands or parotid masses. No tenderness of the submandibular glands or submandibular masses. Facial strength: Normal strength and symmetry, no synkinesis or facial tic. Eyes: Conjunctivas look non-hyperemic bilaterally Ears: Bilaterally ear canals look normal. Tympanic membranes look intact, no hyperemia, fluid or retraction. Hearing grossly normal. Nose: Mucosa looks normal. No purulent discharge. Septum deviated to right Oral Cavity/Mouth: Lips and tongue look normal. Throat: No postnasal discharge. No tonsil hypertrophy. No hyperemia. Neck: Symmetrical, trachea midline. Pulmonary: Normal respiratory effort. Lymphatic: No palpable pathologic lymph nodes at neck. Neurological/Psychiatric Orientation to person, place, and time: Normal. Mood and affect: Normal. Extremities: No clubbing. Skin: No significant skin lesions were noted at face or neck Last Recorded Vitals There were no vitals taken for this visit. Relevant Results Prior to Admission medications Not on File No results found. Assessment/Plan Miko Reece is a 78 y.o. female presenting with high pressure in left ear. She is kindly referred by Dr. Cecile Ferro. She had a hearing test done on 08.28.2023, which has shown type c tympanogram in her left ear with -176 dapa. I have not seen effusion on both sides on today's examination. I recommend considering using hearing aids. Plan 1-follow-up as needed [facility] documented in this encounter [facility] Work Phone: 03-23-2023 Note Send Summary: Discharge Summary Providers: Provider RoleProvider Name Janee Rodriguez, Arsenio Palacio Note Recipients: pcp Discharge: Summary: Admission Date: .21-Mar-2023 19:48:00 Discharge Date: 23-Mar-2023 Attending Physician at Discharge: Patric Admission Reason: encephalopathy Final Discharge Diagnoses: Delirium, acute Procedures: none Vital Signs: T PRBPMAPSpO2 [id number]% Date/Time03/23 8: 8: 8: 8: [id number] 8:00 Range(36.6C - 39.4C ) (89 - 121 ) (16 - 20 ) (100 - 158 )/ (47 - 80 ) (106 - 106 ) (92% - 94% ) Highest temp of 39.4 C was recorded at 03/22 16:19 Date: Weight/Scale Type:Height: 21-Mar-2023 20:0357.5 kg 160 cm Physical Exam: General: Awake, alert, and oriented x3. NAD. Appears stated age. Neuro: Normal speech and sensation. Motor function is normal with muscle strength 5/5 in bilateral upper and lower extremities. No focal deficits. Head: N/C and AT, PERRL, EOMI, MMM, no scleral icterus, no JVD, no bruits CVS: chest normal in appearance, non-tender to palpation. RRR, Normal S1, S2 without additional sounds. No murmurs/gallops/rubs appreciated. 2+ equal bilateral extremity pulses. Lung: CTAB with symmetrical chest rise and normal work of breathing. No wheezes or rhonchi. No accessory muscle use or acute distress. Abdomen: no visible deformities, soft, +bs, non-tender to palpation, nondistended, and without organomegaly. No gaurding, negative Lester's sign, negative Psoas sign, no rebound tenderness. : No discarge, vesicles, or other abnormalities. MSK: normal gross ROM in upper and lower extremities. 5/5 Strength in upper and lower extremities. Extremities: upper and lower extremities without trauma or deformities, no swelling or erythema, normal capillary refills. Warm and well perfused. Skin: warm, dry and intact without rashes or lesions. Nailbed is pink without cyanosis or clubbing. Psych: icompletekly lucid and appropriate vs admission. Hospital Course: MIKO REECE is a 78 year old Female with a PMH of HTN, arthritis who presents to [facility] ED due to altered mental status. Patient states that she is unsure why she is here and would like to get to the bottom of it. is not present in the room during exam, but reports state that he reported the patient fell one week ago. states that the patient has had intermittent confusion as well. The patient has been coming to the outpatient PT team at [facility] from a long time, and the stated that he thinks maybe the patient caught something from the hospital. Patient attests to this as well saying she fell in the bathtub from a mechanical fall on her tailbone. Denies hitting head. In addition, patient states that her keeps saying she is confused but she repeatedly tells us im not nuts. Patient is able to deny CP, palpitations, SOB, cough, fever, n/v/d, COREAS, abdominal pain, changes in vision/hearing. 10 points ROS negative except what was discussed above. 1) Acute Encephalopathy likely 2/2 UTI vs other - UA shows 1+ bacteria with +white cells, culture pending - no leukocytosis - On Rocephin IV Day 2---> to finish out course of cefuroxime 500mg by mouth twice a day - CT Head, C spine negative for acute findings - denies new medications, recent illness, ill contacts - I saw the patient a second time today after my initial exam and noted that she was having an episode where she was responsive to her name but was essentially AOX0 and repeatedly closing her eyes. Borderline lethargic and not able to follow commands or answer questions appropriately. Several minutes later, she came out of this episode and returned to her baseline AOx3. She had no recollection that of this episode occurring. I am considering that this patient may potentially have an underlying seizure disorder that has not been previously diagnosed. She did deny knowledge of a seizure hx and I could not locate any reports of this in the EMR. I dod not think this is acute delirium. However, her symptoms may also be secondary to the UTI. - Will continue to monitor and assess for any other episodes of the above. May consider Neurology/EEG/MRI based on clinical course and findings. 2) mild UTI- will finish out cefuroxime. If episodes of this occur out of the context of a correlative cause like UTI, may consider neurology or other workup. Discharge Information: and Continuing Care: Lab Results - Pending: Culture, Blood Drawn at 22-Mar-2023 16:53:00 Culture, Blood Drawn at 22-Mar-2023 16:45:00 Culture, Blood Drawn at 21-Mar-2023 20:35:00 Culture, Blood Drawn at 21-Mar-2023 20:35:00 Radiology Results - Pending: None Discharge Instructions: Activity: activity as tolerated. May shower.. May return to school/work. No pushing, pulling, or lifting objects greater than 10 (more content not included)... [facility] 03-22-2023 Note Clinical Note - Phar myrna v2: Education: Document TopicMedication Education Is This Intervention Medication Reconciliation Relatedno Learnerpatient Barrierscognitive limitations Outcome0=unable to meet Electronic Signatures: Dulce Maria Castaneda () (Signed 22-Mar-2023 17:23) Authored: Education Last Updated: 22-Mar-2023 17:23 by Dulce Maria Castaneda () [facility] 03-22-2023 Note History of Present I llness: HPI: MIKO REECE is a 78 year old Female with a PMH of HTN, arthritis who presents to [facility] ED due to altered mental status. Patient states that she is unsure why she is here and would like to get to the bottom of it. is not present in the room during exam, but reports state that he reported the patient fell one week ago. states that the patient has had intermittent confusion as well. The patient has been coming to the outpatient PT team at [facility] from a long time, and the stated that he thinks maybe the patient caught something from the hospital. Patient attests to this as well saying she fell in the bathtub from a mechanical fall on her tailbone. Denies hitting head. In addition, patient states that her keeps saying she is confused but she repeatedly tells us im not nuts. Patient is able to deny CP, palpitations, SOB, cough, fever, n/v/d, COREAS, abdominal pain, changes in vision/hearing. 10 points ROS negative except what was discussed above. In the ED, vitals were Temp 101.1F, HR 111, RR 20, SpO2 95%, BP 156/78. Given IVF and Tylenol in the ED. Potassium repletion given as well. PMH: as above SH: denies alcohol, illicit drug use, tobacco Surgical Hx: none reported FH: none reported Home Meds: see med rec Comorbidities: Comorbidites: Comorbid Conditionshypertension Social History: Social History: Smoking Statusnever smoker (1) Alcohol Usedenies(1) Drug Usedenies (1) Allergies: penicillin: Unknown Medications Prior to Admission: amlodipine 5 mg tablet: 1 tab(s) orally once a day ibuprofen 800 mg oral tablet: 1 tab(s) orally 3 times a day, As Needed Tylenol 500 mg oral tablet: 2 tab(s) orally 3 times a day, As Needed ergocalciferol 1.25 mg (50,000 intl units) oral capsule: 1 cap(s) orally once a week. Review of Systems: Incomplete ROS: see HPI Objective: Objective Information: ---- Intake and Output ----- Mn/Dy/Year TimeIntakeOutputNet Mar 22, 2023 2:00 [id number] Physical Exam Narrative: Physical Exam: General: Awake, alert, and oriented x3. NAD. Appears stated age. Neuro: Normal speech and sensation. Motor function is normal with muscle strength 5/5 in bilateral upper and lower extremities. No focal deficits. Head: N/C and AT, PERRL, EOMI, MMM, no scleral icterus, no JVD, no bruits CVS: chest normal in appearance, non-tender to palpation. RRR, Normal S1, S2 without additional sounds. No murmurs/gallops/rubs appreciated. 2+ equal bilateral extremity pulses. Lung: CTAB with symmetrical chest rise and normal work of breathing. No wheezes or rhonchi. No accessory muscle use or acute distress. Abdomen: no visible deformities, soft, +bs, non-tender to palpation, nondistended, and without organomegaly. No gaurding, negative Lester's sign, negative Psoas sign, no rebound tenderness. : No discarge, vesicles, or other abnormalities. MSK: normal gross ROM in upper and lower extremities. 5/5 Strength in upper and lower extremities. Extremities: upper and lower extremities without trauma or deformities, no swelling or erythema, normal capillary refills. Warm and well perfused. Skin: warm, dry and intact without rashes or lesions. Nailbed is pink without cyanosis or clubbing. Pscyh: in denial of why she is here. Moments of forgetfulness have also been noted. Medications: Medications: Continuous Medications 1. Sodium Chloride 0.9% Infusion: 1000 mL IntraVenous Scheduled Medications 1. amLODIPine (NORVASC): 5 mg Oral Daily 2. cefTRIAXone 1 gram/ Dextrose 5% IVPB Premixed Soln 50 mL: 50 mL IntraVenous Piggyback Every 24 Hours 3. Enoxaparin SubCutaneous: 40 mg SubCutaneous Every 24 Hours PRN Medications 1. Acetaminophen: 650 mg Oral Every 4 Hours 2. Acetaminophen Rectal: 325 mg Rectal Once 3. Ondansetron Injectable: 4 mg IntraVenous Push Every 4 Hours 4. Sodium Chloride 0.9% Injectable Flush: 10 mL IntraVenous Flush Every 8 Hours and as Needed Recent Lab Results: Results: CBC: 03/22/2023 06:40 \ Hgb / \ 12.1 / WBC Plt 9.9 124 L / Hct \ / 36.7 \ RBC: 3.90 L MCV: 94 Neutrophil %: 90.1 CMP: 03/21/2023 19:30 NA+ Cl- BUN / 136 96 L 24 H / Glucose 125 H K+ HCO3- Creat \ 3.2 L 29 0.90 \ \ T Bili / \ 1.1 / AST x ---- x ALT 32 x ---- x 28 / Alk P \ / 93 \ Calcium : 8.8 Anion Gap : 14 Albumin : 4.0 T Protein : 7.7 Radiology Results: Results: Impression: No acute fracture or malalignment. Moderate bilateral hip osteoarthrosis. Trace right hip joint effusion. CT Low Extremity without Contrast Bilateral [Mar 21 2023 10:47PM] Impression: No acu (more content not included)... [facility] 02-15-2023 History of Present illness Narrative CRISTOBAL Reece is a 78 year old female who presents with a complaint of pain in the right hip that radiates down to the knee and into the foot. She states that the pain started at Thanksgiving last year after taking a 3 mile walk where she kept up a quicker pace that she was used to. She started with some career specialist which did not help significantly. She feels best in the morning and develops increased pain with weightbearing. She denies numbness or tingling. She has a history of right TKA in 2016 with no interval injuries. Current Outpatient Medications Medication Sig ibuprofen (MOTRIN) 800 mg tablet Take 800 mg by mouth twice daily. amLODIPine-benazepril (LOTREL) 5-10 mg per capsule Take 1 capsule by mouth once daily. No current facility-administered medications for this visit. Review of Systems Constitutional: Negative. HENT: Negative. Respiratory: Negative. Cardiovascular: Negative. Gastrointestinal: Negative. Endocrine: Negative. Skin: Negative. Neurological: Negative for numbness. Hematological: Negative. Musculoskeletal: Negative. Right Knee Exam Muscle Strength The patient has normal right knee strength. Tenderness The patient is experiencing no tenderness. Range of Motion The patient has normal right knee ROM. Tests Varus: negative Valgus: negative Drawer: Anterior - negative Posterior - negative Patellar apprehension: negative Other Erythema: absent Scars: present Sensation: normal Pulse: present Swelling: none Right Hip Exam Tenderness The patient is experiencing tenderness in the greater trochanter. Range of Motion Abduction: normal Adduction: 5 Flexion: normal External rotation: normal Internal rotation: normal Muscle Strength Abduction: 4/5 Adduction: 4/5 Flexion: 4/5 Tests SOHA: negative Aaron: positive Other Erythema: absent Scars: absent Sensation: normal Comments: Negative log roll test. Negative pelvic rock/compression. Addendum: Assessment: Right lower extremity radiculitis, primary osteoarthritis right hip and history of right total knee arthroplasty Plan: At this time I did have a long discussion with regard to the nature of her problem in the context of her symptomatic relief from career specialist. We did discuss different types of manual medicine for her including high velocity low amplitude treatments versus proprioceptive neuromuscular facilitation and soft tissue balancing. At this point I see no significant problems with her right knee arthroplasty based on physical exam findings as well as her x-ray findings. I do see some mild arthritic changes in her right hip I do not believe that this can explain her pain pattern or her symptoms. I do think that in addition to the high velocity treatments she states that she has been receiving she would benefit from physical therapy/proprioceptive neuromuscular facilitation as well as soft tissue balancing exercises. She states she understood. If she fails to respond to this we would consider corticosteroid injection into the right hip. After interviewing and examining the patient and reviewing the above note I do agree with the above findings. I spent a total of 30 minutes on the date of the service which included preparing to see the patient, [id number] patient care, completing clinical documentation, obtaining and/or reviewing separately obtained history, performing a medically appropriate examination, counseling and educating the patient/family/caregiver, ordering medications, tests, or procedures, independently interpreting results (not separately reported), and communicating results to the patient/family/caregiver. documented in this encounter [facility] Evaluation note Diagnosis Arthritis of hip- Primary Unspecified arthropathy, pelvic region and thigh Status post total right knee replacement using cement [facility] Arthritis of hip- Primary Unspecified arthropathy, pelvic region and thigh Status post total right knee replacement using cement [facility] Diagnosis Presbycusis of both ears- Primary documented in this encounter [facility] Work Phone: Evaluation note* Diagnosis Midline cystocele- Primary Cystocele, midline Urine frequency Constipation, unspecified constipation type documented in this encounter [facility] Work Phone: Evaluation note* Diagnosis Right knee pain Pain in joint, lower leg documented in this encounter [facility] Work Phone: Evaluation note* Diagnosis Status post total right knee replacement using cement- Primary Contusion of right knee, initial encounter [facility] Diagnosis Status post total right knee replacement using cement- Primary Contusion of right knee, initial encounter [facility]* Noting patient to be limited with B ER of hips. Completing all interventions well. * Response to treatment: improved joint mobility/ROM, improved strength, improved flexibility and improved knowledge and understanding of condition. [facility] Work Phone: History of Present illness Narrative* Some difficulty with ER stretch. Patient was slightly unsteady during agility ladder trials. She was able to complete all exercise with no increase in pain. * Response to treatment: improved joint mobility/ROM and improved knowledge and understanding of condition. * Patient was able to complete today's treatment with some difficulty. [facility] Work Phone: Hospital Discharge instructions* Activity:activity as tolerated. May shower. May return to school/work Instructions:. No pushing, pulling, or lifting objects greater than 10 pounds. Weight-bearing Instructions: full weight bearing. * Call Provider If:Breathing faster than normal. Breathing harder than normal or having retractions. Fever of 100.4 F (38 C) or higher. Temperature is greater than 102 degrees. Chills. Drinking less than normal. Not being able to go 4-6 hours between albuterol treatments. Urinating less than normal, over 1 day. Urinating less than 4 times per day. Acting very sleepy and difficult to awaken. Vomiting (throwing up) and not able to eat or drink for 12 hours. 3 or more loose, watery bowel movements in 24 hours (diarrhea). * Gold Form - Other Clinicians:Hearing Examiner/Care Transitions Team Instructions: MARIBELL Gary, CARE TRANSITIONS [phone]. It is important to me that you understand your transition plan so that you are able to remain healthy outside of the hospital. I am available for any concerns, questionsyou may have after discharge. The number above is a secure message line. If I do not answer, pleaseleave a message and I will return your call as soon as I get back to the office: M-F 8-4:30pm. [facility] for referral (narrative)* Reason for Referral: Altered mental status, UTI [facility] for visit Narrative* Imaging (Routine) - Pending Review Specialty Diagnoses / Procedures Referred By Yasmeen álvarez Referred To Contact Radiology Diagnoses Right knee pain Procedures XR knee right 4+ views XR knee right 3 views XR knee right 1-2 views Arsenio Shabazz MD [address] [address] Phone: tel: fax: Referral ID Status Reason Start Date Expiration Date Visits Requested Visits Authorized [id number] Pending Review Perform Procedure 10/23/2024 10/23/2025 1 1 [facility] Work Phone: Summary Purpose Family History No Family History Records FoundNo Family History Records FoundNo Family History Records FoundNo Family History Records FoundNo Family History Records FoundNo Family History Records FoundNo Family History Records FoundNo Family History Records FoundNo Family History Records FoundNo Family History Records Found Advance Directives No Advanced Directives Records FoundNo Advanced Directives Records FoundNo Advanced Directives Records FoundNo Advanced Directives Records FoundNo Advanced Directives Records FoundNo Advanced Directives Records FoundNo Advanced Directives Records FoundNo Advanced Directives Records FoundNo Advanced Directives Records FoundNo Advanced Directives Records Found Reason for Referral Specialty Diagnoses / Procedures Referred By Yasmeen álvarez Referred To Contact Physical Therapy Diagnoses Arthritis of hip Status post total right knee replacement using cement Procedures CONSULT TO PHYSICAL THERAPY PHYSICAL THERAPY EVALUATION HIGH COMPLEX 45 MINS Swati Ku APRN.[employer] [address] [place] [address] Referral ID Status Reason Start Date Expiration Date Visits Requested Visits Authorized [id number] Pending Review Auto-Generat ed Referral 02/17/2023 02/17/2024 1 1 Additional Source Comments INFORMATION SOURCE (unrecogn ized section and content) DATE CREATED AUTHOR 04/02/2018 [facility] DATE CREATED AUTHOR AUTHOR'S ORGANIZ ATION 01/01/2019 [facility] DATE CREATED AUTHOR AUTHOR'S ORGANIZ ATION 03/21/2023 [facility] DATE CREATED AUTHOR AUTHOR'S ORGANIZ ATION 04/03/2023 [facility] DATE CREATED AUTHOR AUTHOR'S ORGANIZ ATION 05/24/2023 [facility] DATE CREATED AUTHOR AUTHOR'S ORGANIZ ATION 01/25/2024 [facility] DATE CREATED AUTHOR AUTHOR'S ORGANIZ ATION 03/22/2024 [facility] DATE CREATED AUTHOR AUTHOR'S ORGANIZ ATION 10/29/2024 [facility] DATE CREATED AUTHOR AUTHOR'S ORGANIZ ATION 11/01/2024 [facility] DATE CREATED AUTHOR AUTHOR'S ORGANIZ ATION 11/22/2024 [facility] Source Comments (unrecognize d section and content) In the event this informatio n is protected by the Federal Confidentiality of Alcohol and Drug Abuse Patient Records regulations: The Federal rules restrict any use of the information to criminally investigate or prosecute any alcohol or drug abuse patient.[facility] the event this information is protected by the Federal Confidentiality of Alcohol and Drug Abuse Patient Records regulations: The Federal rules restrict any use of the information to criminally investigate or prosecute any alcohol or drug abuse patient.[facility] the event this information is protected by the Federal Confidentiality of Alcohol and Drug Abuse Patient Records regulations: The Federal rules restrict any use of the information to criminally investigate or prosecute any alcohol or drug abuse patient.[facility] the event this information is protected by the Federal Confidentiality of Alcohol and Drug Abuse Patient Records regulations: The Federal rules restrict any use of the information to criminally investigate or prosecute any alcohol or drug abuse patient.[facility] the event this information is protected by the Federal Confidentiality of Alcohol and Drug Abuse Patient Records regulations: The Federal rules restrict any use of the information to criminally investigate or prosecute any alcohol or drug abuse patient.[facility] Reason for Visit (unrecogniz ed section and content) Reason Comments Pain Knee Pain Reason Comments Orders Reason Comments Consult prolapse Reason Comments Knee Pain Swelling Reason Comments Patient Question Reason Comments Follow Up Knee Pain Care Teams (unrecognized sec tion and content) [employer]ment Forester Relationship Specialty Start Date End Date Arsenio Arteaga MD PCP - General Family Medicine 09/25/13 Proc[employer]ment Forester Relationship Specialty Start Date End Date Arsenio Arteaga MD PCP - General Family Medicine 09/25/13 Procurement Forester Relationship Specialty Start Date End Date Arsenio Arteaga MD [address] [place] [address] PCP - General 04/07/00 Procurement Forester Relationship Specialty Start Date End Date Arsenio Arteaga MD [address] [place] [address] PCP - General 04/07/00 Procurement Forester Relationship Specialty Start Date End Date Arsenio Arteaga MD [address] [place] [address] PCP - General 04/07/00 Arsenio Arteaga MD [address] [place] [address] PCP - [employer] PCP 12/08/23 Procurement Forester Relationship Specialty Start Date End Date Arsenio Arteaga MD PCP - General Family Medicine 09/25/13 Procurement Forester Relationship Specialty Start Date End Date Arsenio Arteaga MD PCP - General Family Medicine 09/25/13 Procurement Forester Relationship Specialty Start Date End Date Arsenio Arteaga MD PCP - General Family Medicine 09/25/13 <item> Privacy Markings (unrecogniz ed section and content) Section Author: Cynthia Osman PROHIBITION ON REDISCLOSURE OF CONFIDENTIAL INFORMATION This notice accompanies a disclosure of information concerning a client made to you with the consent of such client. FOR RECORDS PERTAINING TO PATIENTS WHO ARE OR HAVE BEEN ENROLLED IN A CHEMICAL DEPENDENCY/SUBSTANCEABUSE PROGRAM, SOME INFORMATION MAY BE OMITTED. This clinical summary was aggregated from multiple sources. Caution should be exercised in using it in the provision of clinical care. This summary normalizes information from multiple sources, and as a consequence, information in this document may materially change the coding, format and clinical context of patient data. In addition, data may be omitted in some cases. CLINICAL DECISIONS SHOULD BE BASED ON THE PRIMARY CLINICAL RECORDS. [employer] [facility]. provides no warranty or guarantee of the accuracy or completeness of information in this document.
[2025-05-24 15:34] LABS: Mucous, Urine 0 SEEN /hpf (<or=2+)
[2025-05-24 15:43] LABS: Color, Urine Yellow (Yellow); Glucose, Dipstick Normal (Normal); Ketone-Dipstick 15 mg/dl (Negative); Leukocyte Esterase-Dipstick Negative /ul (Negative); Nitrite-Dipstick Negative (Negative); Occult Blood-Urine 150 /ul (Negative); Protein-Dipstick 30 mg/dl (Negative); Specific Gravity, Urine 1.010 (1.002-1.030); Urine Bilirubin Dipstick Negative (Negative)
[2025-05-24 15:50] LABS: Red Blood Cells-Urine 0-5 SEEN /hpf (0-5); Squamous Epithelial Cells - UA 0-5 SEEN /hpf (5-10)
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
[2025-05-24 16:31] LABS: Troponin T High Sens 2 HR 43 ng/L (<=14)
[2025-05-24 17:34] LABS: CPK Total, Creatine Kinase 1389 U/L (24-195)
[2025-05-24] MEDS: 0.9% Normal Saline (1000mL) 1,000 ML 150 ML IV (17:45)
[2025-05-24 19:40] LABS: Troponin T High Sens 4 HR 43 ng/L (<=14)
== END 2025-05-24 20:34 | disposition short-term general hospital (02) ==
PROVIDERS: Emergency Medicine; Emergency Provider Emergency Medicine; Visit Provider Emergency Medicine
DX: S26.91XA Contusion of heart, unspecified with or without hemopericardium, initial encounter (principal); S12.601A Unspecified nondisplaced fracture of seventh cervical vertebra, initial encounter for closed fracture; S32.10XA Unspecified fracture of sacrum, initial encounter for closed fracture; S32.019A Unspecified fracture of first lumbar vertebra, initial encounter for closed fracture; I45.10 Unspecified right bundle-branch block; S22.21XA Fracture of manubrium, initial encounter for closed fracture; R00.0 Tachycardia, unspecified; I10 Essential (primary) hypertension; S09.90XA Unspecified injury of head, initial encounter; S16.1XXA Strain of muscle, fascia and tendon at neck level, initial encounter; S00.83XA Contusion of other part of head, initial encounter; V47.5XXA Car driver injured in collision with fixed or stationary object in traffic accident, initial encounter; W22.10XA Striking against or struck by unspecified automobile airbag, initial encounter; Z79.899 Other long term (current) drug therapy; Z96.651 Presence of right artificial knee joint
CPT/HCPCS: 70450; 70498; 71250; 72125; 74176; 80048; 81001; 82077; 82550; 84484; 85025; 93005; 96361; 96374; 96375; 99285; Q9967; A4216; J2405